=== PATIENT | female | born 1965 | race Caucasian/White ===

== ENCOUNTER 2024-11-20 13:40 | Emergency (ER) | payer OTHER, SELFPAY ==
--- NOTE | ~2024-11-20 | XR_ITS ---
CHEST RADIOGRAPH, PA AND LATERAL CLINICAL HISTORY: Shortness of breath. COMPARISON: None available TECHNIQUE: PA and lateral views of the chest. FINDINGS Device projects over the left atrium. The remainder of the cardiomediastinal silhouette is otherwise unremarkable. Likely calcified granuloma projecting over the right mid to lower lung field. The remainder of the lungs are clear. Prior fracture deformity within the right ribs. Remaining visualized osseous structures and soft tissues are unremarkable. IMPRESSION: No focal infiltrate or effusion. Reviewed, dictated and finalized at location A. LT WORKER
--- NOTE | ~2024-11-20 | CT_ITS ---
EXAMINATION: CTA chest PE protocol DATE: 11/20/2024 18:23 CARTOGRAPHY PROFESSOR INDICATION: Shortness of breath and elevated d-dimer TECHNIQUE: Computed tomographic angiography (CTA) of the chest was performed with 100 mL Omnipaque-35 0 intravenous contrast. The dose-length product was 281.78 mGy-cm. Maximum intensity projection 3D-re constructions of the aorta and other arteries were constructed by the technologist on a separate work station. COMPARISON: None. FINDINGS: No filling defects are identified within the proximal main pulmonary arteries. Thoracic aorta is unremarkable. Implanted device between the right and left atria. The heart is of normal size, without pericardial effusion. Panlobular emphysematous disease. Calcified nodule within the right upper and middle lobes. Remainder of the lungs are clear. IMPRESSION: No pulmonary embolus. No aortic dissection. Reviewed, dictated and finalized at location A. OGRAPHY PROFESSOR
--- NOTE | 2024-11-20 13:43 | ECG_ITS ---
Test Date: 2024-11-20 13:50:24 Measurements Intervals [place] Rate: 104 P: 57 GA: 133 QRS: 42 QRSD: 129 T: 20 QT: 340 QTc: 449 Interpretive Statements SINUS TACHYCARDIA POSSIBLE LEFT ATRIAL ENLARGEMENT [-0.1mV P WAVE IN V1/V2] RIGHT BUNDLE BRANCH BLOCK [120+ ms QRS DURATION, UPRIGHT V1, 40+ ms S IN I/aVL/V4/V5/V6] ABNORMAL ECG Electronically Signed On 11-20-2024 13:53:06 FORM GRADER by Rohan Pinto M.D.
[2024-11-20 13:50] VITALS: BP 147/87; PULSE 108; RESP 18; TEMP 36.1; O2SAT 98
[2024-11-20 14:05] LABS: Basophils Percent Auto 0.2 % (0.2-1.2); Eosinophils Percent Auto 0.2 % (0-4.4); Hematocrit 40.5 % (37.0-47.0); Hemoglobin 14.4 g/dL (12.0-15.0); Immature Granulocyte Absolute 0.02 K/mm3 (0.00-0.031); Immature Granulocyte Percent A 0.2 % (0-0.5); Lymphocytes Absolute Auto 1.62 K/mm3 (0.9-3.2); Lymphocytes Percent Auto 18.6 % (18.3-44.2); Mean Corpuscular HGB Conc 35.6 g/dl (32-36); Mean Corpuscular Hemoglobin 30.4 pg (26-34); Mean Corpuscular Volume 85.4 fl (80-100); Mean Platelet Volume 10.8 fl (7.4-10.4); Monocytes Absolute Auto 0.8 K/mm3 (0.1-0.6); Monocytes Percent Auto 9.3 % (2.6-8.5); Neutrophils Absolute Auto 6.2 K/mm3 (1.3-6.7); Neutrophils Percent Auto 71.5 % (45.5-73.1); Platelet Count Result 302 k/mm3 (150-375); Red Blood Count 4.74 M/mm3 (4.2-5.4); Red Cell Distribution Width 12.7 % (11.5-14.5); White Blood Count 8.7 K/mm3 (4.5-10.0)
[2024-11-20 14:25] LABS: Prothrombin Time 13.9 Seconds (11.1-14.7)
[2024-11-20 14:26] LABS: Partial Thromboplastin Time 24.1 Seconds (22.3-36.8)
[2024-11-20 14:34] LABS: Alanine Aminotransferase 36 U/L (6-35); Albumin Level 4.2 g/dL (3.5-5.1); Alkaline Phosphatase 100 U/L (38-126); Anion Gap 8 mmol/L (4-12); Aspartate Amino Transferase 39 U/L (14-36); Blood Urea Nitrogen 41 mg/dL (7-17); Calcium 10.5 mg/dL (8.4-10.2); Carbon Dioxide 21 mmol/L (22-30); Chloride 105 mmol/L (98-107); Estimated Glomerular Filt Rate 51; Glucose 115 mg/dL (65-110); Potassium 4.2 mmol/L (3.4-5.0); Sodium 134 mmol/L (137-145)
[2024-11-20 14:41] LABS: Influenza A QL RT-PCR Negative (Negative); Influenza B QL RT-PCR Negative (Negative); RSV RNA, RT-PCR Negative (Negative); SARS-CoV-2 RNA PCR Negative (Negative)
[2024-11-20 14:45] LABS: NT Pro B Type Natriuretic Pept 73 pg/mL (19.9-100); Troponin I 0.012 ng/mL (0.000-0.034)
--- NOTE | 2024-11-20 16:15 | ED_ITS ---
HPI - SOB/Dyspnea General Chief Complaint: Shortness of Breath/Dyspnea Stated Complaint: dyspnea Time Seen by Provider: 11/20/24 16:05 Source: patient Mode of arrival: ambulatory Limitations: no limitations History of Present Illness HPI Narrative: This is a 59-year-old female who presents to the ED for chief complaint of dyspnea ongoing for the past several months. Patient states that she becomes dyspneic on exertion quite easily and is seems to be getting worse. States that walking across the room or going up and downstairs caused her to become very winded. States that she was really struggling today after holiness. States that she has a PCP appointment coming up in the spring but she has been putting these symptoms off for several months. Denies associated chest pain, palpitations, cough, fevers, extremity swelling. States history of smoking but quit a couple years ago. Related Data Allergies Allergy/AdvReac Type Severity Reaction Status Date / Time No Known Allergies Allergy Verified 11/20/24 16:11 Review of Systems 2 Review of Systems: All systems as dictated in HPI Exam 2 Narrative: GENERAL: Well-appearing, well-nourished, and in no acute distress. HEAD: Normocephalic, atraumatic. EYES: PERRLA and EOMI. ENT: Nares clear, no rhinorrhea or epistaxis. Mucous membranes moist. Oropharynx without tonsillar hypertrophy exudate or other lesions. NECK: Supple. No adenopathy or masses. CHEST: No respiratory distress. Clear to auscultation. No wheezes rales or rhonchi. HEART: Regular rate and rhythm. No murmur heard. Normal peripheral pulses. ABDOMEN: Soft, nontender, nondistended, normal active bowel sounds. MSK: Normal range of motion. No edema. SKIN: Warm, dry, no rash. NEURO: Alert and oriented x4. No focal deficits. PSYCH: Normal mood and affect. Course Vital Signs Vital signs: Vital Signs Temperature 97 F L 11/20/24 13:50 Pulse Rate 108 H 11/20/24 13:50 Respiratory Rate 18 11/20/24 13:50 Blood Pressure 147/87 H 11/20/24 13:50 Pulse Oximetry 98 11/20/24 13:50 Temperature 97 F L 11/20/24 13:50 Pulse Rate 96 11/20/24 19:30 Respiratory Rate 24 H 11/20/24 19:30 Blood Pressure 188/72 H 11/20/24 18:46 Pulse Oximetry 100 11/20/24 18:46 Oxygen Delivery Room Air 11/20/24 16:08 MDM - SOB/Dyspnea MDM Narrative Medical decision making narrative: This is a 59-year-old female who presents to the ED for chief complaint of shortness of breath increasing over the past several months. Vitals show initial slight tachycardia but normal oxygen saturation on room air. Lab work shows normal white count on the CBC. CMP does show elevated BUN of 41 and creatinine of 1.1. Viral swabs are negative. Troponin negative. D-dimer did come back elevated so CTA was ordered. CTA chest shows no dissection or pulmonary embolus. There is no pneumonia on the CT. The lungs do appear emphysematous which would be consistent with her presentation today. She was given Solu-Medrol dose as well as DuoNeb here. Offered admission for continued breathing treatments and evaluation, however she is feeling well enough to go home and would like to follow-up with her PCP on this. Rx for Medrol Dosepak, albuterol and Symbicort given. Patient will be discharged in stable condition. Supportive measures discussed and return precautions given. Patient is understanding and agreeable with plan for discharge with PCP follow-up. Lab Data 11/20/24 13:55 11/20/24 13:55 Labs: Lab Results 11/20/24 Range/Units 13:55 WBC 8.7 (4.5-10.0) K/mm3 RBC 4.74 (4.2-5.4) M/mm3 Hgb 14.4 (12.0-15.0) g/dL Hct 40.5 (37.0-47.0) % MCV 85.4 (80-100) fl MCH 30.4 (26-34) pg MCHC 35.6 (32-36) g/dl RDW 12.7 (11.5-14.5) % Plt Count 302 (150-375) k/mm3 MPV 10.8 H (7.4-10.4) fl Immature Gran % (Auto) 0.2 (0-0.5) % Neut % (Auto) 71.5 (45.5-73.1) % Lymph % (Auto) 18.6 (18.3-44.2) % Pitkin % (Auto) 9.3 H (2.6-8.5) % Eos % (Auto) 0.2 (0-4.4) % Baso % (Auto) 0.2 (0.2-1.2) % Lymph # (Auto) 1.62 (0.9-3.2) K/mm3 Pitkin # (Auto) 0.8 H (0.1-0.6) K/mm3 Eos # (Auto) 0.0 (0-0.3) K/mm3 Baso # (Auto) 0.0 (0.0-0.1) K/mm3 Abs Immat Gran (auto) 0.02 (0.00-0.031) K/mm3 Absolute Neuts (auto) 6.2 (1.3-6.7) K/mm3 Absolute Nucleated RBC 0.000 (0.0-0.012) K/mm3 Nucleated RBC % 0.0 (0.0-0.2) % PT 13.9 (11.1-14.7) Seconds INR 1.0 APTT 24.1 (22.3-36.8) Seconds D-Dimer 2.00 H (<0.48) ug/mL Sodium 134 L (137-145) mmol/L Potassium 4.2 (3.4-5.0) mmol/L Chloride 105 (98-107) mmol/L Carbon Dioxide 21 L (22-30) mmol/L Anion Gap 8 (4-12) mmol/L BUN 41 H (7-17) mg/dL Creatinine 1.10 H (0.7-1.0) mg/dL Estim Creat Clear Calc Not Reportable Estimated GFR 51 L (59 - ) Glucose 115 H (65-110) mg/dL Calcium 10.5 H (8.4-10.2) mg/dL Total Bilirubin 1.0 (0.2-1.3) mg/dL AST 39 H (14-36) U/L ALT 36 H (6-35) U/L Alkaline Phosphatase 100 (38-126) U/L Troponin I 0.012 (0.000-0.034) ng/mL NT-Pro-B Natriuret Pep 73 (19.9-100) pg/mL Total Protein 7.0 (6.3-8.2) g/dL Albumin 4.2 (3.5-5.1) g/dL Influenza A (RT-PCR) Negative (Negative) Influenza B (RT-PCR) Negative (Negative) RSV (RT-PCR) Negative (Negative) SARS-CoV-2 RNA (RT-PCR) Negative (Negative) Discharge Plan Discharge Clinical Impression: Emphysema lung Patient Disposition: Home, Self-Care Condition: Stable Instructions: Antibiotic Form Additional Instructions: Your exam today does show evidence of emphysema to the lungs. Please take steroid pack and inhalers as prescribed. Use the albuterol inhaler as a rescue inhaler for shortness of breath. Use the Symbicort twice daily. Follow-up with PCP in 1-2 days on this issue. If you have any new or worsening symptoms please return to the ER for further evaluation. Patient Language: Unknown Prescriptions: New methylprednisolone [Medrol (Nabeel)] 4 mg tablets,dose pack See Rx Instructions .ROUTE .COMPLEX Qty: 21 0RF Rx Instructions: for 6 days budesonide-formoterol [Symbicort] 160-4.5 mcg/actuation HFA aerosol inhaler 2 puff inhalation Q12H Qty: 10.2 0RF albuterol sulfate 90 mcg/actuation HFA aerosol inhaler 2 puff inhalation QID PRN (Reason: shortness of breath or wheezing) Qty: 6.7 0RF Follow-up/Referrals: PHYSICIAN NOT ON STAFF,NONSTAFF [Primary Care Provider] - Time of Disposition: 19:17
[2024-11-20 16:28] VITALS: BP 139/90; PULSE 88; RESP 24; O2SAT 98
[2024-11-20 18:46] VITALS: BP 188/72; PULSE 85; RESP 33; O2SAT 100
[2024-11-20] MEDS: SODIUM CHLORIDE 0.9% IV 1,000 ML 999 ML IV CONT (18:46)
[2024-11-20] MEDS: methylPREDNISolone SOD SUCC 125 MG VIAL IV PUSH (18:46)
--- NOTE | 2024-11-20 18:48 | PC.NURSE ---
monitored pt's Sp02 while ambulating. pt maintained 97-98%. pt visibly SOB after ambulation.
[2024-11-20 19:17] VITALS: PULSE 90
[2024-11-20] MEDS: IPRATROPIUM 0.5 MG/ALBUTEROL SULFATE 2.5 MG AMPUL.NEB 3 ML INHALATION (19:19)
[2024-11-20 19:20] VITALS: PULSE 99; RESP 20
[2024-11-20 19:30] VITALS: PULSE 96; RESP 24
--- OUTSIDE RECORDS SUMMARY | 2024-11-27 15:42 | XMS_ITS | Referral Summary ---
Author Organization [facility] [address] Address [address] [place] [address] Care Team Providers Care Supervisor Speech Name Role Phone Gigi Cronin MD Primary Care Provider [phone] Encounters Date Type Department Care Team Description 11/20/2024 Orders Only [facility] [address] [facility] [address] [facility] [place] [address] Gigi Cronin MD from Last 3 Months Allergies No known active allergies Medications escitalopram (LEXAPRO) 10 mg tablet Take 1 tablet (10 mg total) by mouth daily 90 tablet 1 3 Active rosuvastatin (CRESTOR) 10 mg tablet Take 1 tablet (10 mg total) by mouth nightly 90 tablet 1 3 Active rizatriptan FOILING MACHINE OPERATOR (MAXALT-FOILING MACHINE OPERATOR) 10 mg disintegrating tabletIndications: Migraine Take 1 tablet (10 mg total) by mouth once as needed for migraine May repeat in 2 hours if unresolved. Do not exceed 30 mg in 24 hours. 9 tablet 4 Active ergocalciferol (VITAMIN D) 50,000 unit capsule Take 1 capsule by mouth once a week 13 capsule 4 Active ALPRAZolam (XANAX) 0.25 mg tablet Take 1 tablet (0.25 mg total) by mouth 3 (three) times a day as needed for anxiety 90 tablet 4 Active ALPRAZolam (XANAX) 0.25 mg tablet Take 1 tablet (0.25 mg total) by mouth 3 (three) times a day as needed for anxiety 90 tablet 4 024 Discontin ued(Reord er) Active Problems Problem Noted Date Diagnosed Date Mixed hyperlipidemia 02/16/2024 Overview (02/16/2024): Doing well continue present Rx Anxiety 02/16/2024 Overview (02/16/2024): Medications seems to be working well Vitamin D deficiency 02/16/2024 Overview (02/16/2024): Check labs next visit Routine general medical exam ination at a health care facility 08/18/2023 Assessment & Plan (08/18/2023 12:10 PM CDT): [facility] referral entered, due 04/2023 DEXA @ age 61 COLO- due, discussed cologuard v colonoscopy Needs Tdap, PCV20 (+tobacco use hx) and Shingrix Has had AAA screen by [employer], reviewed under media Goal of 150 min/weekly of moderate intensity activity Start Crestor 10mg HS after starting Lexapro Start Lexapro 10mg HS for MDD Resolved Problems Problem Noted Date Diagnosed Date Resolved Date Abnormal mammogram 05/06/2022 3 Social History Tobacco Use Types Packs/Day Years Used Date Smoking Tobacco: Former Cigarettes Q uit: 05/11/2023 Tobacco Cessation:Counseling Given: Not Answered Alcohol Use Standard Drinks/Week Comments Yes 0 (1 standard drink = 0.6 oz pur e alcohol) AUDIT-C Answer Date Recorded Q1: How often do you have a drink containing alc ohol? Monthly or less 08/07/2021 Average Number of Drinks Not on file 021 Frequency of Binge Drinking Not on file 07/24 PHQ-2 Answer Date Recorded PHQ-2 Total Score (If total score is 3 or more points, staff should administer the PHQ-9) 6 08/18/2023 Exercise Vital Sign Answer Date Recorde d On average, how many days pe r week do you engage in moderate to strenuous exercise (like a brisk walk)? 0 days 08/18/2023 On average, how many minutes do you engage in exercise at this level? 0 min 08/18/2023 Personal Safety Answer Date Recorded Getting School Help Needed Not on file 11/12 Comments Unknown Sex and Gender Information Value Date Recorded Sex Assigned at Not on file Legal Sex Female 11:46 AM CDT Gender Identity Not on file Sexual Orientation Not on file Last Filed Vital Signs Vital Sign Reading Time Taken Comments Blood Pressure 134/82 02/16/2024 11:17 AM CDT Pulse 65 02/16/2024 11:17 AM CDT Temperature - - Respiratory Rate - - Oxygen Saturation 98% 08/18/2023 10:28 AM CDT Inhaled Oxygen Concentration - - Weight 86.6 kg (191 lb) 02/16/2024 11:17 AM CDT Height 175.3 cm (5' 9 ) 02/16/2024 11:17 AM CDT Body Mass Index 28.21 02/16/2024 11:17 AM CDT Plan of Treatment Scheduled Procedures Name Priority Associated Diagnoses Date/Ti me COLONOSCOPY Encounter for screening colonoscopy Procedures Procedure Name Priority Date/Time Associated Diagnosis Comments SCAN - LABS 11/20/2024 10:14 PM MARINE MAMMAL TRAINER SCREENING MAMMOGRAM BILATERAL W POLO Schedule Routine, Read Routine (OP Routine) 02/16/2024 12:17 PM CDT Encounter for screening mammogram for malignant neoplasm of breast STOOL DNA ? COLOGUARD Routine 10/20/2023 6:00 AM MARINE MAMMAL TRAINER Colon cancer screening from Last 3 Months or Most Recently Relevant to Health Maintenance Results * SCAN - LABS (11/20/2024 10:14 PM MARINE MAMMAL TRAINER) us Gigi Cronin MD Final Result * Screening Mammogram Bilateral W Polo (02/16/2024 12:17 PM CDT) Anatomical Region Laterality Modality Breast Bilateral Mammography Narrative 02/17/2024 11:48 AM CDT Mammogram Technique: Bilateral Digital Breast Tomosynthesis, Bilateral C-view 2D Screening mammogram. ??Views obtained: ??bilateral craniocaudal and bilateral mediolateral oblique. ??Computer Aided Detection was performed. Mammogram Findings: The present examination has been compared to prior imaging studies performed at [facility]. [facility] on 12/10/2011, and at [facility] on 02/27/2021 and 05/06/2022. The breasts are heterogeneously dense, which may obscure small masses. There is no suspicious abnormality in either breast. There are no significant changes from the prior study. Impression: Finding is benign. Annual screening mammography is recommended. If supplemental screening is desired, breast MRI would be recommended in this patient with heterogeneously dense breasts. OVERALL FINAL ASSESSMENT: BI-RADS CATEGORY 2: ??Benign. Procedure Note Bhavana Leija MD - 02/17/2024 Mammogram Technique: Bilateral Digital Breast Tomosynthesis, Bilateral C-view 2D Screening mammogram. Views obtained: bilateral craniocaudal and bilateral mediolateral oblique. Computer Aided Detection was performed. Mammogram Findings: The present examination has been compared to prior imaging studies performed at [facility]. [facility] on 12/10/2011, andat [facility] on 02/27/2021 and 05/06/2022. The breasts are heterogeneously dense, which may obscure small masses. There is no suspicious abnormality in either breast. There are no significant changes from the prior study. Impression: Finding is benign. Annual screening mammography is recommended. If supplemental screeningis desired, breast MRI would be recommended in this patient with heterogeneously dense breasts. OVERALL FINAL ASSESSMENT: BI-RADS CATEGORY 2: Benign. Alannah Jules NP IMG MAMMO PROCEDURES Fin al Result * Stool DNA - Cologuard (10/20/2023 6:00 AM MARINE MAMMAL TRAINER) Stool DNA - Cologuard Negative Negative [employer] ([employer], [employer] #:[id number]) Comment: NEGATIVE TEST RESULT. A negative Cologuard result indicates a low likelihood that a colorectal cancer (CRC) or advanced adenoma (adenomatous polyps with more advanced pre-malignant features) ??is present. The chance that a person with a negative Cologuard test has a colorectal cancer is less than 1 in 1500 (negative predictive value >99.9%) or has an ??advanced adenoma is less than ??5.3% (negative predictive value 94.7%). These data are based on a prospective cross-sectional study of 10,000 individuals at average risk for colorectal cancer who were screened with both Cologuard and colonoscopy. (Pj Lopez al, N Engl J Med 2014;370(14):1286- 1297) The normal value (reference range) for this assay is negative. COLOGUARD RE-SCREENING RECOMMENDATION: Periodic colorectal cancer screening is an important part of preventive healthcare for asymptomatic individuals at average risk for colorectal cancer. ??Following a negative Cologuard result, the [place] Cancer Society and U.S. Multi-Society Task Force screening guidelines recommend a Cologuard re-screening interval of 3 years. References: [place] Cancer Society Guideline for Colorectal Cancer Screening: https://www.cancer.org/cancer/kdhxo-yalnmx-qlayck/mszroxits-witibqzhc-emnyjgw/ac s-rec ommendations.html.; Eliecer DK, Jorge A GUSMAN, Al ButlerK, Colorectal Cancer Screening: Recommendations for Physicians and Patients from the U.S. Multi-Society Task Force on Colorectal Cancer Screening , Am J Gastroenterology 2017; 112:1690-8538. TEST DESCRIPTION: Composite algorithmic analysis of stool DNA-biomarkers with hemoglobin immunoassay. ?? Quantitative values of individual biomarkers are not reportable and are not associated with individual biomarker result reference ranges. Cologuard is intended for colorectal cancer screening of adults of either sex, 45 years or older, who are at average-risk for colorectal cancer (CRC). Cologuard has been approved for use by the U.S. FDA. The performance of Cologuard was established in a cross sectional study of average-risk adults aged 50-84. Cologuard performance in patients ages 45 to 49 years was estimated by sub-group analysis of near-age groups. Colonoscopies performed for a positive result may find as the most clinically significant lesion: colorectal cancer [4.0%], advanced adenoma (including sessile serrated polyps greater than or equal to 1cm diameter) [20%] or non- advanced adenoma [31%]; or no colorectal neoplasia [45%]. These estimates are derived from a prospective cross-sectional screening study of 10,000 individuals at average risk for colorectal cancer who were screened with both Cologuard and colonoscopy. (Pj Lopez al, N Engl J Med 2014;370(14):3008-3067.) Cologuard may produce a false negative or false positive result (no colorectal cancer or precancerous polyp present at colonoscopy follow up). A negative Cologuard test result does not guarantee the absence of CRC or advanced adenoma (pre-cancer). The current Cologuard screening interval is every 3 years. ([place] Cancer Society and U.S. Multi-Society Task Force). Cologuard performance data in a 10,000 patient pivotal study using colonoscopy as the reference method can be accessed at the following location: www.Trendient.Qzzr/results. Additional description of the Cologuard test process, warnings and precautions can be found at www.cologuard.com. Stool 10/20/2023 6:00 AM MARINE MAMMAL TRAINER 11/06/2023 6:44 PM MARINE MAMMAL TRAINER Alannah Jules ACUTE CARE SURGEON LAB BODY FLUIDS AND STOO LS ORDERABLES Final Result [facility] (CLIA #:[id number]) [place] [address] from Last 3 Months or Most Recently Relevant to [place] [address] [facility] [address] [place] [address] [facility] [address] [place] [address] Care Teams Supervisor Speech Relationship Specialty Start Date End Date Gigi Cronin MD [address] [facility] [address] [place] [address] PCP - General Internal Medicine 09/17/20
--- OUTSIDE RECORDS SUMMARY | 2024-11-27 15:42 | XMS_ITS | Encounter Summary ---
Author Organization [facility] Address [address] [place] [address] Care Team Providers Care Attending Radiologist Name Role Phone Gigi Cronin MD Primary Care Provider [phone] Reason for Visit * Reason Comments Hyperlipidemia Headache Anxiety Encounter Details Date Type Department Care Team (Late st Contact Info) Description 02/16/2024 11:30 AM CDT Office Visit [facility] [address] [place] [id number] Gigi Cronin MD [address] [facility] [place] [address] Mixed hyperlipidemia (Primary Dx); Anxiety; Vitamin D deficiency Social History Tobacco Use Types Packs/Day Years [...] on file Sexual Orientation Not on file documented as of this encounter Last Filed Vital Signs Vital Sign Reading Time Taken Comments Blood Pressure 134/82 02/16/2024 11:17 AM CDT Pulse 65 02/16/2024 11:17 AM CDT Temperature - - Respiratory Rate - - Oxygen Saturation - - Inhaled Oxygen Concentration - - Weight 86.6 kg (191 lb) 02/16/2024 11:17 AM CDT Height 175.3 cm (5' 9 ) 02/16/2024 11:17 AM CDT Body Mass Index 28.21 02/16/2024 11:17 AM CDT documented in this encounter Progress Notes * Gigi Cronin MD - 02/16/2024 11:30 AM CDT Images from the original note were not included. Subjective/Objective Patient ID: Yesika Mccullough is a 58 y.o. female. Chief Complaint Hyperlipidemia, Headache, and Anxiety Hyperlipidemia Pertinent negatives include no chest pain or shortness of breath. Headache Anxiety Patient reports no chest pain, dizziness, nausea, nervous/anxious behavior, palpitations or shortness of breath. patient here today to follow-up her health issues. Number 1 hyperlipidemia remains on rosuvastatin 10 mg daily lipid was checked at July History of headache has noted take any pain medication or Maxalt in some time. History of anxiety on Lexapro and alprazolam doing quite well. Past Surgical History: Procedure Laterality Date APPENDECTOMY BREAST BIOPSY Left Benign COLECTOMY Family History Problem Relation Age of Onset Heart disease Mother Heart attack Mother 82 Heart disease Father Abdominal Aortic Aneurysm Father No Known Problems Brother Stroke Maternal Grandmother There is no immunization history on file for this patient. Current Outpatient Medications Medication Sig ALPRAZolam (XANAX) 0.25 mg tablet Take 1 tablet (0.25 mg total) by mouth 3 (three) times a day as needed for anxiety ergocalciferol (VITAMIN D) 50,000 unit capsule Take 1 capsule (50,000 Units total) by mouth once a week escitalopram (LEXAPRO) 10 mg tablet Take 1 tablet (10 mg total) by mouth daily rizatriptan FABRIC STRETCHER (MAXALT-FABRIC STRETCHER) 10 mg disintegrating tablet Take 1 tablet (10 mg total) by mouth once as needed for migraine May repeat in 2 hours if unresolved. Do not exceed 30 mg in 24 hours. rosuvastatin (CRESTOR) 10 mg tablet Take 1 tablet (10 mg total) by mouth nightly Review of Systems Constitutional: Negative for appetite change, fatigue, fever and unexpected weight change. HENT: Negative for ear pain, hearing loss and sore throat. Eyes: Negative for visual disturbance. Respiratory: Negative for cough, shortness of breath and wheezing. Cardiovascular: Negative for chest pain, palpitations and leg swelling. Gastrointestinal: Negative for abdominal pain, anal bleeding, blood in stool, constipation, diarrhea, nausea and vomiting. Endocrine: Negative for cold intolerance, heat intolerance, polydipsia, polyphagia and polyuria. Genitourinary: Negative for dysuria and hematuria. Musculoskeletal: Negative for arthralgias, back pain and joint swelling. Skin: Negative for rash. Neurological: Positive for headaches. Negative for dizziness and weakness. Hematological: Negative for adenopathy. Does not bruise/bleed easily. Psychiatric/Behavioral: Negative for dysphoric mood. The patient is not nervous/anxious. Breast: Negative for tenderness and lump(s). Patient Vital Signs for the past 24 hrs: BP Pulse Height Weight 02/16/24 1117 134/82 65 175.3 cm (5' 9 ) 86.6 kg (191 lb) Wt Readings from Last 3 Encounters: 02/16/24 86.6 kg (191 lb) 08/18/23 88.5 kg (195 lb) 05/06/22 81.6 kg (180 lb) Physical Exam Vitals and nursing note reviewed. Constitutional: General: She is not in acute distress. Appearance: Normal appearance. She is normal weight. HENT: Head: Normocephalic and atraumatic. Right Ear: Tympanic membrane normal. Left Ear: Tympanic membrane normal. Nose: Nose normal. No congestion. Mouth/Throat: Mouth: Mucous membranes are moist. Pharynx: Oropharynx is clear. No oropharyngeal exudate. Eyes: General: No scleral icterus. Extraocular Movements: Extraocular movements intact. Conjunctiva/sclera: Conjunctivae normal. Pupils: Pupils are equal, round, and reactive to light. Cardiovascular: Rate and Rhythm: Normal rate and regular rhythm. Pulses: Normal pulses. Heart sounds: Normal heart sounds. No murmur heard. No gallop. Pulmonary: Effort: Pulmonary effort is normal. Breath sounds: Normal breath sounds. No wheezing, rhonchi or rales. Abdominal: General: Abdomen is flat. Bowel sounds are normal. Palpations: Abdomen is soft. There is no mass. Tenderness: There is no abdominal tenderness. There is no guarding. Hernia: No hernia is present. Musculoskeletal: General: No swelling, tenderness or deformity. Normal range of motion. Cervical back: No rigidity. Right lower leg: No edema. Left lower leg: No edema. Lymphadenopathy: Cervical: No cervical adenopathy. Skin: General: Skin is warm and dry. Capillary Refill: Capillary refill takes less than 2 seconds. Findings: No rash. Neurological: General: No focal deficit present. Mental Status: She is alert and oriented to person, place, and time. Mental status is at baseline. Cranial Nerves: No cranial nerve deficit. Motor: No weakness. Deep Tendon Reflexes: Reflexes normal. Psychiatric: Mood and Affect: Mood normal. Thought Content: Thought content normal. Assessment/Plan Diagnoses and all orders for this visit: Mixed hyperlipidemia (E78.2) (Primary) Comments: Doing well continue present Rx Anxiety (F41.9) Comments: Medications seems to be working well Vitamin D deficiency (E55.9) Comments: Check labs next visit Labs Lab Results Component Value Date HGBA1C 5.1 08/18/2023 No results found for: POCCHOL Lab Results Component Value Date POCHDL 45 08/18/2023 Lab Results Component Value Date POCLDL 160 08/18/2023 Lab Results Component Value Date POCTRIG 66 08/18/2023 No results found for: A1C Lab Results Component Value Date CREATININE 0.77 08/18/2023 CREATININE 0.99 09/19/2020 Lab Results Component Value Date COLORU Yellow 08/18/2023 GLUCOSEUR Negative 08/18/2023 KETONESU Negative 08/18/2023 Gigi Cronin MD documented in this encounter Plan of Treatment Scheduled Procedures Name Priority Associated Diagnoses Date/Ti va COLONOSCOPY Encounter for screening colonoscopy documented as of this encounter Visit Diagnoses Diagnosis Mixed hyperlipidemia- Primary Anxiety Anxiety state, unspecified Vitamin D deficiency documented in this encounter Care Teams Attending Radiologist Relationship Specialty Start Date End Date Gigi Cronin MD [address] [address] PCP - General Internal Medicine 09/17/20 documented as of this encounter
--- OUTSIDE RECORDS SUMMARY | 2024-11-27 15:42 | XMS_ITS | Encounter Summary ---
Author Organization [facility] Address [address] [place] [address] Care Team Providers Care Cabin Supervisor Name Role Phone Gigi Cronin MD Primary Care Provider [phone] Encounter Details Date Type Department Care Team (Late st Contact Info) Description 08/19/2023 [facility] [address] [facility] [address] [place] [address] Alannah Jules, SECURITY INVESTIGATOR [address] [facility] [address] [place] [address] Social History Tobacco Use Types Packs/Day Years Used Date Smoking Tobacco: Former Cigarettes Q uit: 05/11/2023 Alcohol Use Standard Drinks/Week Comments Yes 0 [...] exercise at this level? 0 min 08/18/2023 Comments Unknown Sex and Gender Information Value Date Recorded Sex Assigned at Not on file Legal Sex Female 11:46 AM CDT Gender Identity Not on file Sexual Orientation Not on file documented as of this encounter Miscellaneous Notes * Telephone Encounter - Bernice Moran MA - 08/21/2023 8:53 AM CDT [facility] * Telephone Encounter - Sumaya Haji MA - 08/19/2023 4:21 PM CDT LM to call ofc * Telephone Encounter - Sumaya Haji MA - 08/19/2023 1:18 PM CDT ----- Message from Alannah Jules NP sent at 08/19/2023 12:29 PM CDT ----- Labs showed low Vitamin D. I sent a capsule to take weekly. Also showed some crystals in urine indicating possible kidney stones. Lots of water, limited caffeine. documented in this encounter Plan of Treatment Scheduled Procedures Name Priority Associated Diagnoses Date/Ti dc COLONOSCOPY Encounter for screening colonoscopy documented as of this encounter Visit Diagnoses Not on filedocumented in this encounter Care Teams Cabin Supervisor Relationship Specialty Start Date End Date Gigi Cronin MD [address] [place] [address] PCP - General Internal Medicine 09/17/20 documented as of this encounter
--- OUTSIDE RECORDS SUMMARY | 2024-11-27 15:42 | XMS_ITS | Encounter Summary ---
Author Organization [facility] Address [address] [place] [address] Care Team Providers Care Networking Administrator Name Role Phone Gigi Cronin MD Primary Care Provider [phone] Encounter Details Date Type Department Care Team (Late st Contact Info) Description 09/30/2023 [facility] [address] [facility] [address] [place] [address] Gigi Cronin MD [address] [facility] [address] [place] [address] Social History Tobacco Use Types [...] Telephone Encounter - Bernice Moran MA - 10/02/2023 10:03 AM CST Lm for patient and order entered. SALES REPRESENTATIVE * Telephone Encounter - Alannah Jules NP - 09/30/2023 1:04 PM WINE SALES REPRESENTATIVE Ok to do as long as she understands if it is positive she will need actual colonoscopy and that will then be diagnostic which will have a larger cost than as a screening SALES REPRESENTATIVE * Telephone Encounter - Bernice Moran MA - 09/30/2023 10:08 AM CST Pt changed her mind about having a colonoscopy and prefers to have Cologuard and asking if you willorder . She states she did have abnormal colonoscopy and had Colectomy SALES REPRESENTATIVE documented in this encounter Plan of Treatment Scheduled Procedures Name Priority Associated Diagnoses Date/Ti me COLONOSCOPY Encounter for screening colonoscopy documented as of this encounter Procedures Procedure Name Priority Date/Time Associated Diagnosis Comments STOOL DNA ? COLOGUARD Routine 10/20/2023 6:00 AM WINE SALES REPRESENTATIVE Colon cancer screening documented in this encounter Results * Stool DNA - Cologuard (10/20/2023 6:00 AM WINE SALES REPRESENTATIVE) Stool DNA - Cologuard Negative Negative [employer] (CLIA #:[id number]) Comment: NEGATIVE TEST RESULT. A negative Cologuard [...] screened with both Cologuard and colonoscopy. (Pj Grace et al, N Engl J Med 2014;370(14):1286- 1297) The normal value (reference range) for this assay is negative. COLOGUARD RE-SCREENING RECOMMENDATION: Periodic colorectal cancer screening is an important part of preventive healthcare for asymptomatic individuals at average risk for colorectal cancer. ??Following a negative Cologuard result, the [place] Cancer Society and U.S. Multi-Society Task Force screening guidelines recommend a Cologuard re-screening interval of 3 years. References: [place] Cancer Society Guideline for Colorectal Cancer Screening: https://www.cancer.org/cancer/qnalx-zuatsr-rsjbcl/krpkkkhgy-rfvlwgeat-lmoipzb/ac s-rec ommendations.html.; Eliecer SAMUELS, Jorge A GUSMAN, Al ButlerK, Colorectal Cancer Screening: Recommendations for Physicians and Patients from the U.S. Multi-Society Task Force on Colorectal Cancer Screening , Am J Gastroenterology 2017; 112:2146-8979. TEST DESCRIPTION: Composite algorithmic analysis of stool [...] screened with both Cologuard and colonoscopy. (Pj Grace et al, N Engl J Med 2014;370(14):5246-4504.) Cologuard may produce a false negative or false positive result (no colorectal cancer or precancerous polyp present at colonoscopy follow up). A negative Cologuard test result does not guarantee the absence of CRC or advanced adenoma (pre-cancer). The current Cologuard screening interval is every 3 years. ([place] Cancer Society and U.S. Multi-Society Task Force). Cologuard performance data in a 10,000 patient pivotal study using colonoscopy as the reference method can be accessed at the following location: www.[employer]la[employer]la[employer]. [employer]/results. Additional description of the Cologuard test process, warnings and precautions can be found at www.[email or web address].[email or web address]. Stool 10/20/2023 6:00 AM WINE SALES REPRESENTATIVE 11/06/2023 6:44 PM WINE SALES REPRESENTATIVE us Alannah Jules CHIEF PSYCHOLOGY LAB BODY FLUIDS AND STOO LS ORDERABLES Final Result [employer] (CLIA #:[id number]) [place] [address] documented in this encounter Visit Diagnoses Diagnosis Colon cancer screening- Primary Special screening for malignant neoplasms, colon documented in this encounter Care Teams Networking Administrator Relationship Specialty Start Date End Date Gigi Cronin MD [address] [place] [address] PCP - General Internal Medicine 09/17/20 documented as of this encounter
--- OUTSIDE RECORDS SUMMARY | 2024-11-27 15:42 | XMS_ITS | Clinical Summary ---
Author Organization [facility] [address] Address [address] [place] [address] Care Team Providers Care Consultant Name Role Phone Gigi Cronin MD Primary Care Provider [phone] Allergies No known active allergies Medications escitalopram (LEXAPRO) 10 mg tablet Take 1 tablet (10 mg total) by mouth daily 90 tablet 1 3 Active rosuvastatin (CRESTOR) 10 mg tablet Take 1 tablet (10 mg total) by mouth nightly 90 tablet 1 3 Active rizatriptan SUPERVISOR OF OPERATIONS (MAXALT-SUPERVISOR OF OPERATIONS) 10 mg disintegrating tabletIndications: Migraine Take 1 [...] and Shingrix Has had AAA screen by [employer], reviewed under media Goal of 150 min/weekly of moderate intensity activity Start Crestor 10mg HS after starting Lexapro Start Lexapro 10mg HS for MDD Resolved Problems Problem Noted Date Diagnosed Date Resolved Date Abnormal mammogram 05/06/2022 3 Encounters Date Type Department Care Team Description 11/20/2024 Orders Only [facility] [address] [facility] [address] [place] [facility] [place] [phone] Gigi Cronin MD from Last 3 Months Surgical History Surgery Date Site/Laterality Comments BREAST BIOPSY Left Benign APPENDECTOMY COLECTOMY Medical History Medical History Date Comments Headache Anxiety Family History Medical History Relation Name Comments No Known Problems Brother Abdominal Aortic Aneurysm Father Heart disease Father Stroke Maternal Grandmother Heart attack Mother Heart disease Mother Relation Name Status Comments Brother Alive Father Maternal Grandfather Maternal Grandmother Mother Paternal Grandfather Paternal Grandmother Social History Tobacco Use Types Packs/Day Years Used Date Smoking Tobacco: Former Cigarettes Q uit: 05/11/2023 Tobacco Cessation:Counseling Given: Not Answered Alcohol Use Standard Drinks/Week Comments Yes 0 (1 standard drink = 0.6 oz pur e alcohol) AUDIT-C Answer Date Recorded Q1: How often do you have a drink containing alc ohol? Monthly or less 08/07/2021 Average Number of Drinks Not on file 09/15/2 021 Frequency of Binge Drinking Not on [...] on file Sexual Orientation Not on file Obstetrics History Last Filed Vital Signs Vital Sign Reading [...] Date/Ti me COLONOSCOPY Encounter for screening colonoscopy Health Maintenance Due Date Last Done Comments Cervical Cancer Screening 1966 Hepatitis C Screening 1966 DTaP/Tdap/Td Vaccine (1 - Tdap) 1977 Hepatitis B Screening 1984 Zoster Vaccine (1 of 2) 2016 Influenza Vaccine (#1) 2024 9, 09/10/2017, 09/15/2016 Depression Screening 08/18/2024 08/18/2023 Regular Well Visit/Exam 18-64 08/18/2024 08/18/2023, 09/19/2020 Breast Cancer Screening-Mammogram 02/15/2025 02/16/2024, 05/06/2022, 02/27/2021 Colon Cancer Screening-Colonoscopy 10/20/2026 Colon Cancer Screening-DNA Stool Discontinued 10/20/2023 Colon Cancer Screening-FIT Discontinued 10/20/2023 Pneumococcal vaccine <65 Aged Out No longer eligible based on patient's age to complete this topic Procedures Procedure Name Priority Date/Time Associated Diagnosis Comments SCAN - LABS 11/20/2024 10:14 PM TECHNICAL ILLUSTRATIONS MAP INKER SCREENING MAMMOGRAM BILATERAL W POLO Schedule Routine, Read Routine (OP Routine) 02/16/2024 12:17 PM CDT Encounter for screening mammogram for malignant neoplasm of breast STOOL DNA ? COLOGUARD Routine 10/20/2023 6:00 AM TECHNICAL ILLUSTRATIONS MAP INKER Colon cancer screening from Last 3 Months or Most Recently Relevant to Health Maintenance Results * SCAN - LABS (11/20/2024 10:14 PM TECHNICAL ILLUSTRATIONS MAP INKER) us Gigi Cronin MD Final Result * [...] compared to prior imaging studies performed at [facility]. ??[facility] on 12/10/2011, and at [facility] on 02/27/2021 and 05/06/2022. The breasts are [...] compared to prior imaging studies performed at [facility]. [facility]. The breasts are heterogeneously dense, which may obscure small masses. There is no suspicious abnormality in either breast. There are no significant changes from the prior study. Impression: Finding is benign. Annual screening mammography is recommended. If supplemental screeningis desired, breast MRI would be recommended in this patient with heterogeneously dense breasts. OVERALL FINAL ASSESSMENT: BI-RADS CATEGORY 2: Benign. us Alannah Jules NP IMG MAMMO PROCEDURES Fin al Result * Stool DNA - Cologuard (10/20/2023 6:00 AM TECHNICAL ILLUSTRATIONS MAP INKER) Stool DNA - Cologuard Negative Negative [employer] (YOOWALKIA #:[id number]) Comment: NEGATIVE TEST RESULT. A negative Cologuard [...] cancer. ??Following a negative Cologuard result, the [place] Cancer Society and U.S. Multi-Society Task Force screening guidelines recommend a Cologuard re-screening interval of 3 years. References: [place] Cancer Society Guideline for Colorectal Cancer Screening: https://www.cancer.org/cancer/gmpph-oqpsfa-ohoxwk/wnksmulyj-dsexkjgyi-taimgki/ac s-rec ommendations.html.; Eliecer DK, Jorge A CR, Al ButlerK, Colorectal Cancer Screening: Recommendations for Physicians and Patients from the U.S. Multi-Society Task Force on Colorectal Cancer Screening , Am J Gastroenterology 2017; 112:7114-1833. TEST DESCRIPTION: Composite algorithmic analysis of stool [...] (Pj Lopez al, N Engl J Med 2014;370(14):1471-5291.) Cologuard may produce a false negative or false positive result (no colorectal cancer or precancerous polyp present at colonoscopy follow up). A negative Cologuard test result does not guarantee the absence of CRC or advanced adenoma (pre-cancer). The current Cologuard screening interval is every 3 years. ([place] Cancer Society and U.S. Multi-Society Task Force). Cologuard performance data in a 10,000 patient pivotal study using colonoscopy as the reference method can be accessed at the following location: www.[employer]/results. Additional description of the Cologuard test process, warnings and precautions can be found at www.[employer]. Stool 10/20/2023 6:00 AM TECHNICAL ILLUSTRATIONS MAP INKER 11/06/2023 6:44 PM TECHNICAL ILLUSTRATIONS MAP INKER us Alannah Jules SENIOR COST ANALYST LAB BODY FLUIDS AND STOO LS ORDERABLES Final Result [facility] (CLIA #:[id number]) [place] [address] from Last 3 Months or Most Recently Relevant to Health [place] [address] [facility] HMO/PPO Address: [address] [address] [place] [address] [address] [address] [facility] [place] [address] Care Teams Consultant Relationship Specialty Start Date End Date Gigi Cronin MD [address] [address] PCP - General Internal Medicine 09/17/20
--- OUTSIDE RECORDS SUMMARY | 2024-11-27 15:42 | XMS_ITS | Encounter Summary ---
Author Organization [facility] Healthcare Address [address] [place] [address] Care Team Providers Care Environmental Health Manager Name Role Phone Gigi Cronin MD Primary Care Provider [phone] Reason for Referral * Diagnostic Imaging (Routine) - Closed Specialty Diagnoses / Procedures Referred By Rose saleh Referred To Contact Diagnoses Encounter for screening mammogram for malignant neoplasm of breast Procedures Screening Mammogram Bilateral W Alannah Garner NP [address] [address] Phone: tel: fax: [address] [address] Referral ID Status Reason Start Date Expiration Date Visits Re quested Visits Authorized [id number] Closed 08/18/2023 09/16/2024 1 1 Reason for Visit * Diagnostic Imaging (Routine) - Closed Specialty Diagnoses / Procedures Referred By Rose saleh Referred To Contact Diagnoses Encounter for screening mammogram for malignant neoplasm of breast Procedures Screening Mammogram Bilateral W Alannah Garner NP [address] [address] Phone: tel: fax: [address] [phone] Referral ID Status Reason Start Date Expiration Date Visits Re quested Visits Authorized [id number] Closed 08/18/2023 09/16/2024 1 1 Encounter Details Date Type Department Care Team (Latest Contact Info) Description 02/16/2024 11:58 AM CDT - 02/16/2024 11:59 PM CDT Hospital Encounter [facility] ([facility]) [address] [place] [address] Encounter for screening mammogram for malignant neoplasm of breast Discharge Disposition: Discharge to home or self care Social History Tobacco Use Types Packs/Day Years [...] on file documented as of this encounter Medications at Time of Discharge escitalopram (LEXAPRO) 10 mg tablet Take 1 tablet (10 mg total) by mouth daily 90 tablet 1 08/18/2023 rosuvastatin (CRESTOR) 10 mg tablet Take 1 tablet (10 mg total) by mouth nightly 90 tablet 1 08/18/2023 ALPRAZolam (XANAX) 0.25 mg tablet Take 1 tablet (0.25 mg total) by mouth 3 (three) times a day as needed for anxiety 90 tablet 01/18/2024 4 ergocalciferol (VITAMIN D) 50,000 unit capsule Take 1 capsule (50,000 Units total) by mouth once a week 13 capsule 3 08/19/2023 4 rizatriptan BLOCK HACKER (MAXALT-BLOCK HACKER) 10 mg disintegrating tabletIndications:Mi graine Take 1 tablet (10 mg total) by mouth once as needed for migraine May repeat in 2 hours if unresolved. Do not exceed 30 mg in 24 hours. 9 tablet 04/22/2023 4 documented as of this encounter Discharge Disposition Disposition Code Departure Means Destination Discharge to home or self care documented in this encounter Miscellaneous Notes * Result Encounter Note - Gigi Cronin MD - 02/16/2024 11:59 PM CDT Normal mammogram, would suggest repeat mammogram in one year. Please do monthly breast self exams. documented in this encounter Plan of Treatment Scheduled Procedures Name Priority Associated Diagnoses Date/Ti me COLONOSCOPY Encounter for screening colonoscopy documented as of this encounter Procedures Procedure Name Priority Date/Time Associated Diagnosis Comments SCREENING MAMMOGRAM BILATERAL W POLO Schedule Routine, Read Routine (OP Routine) 02/16/2024 12:17 PM CDT Encounter for screening mammogram for malignant neoplasm of breast documented in this encounter Results * Screening Mammogram Bilateral W Polo (02/16/2024 12:17 PM CDT) Anatomical Region Laterality Modality Breast Bilateral Mammography Narrative 02/17/2024 11:48 AM CDT Mammogram Technique: Bilateral Digital Breast Tomosynthesis, Bilateral C-view 2D Screening mammogram. ??Views obtained: ??bilateral craniocaudal and bilateral mediolateral oblique. ??Computer Aided Detection was performed. Mammogram Findings: The present examination has been compared to prior imaging studies performed at [facility]. [place]. [place] on 12/10/2011, and at [facility] on 02/27/2021 and 05/06/2022. The breasts [...] compared to prior imaging studies performed at [facility]. [facility], [facility]. The breasts [...] NP IMG MAMMO PROCEDURES Fin al Result documented in this encounter Visit Diagnoses Diagnosis Encounter for screening mammogram for malignant neoplasm of breast documented in this encounter Care Teams Environmental Health Manager Relationship Specialty Start Date End Date Gigi Cronin MD [address] [address] PCP - General Internal Medicine 09/17/20 documented as of this encounter
--- OUTSIDE RECORDS SUMMARY | 2024-11-27 15:42 | XMS_ITS | Encounter Summary ---
Author Organization [facility] Address [address] [place] [address] Care Team Providers Care Neurologist Name Role Phone Gigi Cronin MD Primary Care Provider [phone] Encounter Details Date Type Department Care Team (Late st Contact Info) Description 10/27/2023 [facility] [address] [facility] [address] [place] [address] Alannah Jules, TUCK POINTER HELPER [address] [facility] [address] [place] [address] Social History Tobacco Use Types [...] Telephone Encounter - Bernice Moran MA - 10/27/2023 9:29 AM CST Pt aware TIC SURGEON * Telephone Encounter - Sumaya Haji MA - 10/27/2023 9:12 AM CST LM to call ofc TIC SURGEON * Telephone Encounter - Sumaya Haji MA - 10/27/2023 9:11 AM CST ----- Message from Alannah Jules NP sent at 10/27/2023 8:56 AM PLASTIC SURGEON ----- Unfortunately will need to repeat cologuard, it was not able to be processed. They should be reaching out. TIC SURGEON documented in this encounter Plan of Treatment Scheduled Procedures Name Priority Associated Diagnoses Date/Ti me COLONOSCOPY Encounter for screening colonoscopy documented as of this encounter Visit Diagnoses Not on filedocumented in this encounter Care Teams Neurologist Relationship Specialty Start Date End Date Gigi Cronin MD [address] [place] [address] PCP - General Internal Medicine 09/17/20 documented as of this encounter
--- OUTSIDE RECORDS SUMMARY | 2024-11-27 15:43 | XMS_ITS | Encounter Summary ---
Author Organization [facility] Healthcare Address [address] [place] [address] Care Team Providers Care Ping Pong Table Assembler Name Role Phone Gigi Cronin MD Primary Care Provider Reason for Referral * Diagnostic Imaging (Routine) - Closed Specialty Diagnoses / Procedures Referred By Rose saleh Referred To Contact Diagnoses Abnormal mammogram Procedures US Breast Left Limited Gigi Cronin MD [address] [employer] [address] [address] Phone: tel: fax: [address] [address] Referral ID Status Reason Start Date Expiration Date Visits Re quested Visits Authorized [id number] Closed 03/06/2021 04/05/2022 1 1 Reason for Visit * Diagnostic Imaging (Routine) - Closed Specialty Diagnoses / Procedures Referred By Rose saleh Referred To Contact Diagnoses Abnormal mammogram Procedures US Breast Left Limited Gigi Cronin MD [address] [employer] [address] [address] Phone: tel: fax: [address] [address] Referral ID Status Reason Start Date Expiration Date Visits Re quested Visits Authorized [id number] Closed 03/06/2021 04/05/2022 1 1 Encounter Details Date Type Department Care Team (Latest Contact Info) Description 03/27/2021 1:45 PM CDT - 03/27/2021 11:59 PM CDT Hospital Encounter [facility]) [address] [place] [address] Gigi Cronin MD [address] [facility] [address] [place] [address] Abnormal mammogram Discharge Disposition: Discharge to home or self care Social History Tobacco Use Types Packs/Day Years Used Date Smoking Tobacco: Every Day Cigarettes Alcohol Use Standard Drinks/Week Comments Yes 0 (1 standard drink = 0.6 oz pur e alcohol) Comments Unknown Sex and Gender Information Value Date Recorded Sex Assigned at Not on file Legal Sex Female 11:46 AM CDT Gender Identity Not on file Sexual Orientation Not on file documented as of this encounter Medications at Time of Discharge ALPRAZolam (XANAX) 0.25 mg tablet Take 1 tablet (0.25 mg total) by mouth 3 (three) times a day 90 tablet 11/26/2020 1 rizatriptan IT PROJECT LEAD (MAXALT-IT PROJECT LEAD) 10 mg disintegrating tabletIndications:Mi graine Take 1 tablet (10 mg total) by mouth once as needed for migraine May repeat in 2 hours if unresolved. Do not exceed 30 mg in 24 hours. 9 tablet 1 09/26/2020 1 documented as of this encounter Discharge Disposition Disposition Code Departure Means Destination Discharge to home or self care documented in this encounter Plan of Treatment Scheduled Procedures Name Priority Associated Diagnoses Date/Ti wi COLONOSCOPY Encounter for screening colonoscopy documented as of this encounter Procedures Procedure Name Priority Date/Time Associated Diagnosis Comments US BREAST LEFT LIMITED Schedule Routine, Read Routine (OP Routine) 03/27/2021 2:25 PM CDT Abnormal mammogram documented in this encounter Results * US Breast Left Limited (03/27/2021 2:25 PM CDT) Anatomical Region Laterality Modality Breast Left Ultrasound 03/27/2021 2:30 PM CDT Impressions 03/27/2021 3:44 PM CDT 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 ??Recommend follow-up ultrasound in 6 months. OVERALL FINAL ASSESSMENT: BI-RADS Category 3: Probably Benign. Recommend follow-up breast ultrasound in 6 months. Dictated by: Solo Mckoy M.D. The radiology attending physician has personally reviewed this study, and had reviewed and/or edited this written report and agrees with it. Electronically signed by: Paradise Lynch M.D. Narrative 03/27/2021 3:44 PM CDT EXAMINATION: LEFT BREAST ULTRASOUND HISTORY: 56-year-old female with no personal history of breast cancer who presents for left breast ultrasound after a left breast 7 mm round mass was identified on recent screening mammogram. COMPARISON: Screening mammogram dated 02/27/2021, 12/10/2011 TECHNIQUE: Directed ultrasound evaluation of the LEFT breast was performed. ULTRASOUND FINDINGS: In the LEFT breast at the 7 o'clock position 3 cm from the nipple there is a 0.8 cm x 0.3 cm x 0.6 cm area of clustered microcysts which correlates to the mass seen on recent mammogram dated 02/27/2021. Procedure Note Paradise Lynch MD - 03/27/2021 EXAMINATION: LEFT BREAST ULTRASOUND HISTORY: 56-year-old female with no personal history of breast cancer who presents for left breast ultrasound after a left breast 7 mm round mass was identified on recent screening mammogram. COMPARISON: Screening mammogram dated 02/27/2021, 12/10/2011 TECHNIQUE: Directed ultrasound evaluation of the LEFT breast was performed. ULTRASOUND FINDINGS: In the LEFT breast at the 7 o'clock position 3 cm from the nipple there is a 0.8 cm x 0.3 cm x 0.6 cm area of clustered microcysts which correlates to the mass seen on recent mammogram dated 02/27/2021. 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 Recommend follow-up ultrasound in 6 months. OVERALL FINAL ASSESSMENT: BI-RADS Category 3: Probably Benign. Recommend follow-up breast ultrasound in 6 months. Dictated by: Solo Mckoy M.D. The radiology attending physician has personally reviewed this study, and had reviewed and/or edited this written report and agrees with it. Electronically signed by: Paradise Lynch M.D. Gigi Cronin MD IMG MAMMO PROCEDURES Final Re sult documented in this encounter Visit Diagnoses Diagnosis Abnormal mammogram Abnormal mammogram, unspecified documented in this encounter Care Teams Ping Pong Table Assembler Relationship Specialty Start Date End Date Gigi Cronin MD [address] [address] PCP - General Internal Medicine 09/17/20 documented as of this encounter
--- OUTSIDE RECORDS SUMMARY | 2024-11-27 15:43 | XMS_ITS | Encounter Summary ---
Author Organization [facility] Address [address] [place] [address] Care Team Providers Care Retina Subspecialist Name Role Phone Gigi Cronin MD Primary Care Provider [phone] Encounter Details Date Type Department Care Team (Late st Contact Info) Description 01/21/2021 Orders [facility] [address] [address] Gigi Cronin MD [address] [facility] [address] [place] [address] Social History Tobacco Use Types [...] on file documented as of this encounter Ordered Prescriptions Prescription Sig Dispense Quantity Refills Last Filled Start Date End Date amoxicillin (AMOXIL) 500 mg tablet/capsule Take 1 tablet/caps ule (500 mg total) by mouth 3 (three) times a day for 10 days 30 tablet/capsule 01/21/2021 01/31/2021 documented in this encounter Plan of Treatment Scheduled Procedures Name Priority Associated Diagnoses Date/Ti me COLONOSCOPY Encounter for screening colonoscopy documented as of this encounter Visit Diagnoses Not on filedocumented in this encounter Care Teams Retina Subspecialist Relationship Specialty Start Date End Date Gigi Cronin MD [address] [facility] [address], [place] [address] PCP - General Internal Medicine 09/17/20 documented as of this encounter
--- OUTSIDE RECORDS SUMMARY | 2024-11-27 15:43 | XMS_ITS | Encounter Summary ---
Author Organization [facility] Address [address] [place] [address] Phone Care Team Providers Care Sole Tier Name Role Phone Gigi Cronin MD Primary Care Provider [phone] Reason for Referral * Diagnostic Imaging (Routine) - Closed Specialty Diagnoses / Procedures Referred By Rose saleh Referred To Contact Diagnoses Abnormal mammogram Procedures Diagnostic Mammogram Bilateral W Polo Diagnostic Mammogram Left W Polo Kerri Moyer MD [address] [address] Phone: tel: fax: [address] [phone] Referral ID Status Reason Start Date Expiration Date Visits Re quested Visits Authorized [id number] Closed 05/01/2022 05/31/2023 1 1 Encounter Details Date Type Department Care Team (Late st Contact Info) Description 05/01/2022 Orders Only [facility] [address] [facility] 5th [place] [address] [place] [address] Kerri Moyer MD [address] [id number] Abnormal mammogram (Primary Dx) Social History Tobacco Use Types Packs/Day Years [...] of Binge Drinking Not on file 07/24 Comments Unknown Sex and Gender Information Value Date Recorded Sex Assigned at Not on file Legal Sex Female 11:46 AM CDT Gender Identity Not on file Sexual Orientation Not on file documented as of this encounter Plan of Treatment Scheduled Procedures Name Priority Associated Diagnoses Date/Ti me COLONOSCOPY Encounter for screening colonoscopy documented as of this encounter Results * Diagnostic Mammogram Bilateral W Polo (05/06/2022 2:46 PM CDT) Anatomical Region Laterality Modality Breast Bilateral Mammography 05/06/2022 3:29 PM CDT Impressions 05/06/2022 3:33 PM CDT 1. ??Interval decrease in size of clustered microcysts in LEFT breast, considered benign. ??No further imaging follow-up is required. 2. ??No mammographic evidence of malignancy within EITHER breast. OVERALL FINAL ASSESSMENT: BI-RADS Category 2: Benign. RECOMMENDATION: Return to annual screening mammography. Dictated by: Teja Ovalle M.D. The radiology attending physician has personally reviewed this study, and had reviewed and/or edited this written report and agrees with it. Electronically signed by: Fina Mora M.D. Narrative 05/06/2022 3:33 PM CDT EXAMINATION: BILATERAL DIGITAL DIAGNOSTIC MAMMOGRAM INCLUDING CAD AND BILATERAL DIGITAL BREAST TOMOSYNTHESIS; LEFT BREAST SONOGRAM HISTORY: 57-year-old female here for follow-up of probable cluster of cysts in left breast, initially seen on screening mammogram. COMPARISON: Left breast ultrasound 08/07/2021, 03/27/2021; screening mammogram 02/27/2021 TECHNIQUE: ?? Full field digital mammographic views of BOTH breasts were performed, including computer aided detection (CAD) and BILATERAL digital breast tomosynthesis (DBT). ??Directed ultrasound evaluation of the LEFT breast was performed. BREAST PARENCHYMAL COMPOSITION: The breasts are heterogenously dense, which may obscure small masses. MAMMOGRAM FINDINGS: There has been interval decrease in size of the previously described circumscribed, oval mass in the lower inner LEFT breast. There is no new suspicious abnormality in either breast. ?? SONOGRAM FINDINGS: Within the LEFT breast at 7:00, 3 cm from nipple, again seen is a probable cluster of microcysts , measuring 0.7 x 0.2 x 0.5 cm, previously measuring 0.8 x 0.3 x 0.6 cm. Procedure Note Fina Mora MD - 05/06/2022 EXAMINATION: BILATERAL DIGITAL DIAGNOSTIC MAMMOGRAM INCLUDING CAD AND BILATERAL DIGITAL BREAST TOMOSYNTHESIS; LEFT BREAST SONOGRAM HISTORY: 57-year-old female here for follow-up of probable cluster of cysts in left breast, initially seen on screening mammogram. COMPARISON: Left breast ultrasound 08/07/2021, 03/27/2021; screening mammogram 02/27/2021 TECHNIQUE: Full field digital mammographic views of BOTH breasts were performed, including computer aided detection (CAD) and BILATERAL digital breast tomosynthesis (DBT). Directed ultrasound evaluation of the LEFT breast was performed. BREAST PARENCHYMAL COMPOSITION: The breasts are heterogenously dense, which may obscure small masses. MAMMOGRAM FINDINGS: There has been interval decrease in size of the previously described circumscribed, oval mass in the lower inner LEFT breast. There is no new suspicious abnormality in either breast. SONOGRAM FINDINGS: Within the LEFT breast at 7:00, 3 cm from nipple, again seen is a probable cluster of microcysts , measuring 0.7 x 0.2 x 0.5 cm, previously measuring 0.8 x 0.3 x 0.6 cm. IMPRESSION: 1. Interval decrease in size of clustered microcysts in LEFT breast, considered benign. No further imaging follow-up is required. 2. No mammographic evidence of malignancy within EITHER breast. OVERALL FINAL ASSESSMENT: BI-RADS Category 2: Benign. RECOMMENDATION: Return to annual screening mammography. Dictated by: Teja Ovalle M.D. The radiology attending physician has personally reviewed this study, and had reviewed and/or edited this written report and agrees with it. Electronically signed by: Fina Mora M.D. Kerri Moyer MD IMG MAMMO PROCEDURES Fi nal Result documented in this encounter Visit Diagnoses Diagnosis Abnormal mammogram- Primary Abnormal mammogram, unspecified Abnormal mammogram Abnormal mammogram, unspecified documented in this encounter Care Teams Sole Tier Relationship Specialty Start Date End Date Gigi Cronin MD [address] [facility] [address] [place] [address] PCP - General Internal Medicine 09/17/20 documented as of this encounter
--- OUTSIDE RECORDS SUMMARY | 2024-11-27 15:43 | XMS_ITS | Encounter Summary ---
Author Organization [facility] Healthcare Address [address] [place] [address] Care Team Providers Care Frame Feeder Name Role Phone Gigi Cronin MD Primary Care Provider [phone] Reason for Referral * Diagnostic Imaging (Routine) - Closed Specialty Diagnoses / Procedures Referred By Rose saleh Referred To Contact Diagnoses Abnormal mammogram Procedures Diagnostic Mammogram Bilateral W Polo Diagnostic Mammogram Left W Kerri Kolb MD [address] [address] Phone: tel: fax: [address] [phone] Referral ID Status Reason Start Date Expiration Date Visits Re quested Visits Authorized [id number] Closed 05/01/2022 05/31/2023 1 1 Reason for Visit * Diagnostic Imaging (Routine) - Closed Specialty Diagnoses / Procedures Referred By Rose saleh Referred To Contact Diagnoses Abnormal mammogram Procedures Diagnostic Mammogram Bilateral W Polo Diagnostic Mammogram Left W Kerri Kolb MD [address] [address] Phone: tel: fax: [address] [phone] Referral ID Status Reason Start Date Expiration Date Visits Re quested Visits Authorized [id number] Closed 05/01/2022 05/31/2023 1 1 Encounter Details Date Type Department Care Team (Latest Contact Info) Description 05/06/2022 1:49 PM CDT - 05/06/2022 11:59 PM CDT Hospital Encounter [facility] ([facility]) [address] [place] [address] Abnormal mammogram Discharge Disposition: Discharge to home [...] 3 (three) times a day 90 tablet 02/19/2022 2 rizatriptan TERRITORY SALES EXECUTIVE (MAXALT-TERRITORY SALES EXECUTIVE) 10 mg disintegrating tabletIndications:Mi graine Take 1 tablet (10 mg total) by mouth once as needed for migraine May repeat in 2 hours if unresolved. Do not exceed 30 mg in 24 hours. 9 tablet 1 03/25/2022 3 documented as of this encounter Discharge Disposition Disposition Code Departure Means Destination Discharge to home or self care documented in this encounter Plan of Treatment Scheduled Procedures Name Priority Associated Diagnoses Date/Ti me COLONOSCOPY Encounter for screening colonoscopy documented as of this encounter Procedures Procedure Name Priority Date/Time Associated Diagnosis Comments DIAGNOSTIC MAMMOGRAM BILATERAL W POLO Schedule Routine, Read Routine (OP Routine) 05/06/2022 2:46 PM CDT Abnormal mammogram documented in this encounter Results * Diagnostic Mammogram Bilateral [...] unspecified documented in this encounter Care Teams Frame Feeder Relationship Specialty Start Date End Date Gigi Cronin MD [address] [facility] [address] [place] [address] PCP - General Internal Medicine 09/17/20 documented as of this encounter
--- OUTSIDE RECORDS SUMMARY | 2024-11-27 15:43 | XMS_ITS | Encounter Summary ---
Author Organization [facility] Address [address] [place] [address] Care Team Providers Care Brick Burner Head Name Role Phone Gigi Cronin MD Primary Care Provider [phone] Encounter Details Date Type Department Care Team (Late st Contact Info) Description 03/28/2021 [facility] [address] [facility] [address] [place] [address] Gigi Cronin MD [address] [facility] [address] [place] [address] Social History Tobacco Use Types [...] encounter Miscellaneous Notes * Telephone Encounter - Danielle Quiros MA - 03/28/2021 1:05 PM CDT lmom to call office/mk * Telephone Encounter - Danielle Quiros MA - 03/28/2021 1:05 PM CDT ----- Message from Gigi Cronin MD sent at 03/28/2021 12:02 PM CDT ----- Would recommend follow up with breast specialist documented in this encounter Plan of Treatment Scheduled Procedures Name Priority Associated Diagnoses Date/Ti me COLONOSCOPY Encounter for screening colonoscopy documented as of this encounter Visit Diagnoses Not on filedocumented in this encounter Care Teams Brick Burner Head Relationship Specialty Start Date End Date Gigi Cronin MD [address] [place] [address] PCP - General Internal Medicine 09/17/20 documented as of this encounter
--- OUTSIDE RECORDS SUMMARY | 2024-11-27 15:43 | XMS_ITS | Encounter Summary ---
Author Organization [facility] Address [address] [place] [address] Care Team Providers Care Electrical Equipment Technician Name Role Phone Gigi Cronin MD Primary Care Provider [phone] Reason for Referral * Consultation (Routine) - Closed Specialty Diagnoses / Procedures Referred By Contac t Referred To Contact Surgery / Breast Surgery Diagnoses [place] [address] [place], [place] [id number] Phone: tel: fax: Eleazar Moyer MD [address] [place], [place] [id number] Phone: tel: fax: Referral ID Status Reason Start Date Expiration Date V isits Requested Visits Authorized [id number] Closed Specialty Services Required 04/08/2021 05/08/2022 99 99 Question Answer Is this referral for Breast [facility]? No Please select the performing region: [facility] (All Locations) [[id number]] To provider: ELEAZAR MOYER [[id number]] # of visits: 1 Comments Abnormal ultrasound Encounter Details Date Type Department Care Team (Late st Contact Info) Description 04/08/2021 Orders Only [facility] [address] [facility] [address] [facility] [place] [address] Gigi Cronin MD [address] [address] Abnormal mammogram (Primary Dx) Social History Tobacco [...] Scheduled Procedures Name Priority Associated Diagnoses Date/Ti ny COLONOSCOPY Encounter for screening colonoscopy Scheduled Referrals Name Type Priority Associated Diagnoses Order Schedule Ambulatory referral to Breast Surgery Outpatient Referral Routine Abnormal mammogram Ordered: 04/08/2021 documented as of this encounter Visit Diagnoses Diagnosis Abnormal mammogram- Primary Abnormal mammogram, unspecified documented in this encounter Care Teams Electrical Equipment Technician Relationship Specialty Start Date End Date Gigi Cronin MD [address] [address] PCP - General Internal Medicine 09/17/20 documented as of this encounter
--- OUTSIDE RECORDS SUMMARY | 2024-11-27 15:43 | XMS_ITS | Encounter Summary ---
Author Organization [facility] Healthcare Address [address] [place] [address] Care Team Providers Care Reefer Engineer Name Role Phone Gigi Cronin MD Primary Care Provider [phone] Reason for Visit * Reason Onset Date Comments elective colonoscopy 10/26/2020 Encounter Details Date Type Department Care Team (Late st Contact Info) Description 10/26/2020 Telephone [facility] Specialty Services [address] [place] [phone] Malou Gee, RN elective colonoscopy Social History Tobacco Use Types Packs/Day Years [...] encounter Miscellaneous Notes * Telephone Encounter - Antonio Kirkland - 12/26/2020 10:19 AM CST Left message on patient's voicemail to call back to schedule colonoscopy. L CUTTER * Telephone Encounter - Malou Gee RN - 10/26/2020 8:40 AM STEEL CUTTER Please contact the patient regarding scheduling their upcoming procedure: ??? Sedation Scoring Model: Patient characteristics Score Characteristic Weight Patient requesting MAC? Only if patient brings this up after coversation Patient requesting MAC? 5 Needing to be scheduled with an interventionalist Needing to be scheduled with an interventionalist5 Anti-psychotic Anti-psychotic 5 BMI >45 BMI >45 5 Heart failure Heart failure 5 Oxygen requirement at rest Oxygen requirement at rest 5 Prior failed CS Prior failed CS 5 HIV medications HIV medications 5 Active alcohol use (>4 drinks per day in women, >5 drinks per day in men) Active alcohol use (>4 drinks per day in women, >5 drinks per day in men) 4 BMI >35 BMI >35 4 Arrythmia (controlled) Arrythmia (controlled) 3 OSBALDO OSBALDO 3 Active alcohol use (<4 drinks per day in women, <5 drinks per day in men) Active alcohol use (<4 drinks per day in women, <5 drinks per day in men) 3 Anti-viral use Anti-viral use 2 Anxiolytic (>4 days/week) Anxiolytic 2 Opioid use (>4 days/week) Opioid use 2 Healthy or no medications Healthy or no medications 1 Total Score Score <5 Conscious Sedation Score =5 Monitored Anesthesia Care Please notify patient of scheduling with conscious sedation or monitored anesthesia care Concious sedation: Based on your history, you will be scheduled with sedation provided by the engineer/conductor. This is called concious sedation and is very commonly used. You will be heavily sedated but will be able to communicate. You should not experience discomfort but, in the rare event that you do, more medications can be given. If patient requests to be scheduled with MAC: refer to scoring system, if score less than 5: due to limited availability of those slots, we reserve MAC for those that are higher risk from a sedation standpoint (including those with heart failure, severe COPD, or undergoing complex procedures). If score greater than 5, schedule with MAC If patient still requests to be done with MAC, please make a note of this and schedule with MAC Monitored Anesthesia Care: Based on your history, you will be scheduled with anesthesia provided byan anesthesiologist. ?? Referring provider: Gigi Cronin ??? Anesthesia type MAC ??? BMI at the time of review 30 ??? Location limitations:none ? ? Procedure & diagnosis:screening colonoscopy ??? Is the patient a diabetic:no ??? Bowel prep choice:Nulytely split prep ??? Language preference: icelandic Is an corridor redevelopment manager needed: no ??? Implanted Device no ??? Special Instructions (i.e. needs to be scheduled with an interventionalist) no Thank you so much! Malou Gee RN L CUTTER documented in this encounter Plan of Treatment Scheduled Procedures Name Priority Associated Diagnoses Date/Ti me COLONOSCOPY Encounter for screening colonoscopy documented as of this encounter Visit Diagnoses Not on filedocumented in this encounter Care Teams Reefer Engineer Relationship Specialty Start Date End Date Gigi Cronin MD [address] [address] PCP - General Internal Medicine 09/17/20 documented as of this encounter
--- OUTSIDE RECORDS SUMMARY | 2024-11-27 15:43 | XMS_ITS | Encounter Summary ---
Author Organization [facility] Address [address] [place] [address] Care Team Providers Care Cuffing Machine Operator Name Role Phone Gigi Cronin MD Primary Care Provider [phone] Encounter Details Date Type Department Care Team (Late st Contact Info) Description 01/15/2022 Orders [facility] [address] [facility] [address] [place] [address] Gigi Cronin MD [address] [facility] [address] [place] [address] Social History Tobacco Use Types [...] Refills Last Filled Start Date End Date metroNIDAZOLE (FLAGYL) 500 mg tablet Take 1 tablet (500 mg total) by mouth 3 (three) times a day for 10 days 30 tablet 01/15/2022 01/25/2022 documented in this encounter Plan of Treatment Scheduled Procedures Name Priority Associated Diagnoses Date/Ti sc COLONOSCOPY Encounter for screening colonoscopy documented as of this encounter Visit Diagnoses Not on filedocumented in this encounter Care Teams Cuffing Machine Operator Relationship Specialty Start Date End Date Gigi Cronin MD [address] [facility] [address] [place] [address] PCP - General Internal Medicine 09/17/20 documented as of this encounter
--- OUTSIDE RECORDS SUMMARY | 2024-11-27 15:43 | XMS_ITS | Encounter Summary ---
Author Organization [facility] Address [address] [place] [address] Care Team Providers Care Digital Developer Name Role Phone Gigi Cronin MD Primary Care Provider Encounter Details Date Type Department Care Team (Late st Contact Info) Description 09/26/2020 [facility] [address] [facility] [address] [place] [id number] Gigi Cronin MD [address] [facility] [address] [place] [address] Social History Tobacco Use Types [...] Refills Last Filled Start Date End Date rizatriptan PIG CASTING MACHINE OPERATOR (MAXALT-PIG CASTING MACHINE OPERATOR) 10 mg disintegrating tabletIndications:Mi graine Take 1 tablet (10 mg total) by mouth once as needed for migraine May repeat in 2 hours if unresolved. Do not exceed 30 mg in 24 hours. 9 tablet 1 09/26/2020 1 documented in this encounter Miscellaneous Notes * Telephone Encounter - Danielle Quiros - 09/26/2020 10:59 AM CST Pt aware she will get back to us with what labs CAL TERMINOLOGIST * Telephone Encounter - Danielle Quiros. - 09/26/2020 10:59 AM CST ----- Message from Gigi Cronin MD sent at 09/22/2020 9:06 AM CDT ----- Labs show mildly elevated wbc, etiology unclear, please repeat in 1 month, along with lft to assessstability of alk phos CAL TERMINOLOGIST documented in this encounter Plan of Treatment Scheduled Procedures Name Priority Associated Diagnoses Date/Ti ma COLONOSCOPY Encounter for screening colonoscopy documented as of this encounter Visit Diagnoses Not on filedocumented in this encounter Discontinued Medications Medication Sig Discontinue Reason Start Date End Da te rizatriptan PIG CASTING MACHINE OPERATOR (MAXALT-PIG CASTING MACHINE OPERATOR) 10 mg disintegrating tabletIndications:Migrain e Take 10 mg by mouth once as needed for migraine May repeat in 2 hours if unresolved. Do not exceed 30 mg in 24 hours. Reorder 09/26/2020 documented as of this encounter Care Teams Digital Developer Relationship Specialty Start Date End Date Gigi Cronin MD [address] [address] PCP - General Internal Medicine 09/17/20 documented as of this encounter
--- OUTSIDE RECORDS SUMMARY | 2024-11-27 15:43 | XMS_ITS | Encounter Summary ---
Author Organization [facility] Healthcare Address [address] [place] [address] Care Team Providers Care Desktop Technician Name Role Phone Gigi Cronin MD Primary Care Provider [phone] Reason for Visit * Diagnostic Imaging (Routine) - Closed Specialty Diagnoses / Procedures Referred By Contac t Referred To Contact Diagnoses Abnormal mammogram Procedures US Breast Left Limited US Breast Left Complete Kerri Moyer MD [address] [place] [address] Phone: tel: fax: [address] [address] Referral ID Status Reason Start Date Expiration Date Visits Re quested Visits Authorized [id number] Closed 05/01/2022 05/31/2023 1 1 Encounter Details Date Type Department Care Team (Latest Contact Info) Description 05/06/2022 1:49 PM CDT - 05/06/2022 11:59 PM CDT Hospital Encounter [facility] [address] [place] [address] Abnormal mammogram Discharge Disposition: Discharge to home [...] a day 90 tablet 02/19/2022 2 rizatriptan MODERN GREEK STUDIES PROFESSOR (MAXALT-MODERN GREEK STUDIES PROFESSOR) 10 mg disintegrating tabletIndications:Mi graine Take 1 [...] LIMITED Schedule Routine, Read Routine (OP Routine) 05/06/2022 3:10 PM CDT Abnormal mammogram documented in this encounter Results * US Breast Left Limited (05/06/2022 3:10 PM CDT) Anatomical Region Laterality Modality Breast Left Ultrasound 05/06/2022 3:29 PM CDT Impressions 05/06/2022 3:33 [...] unspecified documented in this encounter Care Teams Desktop Technician Relationship Specialty Start Date End Date Gigi Cronin MD [address] [address] PCP - General Internal Medicine 09/17/20 documented as of this encounter
--- OUTSIDE RECORDS SUMMARY | 2024-11-27 15:43 | XMS_ITS | Encounter Summary ---
Author Organization [facility] Healthcare Address [address] [place] [address] Care Team Providers Care Complex Commercial Litigation Paralegal Name Role Phone Gigi Cronin MD Primary Care Provider [phone] Reason for Referral * Diagnostic Imaging (Routine) - Closed Specialty Diagnoses / Procedures Referred By Rose saleh Referred To Contact Diagnoses Other screening mammogram Procedures Screening Mammogram Bilateral W Gigi Price MD [address] [address] Phone: tel: fax: [address] [address] Referral ID Status Reason Start Date Expiration Date Visits Re quested Visits Authorized [id number] Closed 09/19/2020 10/19/2021 1 1 Reason for Visit * Diagnostic Imaging (Routine) - Closed Specialty Diagnoses / Procedures Referred By Rose saleh Referred To Contact Diagnoses Other screening mammogram Procedures Screening Mammogram Bilateral W Gigi Price MD [address] [address] Phone: tel: fax: [address] [address] Referral ID Status Reason Start Date Expiration Date Visits Re quested Visits Authorized [id number] Closed 09/19/2020 10/19/2021 1 1 Encounter Details Date Type Department Care Team (Latest Contact Info) Description 02/27/2021 10:00 AM CDT - 02/27/2021 11:59 PM CDT Hospital Encounter [facility] [address] [place] [address] Gigi Cronin MD [address] [facility] [address] [place] [address] Other screening mammogram Discharge Disposition: Discharge to home or [...] a day 90 tablet 11/26/2020 1 rizatriptan INSPECTOR METAL CAN (MAXALT-INSPECTOR METAL CAN) 10 mg disintegrating tabletIndications:Mi graine Take 1 [...] POLO Schedule Routine, Read Routine (OP Routine) 02/27/2021 10:23 AM CDT Other screening mammogram documented in this encounter Results * Screening Mammogram Bilateral W [place] (02/27/2021 10:23 AM CDT) Anatomical Region Laterality Modality Breast Bilateral Mammography Narrative 03/05/2021 5:27 PM CDT Mammogram Technique: Bilateral Digital Breast Tomosynthesis, Bilateral C-view 2D Screening mammogram. ??Views obtained: ??bilateral craniocaudal and bilateral mediolateral oblique. ??Computer Aided Detection was performed. Mammogram Findings: The present examination has been compared to a prior imaging study performed at [facility]. ??[facility] [place] on 12/10/2011. The breasts are heterogeneously dense, which may obscure small masses. There is a round mass measuring 7 millimeters in the anterior lower inner quadrant of the left breast. There is no suspicious abnormality in the right breast. Impression: Mass in the left breast requires additional evaluation. An ultrasound exam is recommended. OVERALL FINAL ASSESSMENT: BI-RADS CATEGORY 0: ??Incomplete: ??Need additional imaging evaluation. Procedure Note Lara Patricia MD - 03/05/2021 Mammogram Technique: Bilateral Digital Breast Tomosynthesis, Bilateral C-view 2D Screening mammogram. Views obtained: bilateral craniocaudal and bilateral mediolateral oblique. Computer Aided Detection was performed. Mammogram Findings: The present examination has been compared to a prior imaging study performed at [facility]. [facility] [place] on 12/10/2011. The breasts are heterogeneously dense, which may obscure small masses. There is a round mass measuring 7 millimeters in the anterior lowerinner quadrant of the left breast. There is no suspicious abnormality in the right breast. Impression: Mass in the left breast requires additional evaluation. An ultrasoundexam is recommended. OVERALL FINAL ASSESSMENT: BI-RADS CATEGORY 0: Incomplete: Need additional imaging evaluation. us Gigi Cronin MD IMG MAMMO PROCEDURES Final Re sult documented in this encounter Visit Diagnoses Diagnosis Other screening mammogram documented in this encounter Care Teams Complex Commercial Litigation Paralegal Relationship Specialty Start Date End Date Gigi Cronin MD [address] [place] [address] PCP - General Internal Medicine 09/17/20 documented as of this encounter
--- OUTSIDE RECORDS SUMMARY | 2024-11-27 15:43 | XMS_ITS | Encounter Summary ---
Author Organization [facility] Address [address] [place] [address] Care Team Providers Care Airveyor Operator Name Role Phone Gigi Cronin MD Primary Care Provider [phone] Reason for Referral * Diagnostic Imaging (Routine) - Closed Specialty Diagnoses / Procedures Referred By Contac t Referred To Contact Diagnoses Other screening mammogram Procedures Screening Mammogram Bilateral W Gigi Price MD [address] [facility] [address], [place] [address] Phone: tel: fax: [address] [address] Referral ID Status Reason Start Date Expiration Date Visits Re quested Visits Authorized [id number] Closed 09/19/2020 10/19/2021 1 1 Reason for Visit * Reason Comments New Patient Encounter Details Date Type Department Care Team (Late st Contact Info) Description 09/19/2020 12:15 PM CDT Office Visit [facility] [address] [facility] [address] [place] [facility] [place] [id number] Gigi Cronin MD [address] [facility] [address] [place] [address] Other screening mammogram (Primary Dx); Screening, lipid; Encounter for screening colonoscopy; Routine general medical examination at a health care facility; Infected sebaceous cyst Social History Tobacco Use Types Packs/Day Years [...] Sign Reading Time Taken Comments Blood Pressure 150/92 09/19/2020 11:19 AM CDT Pulse 75 09/19/2020 11:19 AM CDT Temperature - - Respiratory Rate - - Oxygen Saturation - - Inhaled Oxygen Concentration - - Weight 93.4 kg (206 lb) 09/19/2020 11:19 AM CDT Height 175.3 cm (5' 9 ) 09/19/2020 11:19 AM CDT Body Mass Index 30.42 09/19/2020 11:19 AM CDT documented in this encounter Ordered Prescriptions Prescription Sig Dispense Quantity Refills Last Filled Start Date End Date sulfamethoxazole-t rimethoprim (BACTRIM DS) 800-160 mg per tablet Take 1 tablet by mouth 2 (two) times a day for 10 days 20 tablet 09/19/2020 09/28/2020 documented in this encounter Progress Notes * Gigi Cronin MD - 09/19/2020 12:15 PM CDT Images from the original note were not included. Subjective/Objective Patient ID: Mari Mccullough is a 55 y.o. female. Chief Complaint New Patient HPI Patient here today for evaluation of her medical problems. She generally is in good health. She does have a cyst which has become inflamed on her left flank. Otherwise she is doing well. She continues to smoke a pack a day and has been counseled against this today. History reviewed. No pertinent surgical history. Family History Problem Relation Age of Onset ??? Heart disease Father Social History Tobacco Use ??? Smoking status: Current Every Day Smoker Packs/day: 1.00 Types: Cigarettes Substance Use Topics ??? Alcohol use: Yes ??? Drug use: Not on file Current Outpatient Medications Medication Sig ??? rizatriptan DENTAL INSTRUMENT MAKER (MAXALT-DENTAL INSTRUMENT MAKER) 10 mg disintegrating tablet Take 10 mg by mouth once as needed formigraine May repeat in 2 hours if unresolved. Do not exceed 30 mg in 24 hours. ??? ALPRAZolam (XANAX) 0.25 mg tablet Take 0.25 mg by mouth 3 (three) times a day Review of Systems Constitutional: Negative for appetite [...] joint swelling. Skin: Negative for rash. Neurological: Negative for dizziness, weakness and headaches. Hematological: Negative for adenopathy. Does not bruise/bleed easily. Psychiatric/Behavioral: Negative for dysphoric mood. The patient is not nervous/anxious. Breast: Negative for tenderness and lump(s). Patient Vital Signs for the past 24 hrs: BP Pulse Height Weight 09/19/20 1119 150/92 75 175.3 cm (5' 9 ) 93.4 kg (206 lb) Physical Exam Vitals signs and nursing note reviewed. Constitutional: General: She [...] are equal, round, and reactive to light. Neck: Musculoskeletal: No neck rigidity. Cardiovascular: Rate and Rhythm: Normal rate and regular rhythm. Pulses: Normal pulses. Heart sounds: Normal heart sounds. No murmur. No gallop. Pulmonary: Effort: Pulmonary effort is normal. Breath sounds: Normal breath sounds. No wheezing, rhonchi or rales. Abdominal: General: Abdomen is flat. Bowel sounds are normal. Palpations: Abdomen is soft. There is no mass. Tenderness: There is no abdominal tenderness. There is no guarding. Hernia: No hernia is present. Musculoskeletal: Normal range of motion. General: No swelling, tenderness or deformity. Right lower leg: No edema. Left lower [...] Diagnoses and all orders for this visit: Other screening mammogram (Z12.31) (Primary) - Screening Mammogram Bilateral W [place]; Future Screening, lipid (Z13.220) - POCT glucose - POCT lipid panel Encounter for screening colonoscopy (Z12.11) - Direct Scheduling Case Request: COLONOSCOPY Labs No results found for: HGBA1C No results found for: POCCHOL, POCHDL, POCTRIG, POCLDL, POCNONHDL No results found for: COLORU, CLARITYU, GLUCOSEUR, BILIRUBINUR, KETONESU, SPECGRAVU, BLOODUR, CONCEPCION, PROTUR, UROBILINOGEN, POCURNITRITE, LEUKOCYTESU, LOTNUMBER documented in this encounter Plan of Treatment Scheduled Procedures Name Priority Associated Diagnoses Date/Ti wa COLONOSCOPY Encounter for screening colonoscopy documented as of this encounter Procedures Procedure Name Priority Date/Time Associated Diagnosis Comments MICROSCOPIC EXAMINATION Routine 09/19/2020 1:02 PM CDT URINALYSIS AND REFLEX TO MICROSCOPIC AND CULTURE Routine 09/19/2020 1:02 PM CDT Routine general medical examination at a health care facility CBC WITH AUTO DIFFERENTIAL Routine 09/19/2020 1:02 PM CDT Routine general medical examination at a health care facility TSH Routine 09/19/2020 1:02 PM CDT Routine general medical examination at a health care facility COMPREHENSIVE METABOLIC PANEL Routine 09/19/2020 1:02 PM CDT Routine general medical examination at a health care facility documented in this encounter Results * Screening [...] to a prior imaging study performed at [facility]. [facility] on 12/10/2011. The breasts are heterogeneously dense, [...] to a prior imaging study performed at [facility]. [facility] on 12/10/2011. The breasts are heterogeneously dense, [...] MD IMG MAMMO PROCEDURES Final Re sult * (ABNORMAL) Microscopic Examination (09/19/2020 1:02 PM CDT) WBC, ur 0-5 0 - 5 /hpf [facility] - 01 RBC, ur 0-2 0 - 2 /hpf [facility] - 01 Epithelial cells, non-renal, ur 0-10 0 - 10 /hpf [facility] - 01 Casts Present(A) None seen /lpf [facility] - 01 Cast Type Hyaline casts N/A [facility] - 01 Crystals, ur Present(A) N/A [facility] - 01 Crystals, type Calcium Oxalate N/A [facility] - 01 Mucous Threads Present Not Estab. [facility] - 01 Bacteria, ur Few None seen/Few [facility] - 01 09/19/2020 1:02 PM CDT 09/19/2020 Narrative [facility] - 09/20/2020 7:08 AM CDT Performed at: ?? - [facility] ??[id number] Kick Press Setter: Too Peraza PhD, Phone: ??[phone] Gigi Cronin MD LAB BLOOD ORDERABLES Final Re sult Performing Organization Address [facility] de Phone Number [facility] * TSH (09/19/2020 1:02 PM CDT) TSH 0.911 0.450 - 4.500 uIU/mL [facility] - 01 Blood specimen (specimen) 09/19/2020 1:02 PM CDT 09/19/2020 Narrative [facility] - 09/20/2020 7:08 AM CDT Performed at: ?? [address] ??[id number] Kick Press Setter: Too Peraza PhD, Phone: ??[phone] us Gigi Cronin MD LAB BLOOD ORDERABLES Final Re sult Performing Organization Address [facility] de Phone Number [facility] - * (ABNORMAL) Urinalysis reflex to microscopic and culture Urine (09/19/2020 1:02 PM CDT) Pathologist [facility] Specific [place] 1.027 1.005 - 1.030 [facility] - 01 pH, ur 5.5 5.0 - 7.5 [facility] - 01 Color, ur Yellow Yellow [facility] - 01 Appearance, ur Clear Clear [facility] - 01 Leukocyte esterase, ur Negative Negative [facility] - 01 Protein, ur Trace Negative/Tra ce [facility] - 01 Glucose, ur Negative Negative [facility] - 01 Ketones, ur Trace(A) Negative [facility] - 01 Blood, ur Negative Negative [facility] - 01 Bilirubin, ur Negative Negative [facility] - 01 Urobilinogen, quant, ur 1.0 0.2 - 1.0 mg/dL [facility] - 01 Nitrites, ur Negative Negative [facility] - 01 Urinalysis, microscopic exam Comment [facility] - 01 Comment:Microscopic follows if indicated. Urinalysis, microscopic exam See below: [facility] - 01 Comment:Microscopic was luis cated and was performed. Urinalysis Comment [facility] - 01 Comment:This specimen will n ot reflex to a Urine Culture. Urine 09/19/2020 1:02 PM CDT 09/19/2020 Narrative [facility] - 09/20/2020 7:08 AM CDT Performed at: ??01 - [facility] [address] ??[id number] Kick Press Setter: Too Peraza PhD, Phone: ??[phone] us Gigi Cronin MD LAB MICROBIOLOGY - GENERAL OR DERABLES Final Result [facility] - 01 * (ABNORMAL) Comprehensive metabolic panel (09/19/2020 1:02 PM CDT) Pathologist [facility] Glucose 90 65 - 99 mg/dL [facility] - 01 BUN 15 6 - 24 mg/dL [facility] - 01 Creatinine, Serum 0.99 0.57 - 1.00 mg/dL [facility] - 01 eGFR If NonAfricn Am 65 >59 mL/min/1.7 3 [facility] - 01 eGFR If Africn Am 75 >59 mL/min/1.7 3 [facility] - 01 BUN/creat ratio 15 9 - 23 [facility] - 01 Sodium 144 134 - 144 mmol/L [facility] - 01 Potassium, sr 4.4 3.5 - 5.2 mmol/L [facility] - 01 Chloride 106 96 - 106 mmol/L [facility] - 01 CO2 24 20 - 29 mmol/L [facility] - 01 Calcium 10.1 8.7 - 10.2 mg/dL [facility] - 01 Protein, sr 6.5 6.0 - 8.5 g/dL [facility] - 01 Albumin 4.3 3.8 - 4.9 g/dL [facility] - 01 Globulin, Total 2.2 1.5 - 4.5 g/dL [facility] - 01 A/G Ratio 2.0 1.2 - 2.2 [facility] - 01 Bilirubin, Total 0.4 0.0 - 1.2 mg/dL [facility] - 01 Alk phos 121(H) 39 - 117 IU/L [facility] - 01 AST 13 0 - 40 IU/L [facility] - 01 ALT 14 0 - 32 IU/L [facility] - 01 Blood specimen (specimen) 09/19/2020 1:02 PM CDT 09/19/2020 Narrative [facility] - 09/20/2020 7:08 AM CDT Performed at: ??01 - [facility] [address] ??[id number] Kick Press Setter: Too Peraza PhD, Phone: ??[phone] us Gigi Cronin MD LAB BLOOD ORDERABLES Final Re sult [facility] - 01 * (ABNORMAL) CBC with auto differential (09/19/2020 1:02 PM CDT) WBC 12.5(H) 3.4 - 10.8 x10E3/uL [facility] - 01 RBC 4.58 3.77 - 5.28 x10E6/uL [facility] - 01 Hgb 15.9 11.1 - 15.9 g/dL [facility] - 01 Hct 44.8 34.0 - 46.6 % [facility] - 01 MCV 98(H) 79 - 97 fL [facility] - 01 MCH 34.7(H) 26.6 - 33.0 pg [facility] - 01 MCHC 35.5 31.5 - 35.7 g/dL [facility] - 01 Rdw 12.3 11.7 - 15.4 % [facility] - 01 Platelets 263 150 - 450 x10E3/uL [facility] - 01 Neutrophils pct 74 Not Estab. % [facility] - 01 Lymphs pct 16 Not Estab. % [facility] - 01 Monocytes pct 7 Not Estab. % [facility] - 01 Eosinophils pct 1 Not Estab. % [facility] - 01 Basophil pct 1 Not Estab. % [facility] - 01 Neutrophil abs 9.3(H) 1.4 - 7.0 x10E3/uL [facility] - 01 Lymphs (Absolute) 2.0 0.7 - 3.1 x10E3/uL [facility] - 01 Monocyte abs 0.9 0.1 - 0.9 x10E3/uL [facility] - 01 Eosinophils, abs 0.1 0.0 - 0.4 x10E3/uL [facility] - 01 Basophils, abs 0.1 0.0 - 0.2 x10E3/uL [facility] - 01 Immature Granulocytes 1 Not Estab. % [facility] - 01 Immature Grans (Abs) 0.1 0.0 - 0.1 x10E3/uL [facility] - 01 Blood specimen (specimen) 09/19/2020 1:02 PM CDT 09/19/2020 Narrative [facility] - 09/20/2020 7:08 AM CDT Performed at: ??01 - [facility] [address] ??[id number] Kick Press Setter: Too Peraza PhD, Phone: ??[phone] us Gigi Cronin MD LAB BLOOD ORDERABLES Final Re sult [facility] - 01 documented in this encounter Visit Diagnoses Diagnosis Other screening mammogram- Primary Screening, lipid Encounter for screening colonoscopy Routine general medical examination at a health care facility Infected sebaceous cyst Sebaceous cyst Other screening mammogram documented in this encounter Historical Medications * This list may reflect changes made after this encounter. rizatriptan DENTAL INSTRUMENT MAKER (MAXALT-DENTAL INSTRUMENT MAKER) 10 mg disintegrating tabletIndications:Mi graine Take 10 mg by mouth once as needed for migraine May repeat in 2 hours if unresolved. Do not exceed 30 mg in 24 hours. 0 ALPRAZolam (XANAX) 0.25 mg tablet Take 0.25 mg by mouth 3 (three) times a day 09/04/2020 1 added in this encounter Orders Case Request Count Last Ordered Date First Orde red Date GI DIRECT ACCESS CASE REQUEST 1 09/19/2020 documented in this encounter Care Teams Airveyor Operator Relationship Specialty Start Date End Date Gigi Cronin MD [id number] [place] [address] PCP - General Internal Medicine 09/17/20 documented as of this encounter
--- OUTSIDE RECORDS SUMMARY | 2024-11-27 15:43 | XMS_ITS | Encounter Summary ---
Author Organization [facility] Address [address] [place] [address] Care Team Providers Care Tree Care Foreman Name Role Phone Gigi Cronin MD Primary Care Provider [phone] Encounter Details Date Type Department Care Team (Late st Contact Info) Description 04/09/2021 [facility] [address] [facility] [address] [place] [address] Gigi Cronin MD [address] [facility] [address] [place] [address] Social History Tobacco Use Types [...] Telephone Encounter - Danielle Quiros MA - 04/09/2021 4:23 PM CDT Pt aware sent referral * Telephone Encounter - Danielle Quiros MA - 04/09/2021 4:23 PM CDT ----- Message from Gigi Cronin MD sent at 03/28/2021 12:02 PM CDT ----- Would recommend follow up with breast specialist documented in this encounter Plan of Treatment Scheduled Procedures Name Priority Associated Diagnoses Date/Ti md COLONOSCOPY Encounter for screening colonoscopy documented as of this encounter Visit Diagnoses Not on filedocumented in this encounter Care Teams Tree Care Foreman Relationship Specialty Start Date End Date Gigi Cronin MD [address] [address] PCP - General Internal Medicine 09/17/20 documented as of this encounter
--- OUTSIDE RECORDS SUMMARY | 2024-11-27 15:43 | XMS_ITS | Encounter Summary ---
Author Organization [facility] Address [address] [place] [address] Care Team Providers Care Hot Worker Name Role Phone Gigi Cronin MD Primary Care Provider [phone] Encounter Details Date Type Department Care Team (Late st Contact Info) Description 05/07/2022 Orders [facility] [address] [facility] [address] [place] [id number] Gigi Cronin MD [address] [facility] [address] [place] [address] Social History Tobacco Use Types [...] Refills Last Filled Start Date End Date azithromycin (ZITHROMAX) 250 mg tablet Take 2 tabs (500 mg) by mouth today, than 1 tab (250 mg) daily for 4 days. 6 tablet 05/07/2022 05/12/2022 documented in this encounter Plan of Treatment Scheduled Procedures Name Priority Associated Diagnoses Date/Ti al COLONOSCOPY Encounter for screening colonoscopy documented as of this encounter Visit Diagnoses Not on filedocumented in this encounter Care Teams Hot Worker Relationship Specialty Start Date End Date Gigi Cronin MD [address] [facility] [address] [place] [address] PCP - General Internal Medicine 09/17/20 documented as of this encounter
--- OUTSIDE RECORDS SUMMARY | 2024-11-27 15:43 | XMS_ITS | Encounter Summary ---
Author Organization [facility] Address [address] [place] [address] Phone Care Team Providers Care Compressed Gas Tester Name Role Phone Gigi Cronin MD Primary Care Provider [phone] Reason for Visit * Reason Comments Initial Consult * Consultation (Routine) - Closed Specialty Diagnoses / Procedures Referred By Rose saleh Referred To Contact Surgery / Breast Surgery Diagnoses Abnormal mammogram Gigi Cronin MD [address] [facility] [address] [place] [address] Phone: tel: fax: Kerri Moyer MD [facility] [address] [place] [address] Phone: tel: fax: Referral ID Status Reason Start Date Expiration Date V isits Requested Visits Authorized [id number] Closed Specialty Services Required 04/08/2021 05/08/2022 99 99 Encounter Details Date Type Department Care Team (Late st Contact Info) Description 08/07/2021 9:30 AM CDT Office Visit [facility] Surgery [address] [place] [address] 5th [place] [address] [place] [id number] Paige Goodrich NP [address] [place] [address] Abnormal mammogram (Primary Dx) Social History Tobacco [...] Sign Reading Time Taken Comments Blood Pressure - - Pulse - - Temperature - - Respiratory Rate - - Oxygen Saturation - - Inhaled Oxygen Concentration - - Weight 81.6 kg (180 lb) 08/07/2021 9:33 AM CDT Height 175.3 cm (5' 9 ) 08/07/2021 9:33 AM CDT Body Mass Index 26.58 08/07/2021 9:33 AM CDT documented in this encounter Progress Notes * Paige Goodrich NP - 08/07/2021 9:30 AM CDT NAME: Yesika Mccullough : 1965 DATE: 08/07/2021 REFERRING MD: Ggii Cronin MD CHIEF COMPLAINT: Evaluation of left abnormal mammogram. HISTORY OF PRESENT ILLNESS: Yesika Mccullough is a 56 y.o. woman referred by Gigi Cronin MD who requested that I evaluate her for her left abnormal mammogram. The patient states that she was undergoing her routine mammogram when she was alerted to an abnormality. She underwent additional imaging and ultimately was recommended to undergo short interval follow-up with repeat diagnostic imaging 6 months later. She presents today for this reason. The patient states that she herself has not noticed any abnormal masses in either breast. She denies any change in the appearance of her breasts or the skin of her breasts. She denies bilateral nipple discharge. She has no other systemic complaints and otherwise feels well today. This is a pleasant 56 y.o. woman who underwent menarche at 17 years of age. She has not been . She underwent natural menopause in her early 50's. She has never been on hormone replacement therapy. She used oral contraception for about 10 years in the past. She has undergone 1 previous breast biopsies approximately 20 years ago and was told that it was benign. She has not had any breast surgeries. She denies family history of breast or ovarian cancer. Past Medical History: Diagnosis Date ??? Headache Past Surgical History: Procedure Laterality Date ??? BREAST BIOPSY Benign HOME MEDICATIONS : ALPRAZolam (XANAX) 0.25 mg tablet rizatriptan TRASH MAN (MAXALT-TRASH MAN) 10 mg disintegrating tablet No Known Allergies Social History Socioeconomic History ??? Marital status: Spouse name: Not on file ??? Number of children: Not on file ??? Years of education: Not on file ??? Highest education level: Not on file Occupational History ??? Not on file Tobacco Use ??? Smoking status: Current Every Day Smoker Packs/day: 1.00 Types: Cigarettes Substance and Sexual Activity ??? Alcohol use: Yes ??? Drug use: Not on file ??? Sexual activity: Not on file Other Topics Concern ??? Not on file Social History Narrative ??? Not on file Social Determinants of Health Financial Resource Strain: ??? Difficulty of Paying Living Expenses: Not on file Food Insecurity: ??? Worried About Running Out of Food in the Last Year: Not on file ??? Ran Out of Food in the Last Year: Not on file Transportation Needs: ??? Lack of Transportation (Medical): Not on file ??? Lack of Transportation (Non-Medical): Not on file Physical Activity: ??? Days of Exercise per Week: Not on file ??? Minutes of Exercise per Session: Not on file Stress: ??? Feeling of Stress : Not on file Social Connections: ??? Frequency of Communication with Friends and Family: Not on file ??? Frequency of Social Gatherings with Friends and Family: Not on file ??? Attends Uatsdin Services: Not on file ??? Active Member of Clubs or Organizations: Not on file ??? Attends Club or Organization Meetings: Not on file ??? Marital Status: Not on file Intimate Partner Violence: ??? Fear of Current or Ex-Partner: Not on file ??? Emotionally Abused: Not on file ??? Physically Abused: Not on file ??? Sexually Abused: Not on file Family History Problem Relation Age of Onset ??? Heart disease Father The patient's review of systems were reviewed as per the chart today and no other findings were noted. The patient's past medical history, social history, and family history are listed on their questionnaire and has been reviewed and can be found in the chart. PHYSICAL EXAMINATION: GENERAL: She is a well-developed, well-nourished woman in no acute distress. HEENT: Within normal limits. NECK: Neck is supple without lymphadenopathy or thyromegaly. LUNGS: Clear. HEART: Regular. ABDOMEN: Soft without organomegaly. EXTREMITIES: Warm without edema. NEUROLOGICAL: She is alert and oriented x 3. BREAST EXAMINATION: Bilateral breast examination reveals normal ptotic breasts bilaterally. Both breasts are without any dominant masses, skin changes, nipple discharge, or axillary adenopathy. IMAGING: I personally reviewed all of the imaging performed. On 02/27/2021 she underwent a bilateral screening mammogram at our institution. It was given a BI- RADS category 0 due to a mass in the lowerinner left breast. There were no suspicious abnormalities detected in the right breast. On 03/27/2021he underwent a left breast ultrasound, which was given a BI-RADS category 3, probably benign due to an a 0.8 cm x 0.3 cm x 0.6 area of clustered microcysts at the 7 o'clock position 3 cm from the nipple, which correlated with the area of concern on her recent mammogram. 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 She recommended to return for a left breast ultrasound 6 months later. Today she underwent a left breast ultrasound, which I personally reviewed. She is given a BI-RADS category 3, probably benign: EXAMINATION: LEFT BREAST ULTRASOUND ?? HISTORY: Short-term interval follow-up ?? COMPARISON: 02/27/2021, 03/27/2021 ?? TECHNIQUE: Directed ultrasound evaluation of the LEFT breast was performed. ?? ULTRASOUND FINDINGS: At the 7 o'clock position of the left breast, 3 cm from the nipple, there is a cluster of microcysts measuring 7 x 4 x 5 mm. This is unchanged from prior exam and is probably benign. ?? IMPRESSION: Cluster of microcysts in the 7 o'clock position of the left breast is probably benign. Recommend follow-up and on ultrasound in February 2022. ?? OVERALL FINAL ASSESSMENT: BI-RADS Category 3: Probably Benign. ?? RECOMMENDATION: Recommend follow-up ultrasound and mammogram in February 2022. ?? Electronically signed by: Paradise Lynch M.D. IMPRESSION/RECOMMENDATION: Yesika Mccullough is a 56 y.o. woman who presents today for a consultation regarding her left abnormal mammogram. I reviewed the clinical and imaging findings with her today. I reassured her that based on my clinical examination and review of her diagnostic imaging, there are no abnormalities that require biopsy at this time. We discussed that the area of concern in the left breast is probably benign, and is consistent with a cluster of microcysts. We would recommend that she return in approximately 6 months for a repeat left breast ultrasound. She will also be due forbilateral mammograms at that time. I encouraged her to resume breast self examinations on a monthlybasis and alert me of any abnormalities. I answered all of her questions today and she does seem pleased with this plan of approach. I encouraged her to contact me if any new questions or concerns arise. Paige Goodrich NP Portions of this note were dictated using [employer] Direct speech recognition software. Please excuse any jet operator errors. documented in this encounter Plan of Treatment Scheduled Procedures Name Priority Associated Diagnoses Date/Ti me COLONOSCOPY Encounter for screening colonoscopy Scheduled Referrals Name Type Priority Associated Diagnoses Order Schedule Ambulatory referral to Breast Surgery Outpatient Referral Routine Abnormal mammogram Ordered: 04/08/2021 documented as of this encounter Visit Diagnoses Diagnosis Abnormal mammogram- Primary Abnormal mammogram, unspecified documented in this encounter Care Teams Compressed Gas Tester Relationship Specialty Start Date End Date Gigi Cronin MD [address] [address] PCP - General Internal Medicine 09/17/20 documented as of this encounter
--- OUTSIDE RECORDS SUMMARY | 2024-11-27 15:43 | XMS_ITS | Encounter Summary ---
Author Organization [facility] Address [address] [place] [address] Care Team Providers Care Wet Trimmer Name Role Phone Gigi Cronin MD Primary Care Provider [phone] Encounter Details Date Type Department Care Team (Late st Contact Info) Description 09/27/2020 Orders [facility] [address] [facility] [address] [place] [id number] Scanning, Provider Social History Tobacco Use Types Packs/Day Years [...] Priority Date/Time Associated Diagnosis Comments SCAN - OTHER ORDERS 09/27/2020 7:47 AM HELIOTHERAPIST documented in this encounter Results * SCAN - OTHER ORDERS (09/27/2020 7:47 AM HELIOTHERAPIST) us Provider Scanning Final Result documented in this encounter Visit Diagnoses Not on filedocumented in this encounter Care Teams Wet Trimmer Relationship Specialty Start Date End Date Gigi Cronin MD [address] [facility] [address] [place], [place] [id number] PCP - General Internal Medicine 09/17/20 documented as of this encounter
--- OUTSIDE RECORDS SUMMARY | 2024-11-27 15:43 | XMS_ITS | Encounter Summary ---
Author Organization [facility] Healthcare Address [address] [place] [address] Care Team Providers Care Training Manager Name Role Phone Gigi Cronin MD Primary Care Provider [phone] Encounter Details Date Type Department Care Team (Latest Contact Info) Description 03/05/2021 1:41 PM CDT - 03/05/2021 11:59 PM CDT Hospital Encounter [facility] [address] [place] [address] Discharge Disposition: Discharge to home or self [...] a day 90 tablet 11/26/2020 1 rizatriptan MANAGER TECHNICAL SERVICES (MAXALT-MANAGER TECHNICAL SERVICES) 10 mg disintegrating tabletIndications:Mi graine Take 1 [...] Procedure Name Priority Date/Time Associated Diagnosis Comments BREAST IMAGING OUTSIDE REFERENCE Schedule Routine, Read Routine (OP Routine) 03/05/2021 1:41 PM CDT Other screening mammogram documented in this encounter Results * Breast Imaging Outside Reference (03/05/2021 1:41 PM CDT) Impressions [facility]_M[facility]MO[facility] - 03/05/2021 1:41 PM CDT These images are for Reference purposes only and have not been reviewed by [facility] Radiology. ??There will be no report generated by a [facility] Radiologist. Narrative [facility]_MAMMO[facility] - 03/05/2021 1:41 PM CDT EXAMINATION: ??Images For Reference Purposes Only us Self Referral IMG MAMMO PROCEDURES Final Resul t [facility] documented in this encounter Visit Diagnoses Not on filedocumented in this encounter Care Teams Training Manager Relationship Specialty Start Date End Date Gigi Cronin MD [address] [place] [address] PCP - General Internal Medicine 09/17/20 documented as of this encounter
--- OUTSIDE RECORDS SUMMARY | 2024-11-27 15:43 | XMS_ITS | Encounter Summary ---
Author Organization [facility] Address [address] [place] [address] Care Team Providers Care Field Marketing Specialist Name Role Phone Gigi Cronin MD Primary Care Provider [phone] Encounter Details Date Type Department Care Team (Late st Contact Info) Description 08/19/2023 [facility] [address] [facility] [address] [facility] [place] [id number] Alannah Jules, CAD ENGINEER [address] [facility] [address] [place] [address] Social History Tobacco Use Types [...] Refills Last Filled Start Date End Date ergocalciferol (VITAMIN D) 50,000 unit capsule Take 1 capsule (50,000 Units total) by mouth once a week 13 capsule 3 08/19/2023 4 documented in this encounter Plan of Treatment Scheduled Procedures Name Priority Associated Diagnoses Date/Ti or COLONOSCOPY Encounter for screening colonoscopy documented as of this encounter Visit Diagnoses Not on filedocumented in this encounter Care Teams Field Marketing Specialist Relationship Specialty Start Date End Date Gigi Cronin MD [address] [address] PCP - General Internal Medicine 09/17/20 documented as of this encounter
--- OUTSIDE RECORDS SUMMARY | 2024-11-27 15:43 | XMS_ITS | Encounter Summary ---
Author Organization [facility] Healthcare Address [address] [place] [address] Care Team Providers Care Scientist Propagator Name Role Phone Gigi Cronin MD Primary Care Provider [phone] Encounter Details Date Type Department Care Team (Late st Contact Info) Description 03/26/2021 Telephone [facility] Advanced Medicine Breast Imaging [facility] ([facility]) [address] [place] [address] Deana Padgett RT Social History Tobacco Use Types Packs/Day Years [...] encounter Miscellaneous Notes * Telephone Encounter - Deana Padgett RT - 03/26/2021 1:16 PM CDT Spoke with patient about COVID 19 guidelines and appt - sxf documented in this encounter Plan of Treatment Scheduled Procedures Name Priority Associated Diagnoses Date/Ti me COLONOSCOPY Encounter for screening colonoscopy documented as of this encounter Visit Diagnoses Not on filedocumented in this encounter Care Teams Scientist Propagator Relationship Specialty Start Date End Date Gigi Cronin MD [facility] [address] [place] [address] PCP - General Internal Medicine 09/17/20 documented as of this encounter
--- OUTSIDE RECORDS SUMMARY | 2024-11-27 15:43 | XMS_ITS | Encounter Summary ---
Author Organization [facility] Address [address] [place] [address] Phone Care Team Providers Care Laborer Pipelines Name Role Phone Gigi Cronin MD Primary Care Provider [phone] Encounter Details Date Type Department Care Team (Late st Contact Info) Description 08/07/2021 Orders Only [facility] Surgery [address] [facility] Advanced Medicine 5th [place] [address] [place] [address] Paige Goodrich, RECEIVER SETTER [address] [place] [address] Abnormal mammogram (Primary Dx) Social History Tobacco [...] unspecified documented in this encounter Care Teams Laborer Pipelines Relationship Specialty Start Date End Date Gigi Cronin MD [address] [address] PCP - General Internal Medicine 09/17/20 documented as of this encounter
--- OUTSIDE RECORDS SUMMARY | 2024-11-27 15:43 | XMS_ITS | Encounter Summary ---
Author Organization [facility] Healthcare Address [address] [place] [address] Care Team Providers Care Melter Caster Name Role Phone Gigi Cronin MD Primary Care Provider [phone] Reason for Referral * Diagnostic Imaging (Routine) - Closed Specialty Diagnoses / Procedures Referred By Rose saleh Referred To Contact Diagnoses Abnormal mammography Procedures US Breast Left Limited Paige Goodrich NP Phone: tel: fax: [address] [address] Referral ID Status Reason Start Date Expiration Date Visits Re quested Visits Authorized [id number] Closed 05/10/2021 06/09/2022 1 1 Reason for Visit * Diagnostic Imaging (Routine) - Closed Specialty Diagnoses / Procedures Referred By Rose saleh Referred To Contact Diagnoses Abnormal mammography Procedures US Breast Left Limited Paige Goodrich NP Phone: tel: fax: [address] [address] Referral ID Status Reason Start Date Expiration Date Visits Re quested Visits Authorized [id number] Closed 05/10/2021 06/09/2022 1 1 Encounter Details Date Type Department Care Team (Late st Contact Info) Description 08/07/2021 9:56 AM CDT - 08/07/2021 11:59 PM CDT Hospital Encounter [facility] [place] [address] Paige Goodrich NP [address] [place] [address] Abnormal mammography Discharge Disposition: Discharge to home or self [...] 3 (three) times a day 90 tablet 08/02/2021 1 rizatriptan CORK INSULATOR (MAXALT-CORK INSULATOR) 10 mg disintegrating tabletIndications:Mi graine Take 1 tablet (10 mg total) by mouth once as needed for migraine May repeat in 2 hours if unresolved. Do not exceed 30 mg in 24 hours. 9 tablet 1 06/20/2021 2 documented as of this encounter Discharge Disposition Disposition Code Departure Means Destination Discharge to home or self care documented in this encounter Plan of Treatment Scheduled Procedures Name Priority Associated Diagnoses Date/Ti me COLONOSCOPY Encounter for screening colonoscopy documented as of this encounter Procedures Procedure Name Priority Date/Time Associated Diagnosis Comments US BREAST LEFT LIMITED Schedule Routine, Read Routine (OP Routine) 08/07/2021 10:36 AM CDT Abnormal mammography documented in this encounter Results * US Breast Left Limited (08/07/2021 10:36 AM CDT) Anatomical Region Laterality Modality Breast Left Ultrasound 08/07/2021 10:3 7 AM CDT Impressions 08/07/2021 10:37 AM CDT Cluster of microcysts in the 7 o'clock position of the left breast is probably benign. ??Recommend follow-up and on ultrasound in February 2022. OVERALL FINAL ASSESSMENT: BI-RADS Category 3: Probably Benign. RECOMMENDATION: Recommend follow-up ultrasound and mammogram in February 2022. Electronically signed by: Paradise Lynch M.D. Narrative 08/07/2021 10:37 AM CDT EXAMINATION: LEFT BREAST ULTRASOUND HISTORY: Short-term interval follow-up COMPARISON: 02/27/2021, 03/27/2021 TECHNIQUE: Directed ultrasound evaluation of the LEFT breast was performed. ULTRASOUND FINDINGS: At the 7 o'clock position of the left breast, 3 cm from the nipple, there is a cluster of microcysts measuring 7 x 4 x 5 mm. ??This is unchanged from prior exam and is probably benign. Procedure Note Paradise Lynch MD - 08/07/2021 EXAMINATION: LEFT BREAST ULTRASOUND HISTORY: Short-term interval follow-up COMPARISON: 02/27/2021, 03/27/2021 TECHNIQUE: Directed ultrasound evaluation of the LEFT breast was performed. ULTRASOUND FINDINGS: At the 7 o'clock position of the left breast, 3 cm from the nipple, there is a cluster of microcysts measuring 7 x 4 x 5 mm. This is unchanged from prior exam and is probably benign. IMPRESSION: Cluster of microcysts in the 7 o'clock position of the left breast is probably benign. Recommend follow-up and on ultrasound in February 2022. OVERALL FINAL ASSESSMENT: BI-RADS Category 3: Probably Benign. RECOMMENDATION: Recommend follow-up ultrasound and mammogram in February 2022. Electronically signed by: Paradise Lynch M.D. Paige Goodrich NP IMG MAMMO PROCEDURES Fin al Result documented in this encounter Visit Diagnoses Diagnosis Abnormal mammography Abnormal mammogram, unspecified documented in this encounter Care Teams Melter Caster Relationship Specialty Start Date End Date Gigi Cronin MD [address] [facility] [address] [place] [address] PCP - General Internal Medicine 09/17/20 documented as of this encounter
--- OUTSIDE RECORDS SUMMARY | 2024-11-27 15:43 | XMS_ITS | Encounter Summary ---
Author Organization [facility] Address [address] [place] [address] Phone Care Team Providers Care Color Worker Name Role Phone Gigi Cronin MD Primary Care Provider [phone] Reason for Visit * Consultation (Routine) - Closed Specialty Diagnoses / Procedures Referred By Rose saleh Referred To Contact Surgical Oncology Diagnoses Abnormal mammogram Gigi Cronin MD [address] [place] [address] Phone: tel: fax: [facility] (All Locations) Referral ID Status Reason Start Date Expiration Date V isits Requested Visits Authorized [id number] Closed Specialty Services Required 08/07/2021 09/06/2022 1 1 Encounter Details Date Type Department Care Team (Late st Contact Info) Description 05/06/2022 1:45 PM CDT Office Visit [facility] Surgery [address] [facility] 5th [place] [address] [place] [id number] Kerri Moyer MD [address] [place] [address] Abnormal mammogram (Primary Dx) Social History Tobacco [...] - - Weight 81.6 kg (180 lb) 05/06/2022 1:40 PM CDT Height 175.3 cm (5' 9 ) 05/06/2022 1:40 PM CDT Body Mass Index 26.58 05/06/2022 1:40 PM CDT documented in this encounter Progress Notes * Kerri Moyer MD - 05/06/2022 1:45 PM CDT Kerri Moyer M.D., [facility] ?? Department of Surgery [address] [place] [address] ?? [place] [address] ? 05/06/22 CHIEF COMPLAINT: Follow-up for left abnormal mammogram. HISTORY OF PRESENT ILLNESS: Yesika Mccullough is a 57 y.o. woman who presented to our nurse practitioner last fall for evaluation of a left abnormal mammogram. The patient was undergoing her routine mammogram when she was alerted to an abnormality in the left breast. She underwent additional imaging and ultimately was given a category 3 designation. She presented to our institution for another opinion regarding this. We did agree with the category 3 designation and recommended short interval follow-up. She presents today for that purpose and states that she has been well since she was seen last.The patient states that she herself had not noticed any abnormal masses in either breast. She denies any change in the appearance of her breasts or the skin of her breasts. She denies bilateral nipple discharge. She has no other systemic complaints and otherwise feels well today. Past Medical History: Diagnosis Date ??? Headache Past Surgical History: Procedure Laterality Date ??? 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 Marital status: Spouse name: Not on file ??? Number of children: Not on file ??? Years of education: Not on file ??? Highest education level: Not on file Occupational History ??? Not on file Tobacco Use ??? Smoking status: Current Every Day Smoker Packs/day: 1.00 Types: Cigarettes ??? Smokeless tobacco: Not on file Substance and Sexual Activity ??? Alcohol use: Yes ??? Drug use: Not on file ??? Sexual activity: Not on file Other Topics Concern ??? Not on file Social History Narrative ??? Not on file Social Determinants of Health Financial Resource Strain: Not on file Food Insecurity: Not on file Transportation Needs: Not on file Physical Activity: Not on file Stress: Not on file Social Connections: Not on file Intimate Partner Violence: Not on file Housing Stability: Not on file Family History Problem Relation Age of Onset ??? Heart disease Father The patient's review of systems were reviewed as per the chart today and no other findings were noted. PHYSICAL EXAMINATION: GENERAL: She is a well-developed, [...] personally reviewed all of the imaging performed. Today, she underwent bilateral diagnostic mammograms and a left breast ultrasound. The right breast was given a category 1 and the left breast was given a category 2. This was due to a cluster of microcysts at the 7 o'clock position. Theyhave decreased in size over time. IMPRESSION/RECOMMENDATION: Yesika Mccullough is a 57 y.o. woman who presents today for a follow-up regarding her left abnormal mammogram. I reviewed the clinical and imaging findings with her today. I reassured her that there is no need for any further intervention or biopsy at this time. In fact, we have downgraded her to a benign status. She was certainly quite pleased. I encouraged her to simply resume self examinations on a monthly basis and alert her physician of any changes. I also recommended that she resume yearly screening mammograms. I answered all of her questions thoroughly, and she does seem pleased with this plan of approach. I encouraged her to contact me in the future if any new questions or concerns arise. Kerri Moyer MD documented in this encounter Plan of Treatment Scheduled Procedures Name Priority Associated Diagnoses Date/Ti me COLONOSCOPY Encounter for screening colonoscopy documented as of this encounter Visit Diagnoses Diagnosis Abnormal mammogram- Primary Abnormal mammogram, unspecified documented in this encounter Orders Outpatient Referral Count Last Ordered Date Fir st Ordered Date AMB REFERRAL TO SURGICAL ONCOLOGY 1 022 documented in this encounter Care Teams Color Worker Relationship Specialty Start Date End Date Gigi Cronin MD [address] [address] PCP - General Internal Medicine 09/17/20 documented as of this encounter
--- OUTSIDE RECORDS SUMMARY | 2024-11-27 15:43 | XMS_ITS | Encounter Summary ---
Author Organization [facility] Address [address] [place] [address] Care Team Providers Care Button Cutting Machine Operator Name Role Phone Gigi Cronin MD Primary Care Provider [phone] Encounter Details Date Type Department Care Team (Late st Contact Info) Description 07/17/2023 Orders [facility] [address] [facility] [address] [place] [id number] Danielle Quiros, [place] [address] [place] [address] Social History Tobacco Use Types Packs/Day Years [...] mg) daily for 4 days. 6 tablet 07/17/2023 07/22/2023 documented in this encounter Plan of Treatment Scheduled Procedures Name Priority Associated Diagnoses Date/Ti ar COLONOSCOPY Encounter for screening colonoscopy documented as of this encounter Visit Diagnoses Not on filedocumented in this encounter Care Teams Button Cutting Machine Operator Relationship Specialty Start Date End Date Gigi Cronin MD [address] [place] [address] PCP - General Internal Medicine 09/17/20 documented as of this encounter
--- OUTSIDE RECORDS SUMMARY | 2024-11-27 15:43 | XMS_ITS | Encounter Summary ---
Author Organization [facility] Address [address] [place] [address] Care Team Providers Care Cost Specialist Name Role Phone Gigi Cronin MD Primary Care Provider [phone] Encounter Details Date Type Department Care Team (Late st Contact Info) Description 09/24/2020 [facility] [address] [facility] [address] [place] [address] Gigi Cronin MD [address] [facility] [address] [place] [address] Social History Tobacco Use Types [...] * Telephone Encounter - Danielle Quiros - 09/24/2020 4:59 PM CST lmom to call office Y TENDER * Telephone Encounter - Danielle Quiros - 09/24/2020 4:59 PM CST ----- Message from Gigi Cronin MD sent at 09/22/2020 9:06 AM CDT ----- Labs show mildly elevated wbc, etiology unclear, please repeat in 1 month, along with lft to assessstability of alk phos Y TENDER documented in this encounter Plan of Treatment Scheduled Procedures Name Priority Associated Diagnoses Date/Ti me COLONOSCOPY Encounter for screening colonoscopy documented as of this encounter Visit Diagnoses Not on filedocumented in this encounter Care Teams Cost Specialist Relationship Specialty Start Date End Date Gigi Cronin MD [address] [place] [address] PCP - General Internal Medicine 09/17/20 documented as of this encounter
--- OUTSIDE RECORDS SUMMARY | 2024-11-27 15:43 | XMS_ITS | Encounter Summary ---
Author Organization [facility] Address [address] [place] [address] Care Team Providers Care College Or University Faculty Member Name Role Phone Gigi Cronin MD Primary Care Provider [phone] Encounter Details Date Type Department Care Team (Late st Contact Info) Description 03/08/2021 [facility] [address] [facility] [address] [place] [address] Gigi Cronin MD [address] [facility] [address] [place] [address] Social History Tobacco Use Types [...] Telephone Encounter - Bernice Moran MA - 03/08/2021 12:42 PM CDT PATIENT IS SCHEDULED FOR 03-27-2021 FOR ULTRASOUND * Telephone Encounter - Bernice Moran MA - 03/08/2021 12:42 PM CDT ----- Message from Gigi Cronin MD sent at 03/07/2021 7:33 AM CDT ----- Patient is aware. Make sure us done (see note from patient) documented in this encounter Plan of Treatment Scheduled Procedures Name Priority Associated Diagnoses Date/Ti me COLONOSCOPY Encounter for screening colonoscopy documented as of this encounter Visit Diagnoses Not on filedocumented in this encounter Care Teams College Or University Faculty Member Relationship Specialty Start Date End Date Gigi Cronin MD [address] [facility] [address] [place] [address] PCP - General Internal Medicine 09/17/20 documented as of this encounter
--- OUTSIDE RECORDS SUMMARY | 2024-11-27 15:43 | XMS_ITS | Encounter Summary ---
Author Organization [facility] Address [address] [place] [address] Phone Care Team Providers Care Employment Agency Manager Name Role Phone Gigi Cronin MD Primary Care Provider [phone] Reason for Referral * Diagnostic Imaging (Routine) - Closed Specialty Diagnoses / Procedures Referred By Rose saleh Referred To Contact Diagnoses Abnormal mammography Procedures US Breast Left Limited Paige Goodrich NP Phone: tel: fax: [address] [address] Referral ID Status Reason Start Date Expiration Date Visits Re quested Visits Authorized [id number] Closed 05/10/2021 06/09/2022 1 1 Encounter Details Date Type Department Care Team (Late st Contact Info) Description 05/10/2021 Orders Only [facility] Surgery [address] [facility] 5th [place] [address] [place] [address] Paige Goodrich NP [address] [place] [address] Abnormal mammography (Primary Dx) Social History Tobacco Use Types [...] Scheduled Procedures Name Priority Associated Diagnoses Date/Ti de COLONOSCOPY Encounter for screening colonoscopy documented as of this encounter Results * US Breast Left [...] in this encounter Visit Diagnoses Diagnosis Abnormal mammography- Primary Abnormal mammogram, unspecified Abnormal mammography Abnormal mammogram, unspecified documented in this encounter Care Teams Employment Agency Manager Relationship Specialty Start Date End Date Gigi Cronin MD [address] [address] PCP - General Internal Medicine 09/17/20 documented as of this encounter
--- OUTSIDE RECORDS SUMMARY | 2024-11-27 15:43 | XMS_ITS | Encounter Summary ---
Author Organization [facility] Address [address] [place] [address] Care Team Providers Care Bank Guard Name Role Phone Gigi Cronin MD Primary Care Provider [phone] Encounter Details Date Type Department Care Team (Late st Contact Info) Description 02/26/2021 Telephone [facility] Advanced Medicine Breast Imaging [facility] Advanced Medicine ([facility]) [address] [place] [address] Kathleen Encinas RT Social History Tobacco Use Types Packs/Day [...] encounter Miscellaneous Notes * Telephone Encounter - Kathleen Encinas RT - 02/26/2021 9:09 AM CDT Screened/LNR documented in this encounter Plan of Treatment Scheduled Procedures Name Priority Associated Diagnoses Date/Ti me COLONOSCOPY Encounter for screening colonoscopy documented as of this encounter Visit Diagnoses Not on filedocumented in this encounter Care Teams Bank Guard Relationship Specialty Start Date End Date Gigi Cronin MD [address] [facility] [address] [place], [place] [id number] PCP - General Internal Medicine 09/17/20 documented as of this encounter
--- OUTSIDE RECORDS SUMMARY | 2024-11-27 15:43 | XMS_ITS | Encounter Summary ---
Author Organization [facility] Address [address] [place] [address] Care Team Providers Care Dynamometer Tuner Name Role Phone Gigi Cronin MD Primary Care Provider Reason for Referral * Diagnostic Imaging (Routine) - Closed Specialty Diagnoses / Procedures Referred By Contac t Referred To Contact Diagnoses Encounter for screening mammogram for malignant neoplasm of breast Procedures Screening Mammogram Bilateral W Alannah Garner NP [address] [facility] [address] [place] [address] Phone: tel: fax: [address] [phone] Referral ID Status Reason Start Date Expiration Date Visits Re quested Visits Authorized [id number] Closed 08/18/2023 09/16/2024 1 1 Reason for Visit * Reason Comments Preventative Care Encounter Details Date Type Department Care Team (Late st Contact Info) Description 08/18/2023 10:30 AM CDT Office Visit [facility] [address] [facility] [address] [facility] [facility] [place] [id number] Alannah Jules NP [address] [facility] [address] [place] [address] Hyperlipidemia, unspecified hyperlipidemia type (Primary Dx); IFG (impaired fasting glucose); Encounter for screening mammogram for malignant neoplasm of breast; Vitamin D deficiency; Routine general medical examination at a health care facility; Colon cancer screening; Personal history of colonic polyps Social History Tobacco Use Types Packs/Day Years [...] Sign Reading Time Taken Comments Blood Pressure 120/78 08/18/2023 10:28 AM CDT Pulse 61 08/18/2023 10:28 AM CDT Temperature - - Respiratory Rate - - Oxygen Saturation 98% 08/18/2023 10:28 AM CDT Inhaled Oxygen Concentration - - Weight 88.5 kg (195 lb) 08/18/2023 10:28 AM CDT Height 172.7 cm (5' 8 ) 08/18/2023 10:28 AM CDT Body Mass Index 29.65 08/18/2023 10:28 AM CDT documented in this encounter Patient Instructions * Patient Instructions* Alannah Jules NP - 08/18/2023 10:30 AM CDT Needs: Shingrix PCV20 Tdap documented in this encounter Ordered Prescriptions Prescription Sig Dispense Quantity Refills Last Filled Start Date End Date rosuvastatin (CRESTOR) 10 mg tablet Take 1 tablet (10 mg total) by mouth nightly 90 tablet 1 08/18/2023 escitalopram (LEXAPRO) 10 mg tablet Take 1 tablet (10 mg total) by mouth daily 90 tablet 1 08/18/2023 documented in this encounter Progress Notes * Alannah Jules, ELIESER - 08/18/2023 10:30 AM CDT Office Visit Yesika Mccullough is a 58 y.o. female here for Preventative Care HPI 58F with tobacco dependence and migraines. MMG 04/2022, due for repeat COLO- saw Dr. Morris ~4 years ago, coming due LDCT- needs Presents today for AWV Histories reviewed and updated as pertinent Has lifeline screen 01/2023 with mild carotid artery disease and no AAA. 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 Rare migraines, 2 x yearly. Aborted with Maxalt. MDD is worsening, mainly over loss of husbands mobility (paraplegic following AAA rupture). Sleeps ok Current Medications Current Outpatient Medications: rizatriptan SPRAY PAINTER HELPER (MAXALT-SPRAY PAINTER HELPER) 10 mg disintegrating tablet, Take 1 tablet (10 mg total) by mouth onceas needed for migraine May repeat in 2 hours if unresolved. Do not exceed 30 mg in 24 hours., Disp:9 tablet, Rfl: 0 escitalopram (LEXAPRO) 10 mg tablet, Take 1 tablet (10 mg total) by mouth daily, Disp: 90 tablet, Rfl: 1 rosuvastatin (CRESTOR) 10 mg tablet, Take 1 tablet (10 mg total) by mouth nightly, Disp: 90 tablet,Rfl: 1 Allergies No Known Allergies Past Medical and Surgical History: Patient Active Problem List Diagnosis Routine general medical examination at a health care facility Past Medical History: Diagnosis Date Headache Past Surgical History: Procedure Laterality Date APPENDECTOMY BREAST BIOPSY Left Benign COLECTOMY Family History: Family History Problem Relation Age of Onset Heart disease Mother Heart attack Mother 82 Heart disease Father Abdominal Aortic Aneurysm Father No Known Problems Brother Stroke Maternal Grandmother Social History: Social History Tobacco Use Smoking status: Former Packs/day: 1 Types: Cigarettes Quit date: 05/11/2023 Years since quittin.2 Smokeless tobacco: None Substance and Sexual Activity Drug use: None Sexual activity: None Alcohol Use: Unknown (08/07/2021) AUDIT-C Frequency of Alcohol Consumption: Monthly or less Average Number of Drinks: Not on file Frequency of Binge Drinking: Not on file Social History Social History Narrative Not on file There is no immunization history on file for this patient. Assessment/Plan Review of Systems Review of Systems See HPI Physical Exam Physical Exam Constitutional: Appearance: Normal appearance. She is normal weight. She is not ill-appearing. HENT: Head: Normocephalic. Right Ear: External ear normal. Left Ear: External ear normal. Nose: Nose normal. Mouth/Throat: Mouth: Mucous membranes are moist. Pharynx: Oropharynx is clear. Eyes: Pupils: Pupils are equal, round, and reactive to light. Cardiovascular: Rate and Rhythm: Normal rate and regular rhythm. Pulses: Normal pulses. Heart sounds: Normal heart sounds. Pulmonary: Effort: Pulmonary effort is normal. Breath sounds: Normal breath sounds. Abdominal: General: Bowel sounds are normal. Palpations: Abdomen is soft. Tenderness: There is no abdominal tenderness. There is no guarding. Musculoskeletal: General: Normal range of motion. Cervical back: Normal range of motion. Skin: General: Skin is warm and dry. Capillary Refill: Capillary refill takes less than 2 seconds. Findings: No lesion or rash. Neurological: General: No focal deficit present. Mental Status: She is alert and oriented to person, place, and time. Cranial Nerves: No cranial nerve deficit. Gait: Gait normal. Psychiatric: Mood and Affect: Mood normal. Behavior: Behavior normal. Thought Content: Thought content normal. Judgment: Judgment normal. Vitals BP 120/78 (BP Location: Left arm, Patient Position: Sitting) Pulse 61 Ht 172.7 cm (5' 8 ) Wt 88.5 kg (195 lb) SpO2 98% BMI 29.65 kg/m?? Wt Readings from Last 3 Encounters: 08/18/23 88.5 kg (195 lb) 05/06/22 81.6 kg (180 lb) 08/07/21 81.6 kg (180 lb) Body mass index is 29.65 kg/m??. Assessment and Plan Diagnoses and all orders for this visit: Hyperlipidemia, unspecified hyperlipidemia type (Primary) - POCT lipid panel - POCT glucose - POCT hemoglobin A1c - CBC with auto differential; Future - Comprehensive metabolic panel; Future - Urinalysis reflex to microscopic; Future - TSH reflex to free T4; Future IFG (impaired fasting glucose) - POCT glucose - POCT hemoglobin A1c Encounter for screening mammogram for malignant neoplasm of breast - Screening Mammogram Bilateral W [place]; Future Vitamin D deficiency - Vitamin D 25 hydroxy; Future Routine general medical examination at a health care facility Assessment & Plan: MMG referral entered, due 04/2023 DEXA @ age 61 COLO- due, discussed cologuard v colonoscopy Needs Tdap, PCV20 (+tobacco use hx) and Shingrix Has had AAA screen by [employer], reviewed under media Goal of 150 min/weekly of moderate intensity activity Start Crestor 10mg HS after starting Lexapro Start Lexapro 10mg HS for MDD Other orders - escitalopram (LEXAPRO) 10 mg tablet; Take 1 tablet (10 mg total) by mouth daily - rosuvastatin (CRESTOR) 10 mg tablet; Take 1 tablet (10 mg total) by mouth nightly Recommendations and Follow up Return in about 6 months (around 02/16/2024). Alannah Jules NP Cosigned by Gigi Cronin MD at 08/31/2023 11:34 AM CDT documented in this encounter Miscellaneous Notes * Assessment & Plan Note - Alannah Jules NP - 08/18/2023 12:10 PM CDT Associated Problem(s): Routine general medical examination at a health care facility MMG referral entered, due 04/2023 DEXA @ age 61 COLO- due, discussed cologuard v colonoscopy Needs Tdap, PCV20 (+tobacco use hx) and Shingrix Has had AAA screen by [employer], reviewed under media Goal of 150 min/weekly of moderate intensity activity Start Crestor 10mg HS after starting Lexapro Start Lexapro 10mg HS for MDD * Addendum Note - Sumaya Alvarez MA - 08/18/2023 10:30 AM CDTAddended by: SUMAYA ALVAREZ on: 08/19/2023 12:45 PM Modules accepted: Orders * Addendum Note - Sumaya Alvarez MA - 08/18/2023 10:30 AM CDTAddended by: SUMAYA ALVAREZ on: 08/21/2023 02:09 PM Modules accepted: Orders documented in this encounter Plan of Treatment Scheduled Procedures Name Priority Associated Diagnoses Date/Ti me COLONOSCOPY Encounter for screening colonoscopy documented as of this encounter Procedures Procedure Name Priority Date/Time Associated Diagnosis Comments MICROSCOPIC EXAMINATION Routine 08/18/2023 11:45 AM CDT THYROID FUNCTION CASCADE Routine 08/18/2023 11:45 AM CDT Hyperlipidemia, unspecified hyperlipidemia type URINALYSIS AND REFLEX TO MICROSCOPIC Routine 08/18/2023 11:45 AM CDT Hyperlipidemia, unspecified hyperlipidemia type CBC WITH AUTO DIFFERENTIAL Routine 08/18/2023 11:45 AM CDT Hyperlipidemia, unspecified hyperlipidemia type VITAMIN D 25 HYDROXY Routine 08/18/2023 11:45 AM CDT Vitamin D deficiency COMPREHENSIVE METABOLIC PANEL Routine 08/18/2023 11:45 AM CDT Hyperlipidemia, unspecified hyperlipidemia type POCT LIPID PANEL Routine 08/18/2023 10:5 6 AM CDT Hyperlipidemia, unspecified hyperlipidemia type POCT GLUCOSE 47045 Routine 08/18/2023 10 :55 AM CDT Hyperlipidemia, unspecified hyperlipidemia type IFG (impaired fasting glucose) POCT HEMOGLOBIN A1C Routine 08/18/2023 1 0:55 AM CDT Hyperlipidemia, unspecified hyperlipidemia type IFG (impaired fasting glucose) documented in this encounter Results * Screening [...] compared to prior imaging studies performed at [facility]. ??[facility] on 12/10/2011, and at [facility] on 02/27/2021 and 05/06/2022. [...] compared to prior imaging studies performed at [facility]. [facility] on 12/10/2011, andat [facility] on 02/27/2021 and 05/06/2022. [...] FINAL ASSESSMENT: BI-RADS CATEGORY 2: Benign. Alannah Samantha Dhara LADIES ATTENDANT IMG MAMMO PROCEDURES Fin al Result * (ABNORMAL) Microscopic Examination (08/18/2023 11:45 AM CDT) WBC, ur 0-5 0 - 5 /hpf [facility] - 01 RBC, ur None seen 0 - 2 /hpf [facility] - 01 Epithelial cells, non-renal, ur 0-10 0 - 10 /hpf [facility] - 01 Casts None seen None seen /lpf [facility] - 01 Crystals, ur Present(A) N/A [facility] - 01 Crystals, type Calcium Oxalate N/A [facility] - 01 Bacteria, ur Few None seen/Few [facility] - 01 08/18/2023 11:4 5 AM CDT 08/18/2023 Narrative [facility] - 08/19/2023 11:12 AM CDT Performed at: ??[address] ??[id number] Certified Master Locksmith: Too Peraza PhD, Phone: ??[phone] Alannah Jules LADIES ATTENDANT LAB BLOOD ORDERABLES Fin al Result Performing Organization Address [facility] Co de Phone Number [facility] - 01 * TSH reflex to free T4 (08/18/2023 11:45 AM CDT) TSH 0.568 0.450 - 4.500 uIU/mL [facility] - 01 Comment: No apparent thyroid disorder. Additional testing not indicated. In rare instances, Secondary Hypothyroidism as well as Subclinical Hypothyroidism have been reported in some patients with normal TSH values. Blood 08/18/2023 11:4 5 AM CDT 08/18/2023 Narrative [facility] - 08/19/2023 11:12 AM CDT Performed at: ??01 - [address] ??[id number] Certified Master Locksmith: Too Peraza PhD, Phone: ??[phone] Alannah Jules NP LAB BLOOD ORDERABLES Fin al Result Performing Organization Address [facility] de Phone Number [facility] - 01 * (ABNORMAL) Vitamin D 25 hydroxy (08/18/2023 11:45 AM CDT) Vitamin D, 25-Hydroxy 23.0(L) 30.0 - 100.0 ng/mL [facility] - 01 Comment: Vitamin D deficiency has been defined by the [place] of Medicine and an Endocrine Society practice guideline as a level of serum 25-OH vitamin D less than 20 ng/mL (1,2). The Endocrine Society went on to further define vitamin D insufficiency as a level between 21 and 29 ng/mL (2). 1. IOM ([place] of Medicine). 2010. Dietary reference ?? intakes for calcium and D. [place]: The ?? [employer]. 2. Alem MF, Savannah SNYDER, Ibrahima PINK, et al. ?? Evaluation, treatment, and prevention of vitamin D ?? deficiency: an Endocrine Society clinical practice ?? guideline. JCEM. 2010; 96(7):1911-30. Blood 08/18/2023 11:4 5 AM CDT 08/18/2023 Narrative [facility] - 08/19/2023 11:12 AM CDT Performed at: ??01 - [facility] [address] ??[id number] Certified Master Locksmith: Too Peraza PhD, Phone: ??[phone] Alannah Jules NP LAB BLOOD ORDERABLES Fin al Result Performing Organization Address [facility] Co de Phone Number [facility] - 01 * (ABNORMAL) Urinalysis reflex to microscopic (08/18/2023 11:45 AM CDT) Pathologist [facility] Specific [place] >=1.030(A) 1.005 - 1.030 [facility] - 01 pH, ur 5.0 5.0 - 7.5 [facility] - 01 Color, ur Yellow Yellow [facility] - 01 Appearance, ur Clear Clear [facility] - 01 Leukocyte esterase, ur 1+(A) Negative [facility] - 01 Protein, ur Trace Negative/Tra ce [facility] - 01 Glucose, ur Negative Negative [facility] - 01 Ketones, ur Negative Negative [facility] - 01 Blood, ur Negative Negative [facility] - 01 Bilirubin, ur Negative Negative [facility] - 01 Urobilinogen, quant, ur 0.2 0.2 - 1.0 mg/dL [facility] - 01 Nitrites, ur Negative Negative [facility] - 01 Urinalysis, microscopic exam See below: [facility] - 01 Comment:Microscopic was luis cated and was performed. Urine 08/18/2023 11:4 5 AM CDT 08/18/2023 Narrative [facility] - 08/19/2023 11:12 AM CDT Performed at: ??01 - [address] ??[id number] Certified Master Locksmith: Too Peraza PhD, Phone: ??[phone] us Alannah Jules LADIES ATTENDANT LAB URINE ORDERABLES [facility] al Result [facility] - 01 * Comprehensive metabolic panel (08/18/2023 11:45 AM CDT) Glucose 93 70 - 99 mg/dL [facility] - 01 BUN 18 6 - 24 mg/dL [facility] - 01 Creatinine, Serum 0.77 0.57 - 1.00 mg/dL [facility] - 01 eGFR 90 >59 mL/min/1.73 [facility] - 01 BUN/creat ratio 23 9 - 23 [facility] - 01 Sodium 143 134 - 144 mmol/L [facility] - 01 Potassium, sr 4.3 3.5 - 5.2 mmol/L [facility] - 01 Chloride 105 96 - 106 mmol/L [facility] - 01 CO2 23 20 - 29 mmol/L [facility] - 01 Calcium 10.0 8.7 - 10.2 mg/dL [facility] - 01 Protein, sr 6.9 6.0 - 8.5 g/dL [facility] - 01 Albumin 4.6 3.8 - 4.9 g/dL [facility] - 01 Globulin, Total 2.3 1.5 - 4.5 g/dL [facility] - 01 A/G Ratio 2.0 1.2 - 2.2 [facility] - 01 Bilirubin, Total 0.6 0.0 - 1.2 mg/dL [facility] - 01 Alk phos 91 44 - 121 IU/L [facility] - 01 AST 16 0 - 40 IU/L [facility] - 01 ALT 20 0 - 32 IU/L [facility] - 01 Blood 08/18/2023 11:4 5 AM CDT 08/18/2023 Narrative [facility] - 08/19/2023 11:12 AM CDT Performed at: ?? - [facility] [address] ??[id number] Certified Master Locksmith: Too Peraza PhD, Phone: ??[phone] us Alannah Jules LADIES ATTENDANT LAB BLOOD ORDERABLES Fin al Result [facility] - 01 * (ABNORMAL) CBC with auto differential (08/18/2023 11:45 AM CDT) WBC 9.3 3.4 - 10.8 x10E3/uL [facility] - 01 RBC 4.20 3.77 - 5.28 x10E6/uL [facility] - 01 Hgb 14.5 11.1 - 15.9 g/dL [facility] - 01 Hct 41.5 34.0 - 46.6 % [facility] - 01 MCV 99(H) 79 - 97 fL [facility] - 01 MCH 34.5(H) 26.6 - 33.0 pg [facility] - 01 MCHC 34.9 31.5 - 35.7 g/dL [facility] - 01 Rdw 12.7 11.7 - 15.4 % [facility] - 01 Platelets 229 150 - 450 x10E3/uL [facility] - 01 Neutrophils pct 67 Not Estab. % [facility] - 01 Lymphs pct 24 Not Estab. % [facility] - 01 Monocytes pct 7 Not Estab. % [facility] - 01 Eosinophils pct 2 Not Estab. % [facility] - 01 Basophil pct 0 Not Estab. % [facility] - 01 Neutrophil abs 6.2 1.4 - 7.0 x10E3/uL [facility] - 01 Lymphs (Absolute) 2.3 0.7 - 3.1 x10E3/uL [facility] - 01 Monocyte abs 0.6 0.1 - 0.9 x10E3/uL [facility] - 01 Eosinophils, abs 0.1 0.0 - 0.4 x10E3/uL [facility] - 01 Basophils, abs 0.0 0.0 - 0.2 x10E3/uL [facility] - 01 Immature Granulocytes 0 Not Estab. % [facility] - 01 Immature Grans (Abs) 0.0 0.0 - 0.1 x10E3/uL [facility] - 01 Blood 08/18/2023 11:4 5 AM CDT 08/18/2023 Narrative [facility] - 08/19/2023 11:12 AM CDT Performed at: ??01 - [facility] [address] ??[id number] Certified Master Locksmith: Too Peraza PhD, Phone: ??[phone] Alannah Jules LADIES ATTENDANT LAB BLOOD ORDERABLES Fin al Result [facility] - 01 * POCT lipid panel (08/18/2023 10:56 AM CDT) HDL, POC 45 mg/dL Triglycerides, POC 66 mg/dL LDL Cholesterol POC 160 mg/dL Chol/HDL Ratio, POC 4.8 Non-HDL Cholesterol, POC 173 mg/dL Cholesterol Total, POC 218 mg/dL Capillary blood 08/18/2023 1 0:56 AM CDT Alannah Jules LADIES ATTENDANT POINT OF CARE TEST ORDER ANASTASIA Final Result * POCT hemoglobin A1c (08/18/2023 10:55 AM CDT) Hemoglobin A1C, POC 5.1 % Blood 08/18/2023 10:5 5 AM CDT Alannah Jules NP POINT OF CARE TEST ORDER ANASTASIA Final Result * POCT glucose (08/18/2023 10:55 AM CDT) Glucose Blood, POC 98 mg/dL Blood 08/18/2023 10:5 5 AM CDT Alannah Jules NP POINT OF CARE TEST ORDER ANASTASIA Final Result documented in this encounter Visit Diagnoses Diagnosis Hyperlipidemia, unspecified hyperlipidemia type- Primary IFG (impaired fasting glucose) Encounter for screening mammogram for malignant neoplasm of breast Vitamin D deficiency Routine general medical examination at a health care facility Colon cancer screening Special screening for malignant neoplasms, colon Personal history of colonic polyps Encounter for screening mammogram for malignant neoplasm of breast documented in this encounter Discontinued Medications Medication Sig Discontinue Reason Start Date End Da te ALPRAZolam (XANAX) 0.25 mg tablet Take 1 tablet (0.25 mg total) by mouth 3 (three) times a day 01/12/2023 08/18/2023 documented as of this encounter Care Teams Dynamometer Tuner Relationship Specialty Start Date End Date Gigi Cronin MD [address] [address] PCP - General Internal Medicine 09/17/20 documented as of this encounter
--- OUTSIDE RECORDS SUMMARY | 2024-11-27 20:02 | XMS_ITS | Encounter Summary ---
Author Organization [facility] Address [address] [place] [address] Care Team Providers Care Meteorological Technician Name Role Phone Gigi Cronin MD Primary Care Provider [phone] Reason for Referral * Diagnostic Imaging (Routine) - Closed Specialty Diagnoses / Procedures Referred By Contac t Referred To Contact Diagnoses Encounter for screening mammogram for malignant neoplasm of breast Procedures Screening Mammogram Bilateral W Alannah Garner NP [address] [facility] [address] [place] [address] Phone: tel: fax: [address] [address] Referral ID Status Reason Start Date Expiration Date Visits Re quested Visits Authorized [id number] Closed 08/18/2023 09/16/2024 1 1 Reason for Visit * Reason Comments Preventative Care Encounter Details Date Type Department Care Team (Late st Contact Info) Description 08/18/2023 10:30 AM CDT Office Visit [facility] [address] [facility] [address] [place] [id number] Alannah Jules NP [address] [facility] [address] [place] [address] Hyperlipidemia, unspecified hyperlipidemia type (Primary [...] 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 Rare migraines, 2 x yearly. Aborted with Maxalt. MDD is worsening, mainly over loss of husbands mobility (paraplegic following AAA rupture). Sleeps ok Current Medications Current Outpatient Medications: rizatriptan TEST TECH (MAXALT-TEST TECH) 10 mg disintegrating tablet, Take 1 tablet [...] and Shingrix Has had AAA screen by [employer], reviewed under media Goal of 150 min/weekly [...] and Shingrix Has had AAA screen by [employer], reviewed under media Goal of 150 min/weekly [...] CDT Hyperlipidemia, unspecified hyperlipidemia type POCT GLUCOSE [id number] Routine 08/18/2023 10 :55 AM CDT Hyperlipidemia, [...] compared to prior imaging studies performed at [facility]. ??[facility] on 12/10/2011, and at [facility] on 02/27/2021 and 05/06/2022. The breasts are [...] compared to prior imaging studies performed at [facility]. [facility] on 12/10/2011, andat [facility] on 02/27/2021 and 05/06/2022. The breasts are [...] BI-RADS CATEGORY 2: Benign. Alannah Samantha Dhara CLINICAL PRACTITIONER IMG MAMMO PROCEDURES Fin al Result * [...] 08/19/2023 11:12 AM CDT Performed at: ??[address] ??[id number] Preparer Making Department: Too Peraza PhD, Phone: ??[phone] Alannah Jules CLINICAL PRACTITIONER LAB BLOOD ORDERABLES Fin al Result Performing Organization Address [facility] Co de Phone Number [facility] - [...] AM CDT Performed at: ??01 - [address] ??[id number] Preparer Making Department: Too Peraza PhD, Phone: ??[phone] Alannah Jules NP LAB BLOOD ORDERABLES Fin al Result Performing Organization Address [facility] de Phone Number [facility] - 01 * (ABNORMAL) Vitamin D 25 hydroxy (08/18/2023 11:45 AM CDT) Vitamin D, 25-Hydroxy 23.0(L) 30.0 - 100.0 ng/mL [facility] - 01 Comment: Vitamin D deficiency has been defined by the [place] of Medicine and an Endocrine Society practice guideline as a level of serum 25-OH vitamin D less than 20 ng/mL (1,2). The Endocrine Society went on to further define vitamin D insufficiency as a level between 21 and 29 ng/mL (2). 1. IOM ([place] of [employer]). 2010. Dietary reference ?? intakes for calcium and D. [place]: The ?? National [employer]. 2. Alem MF, Savannah SNYDER, Ibrahima PINK, et al. ?? Evaluation, treatment, and prevention of vitamin D ?? deficiency: an Endocrine Society clinical practice ?? guideline. JCEM. 2010; 96(7):1911-30. Blood 08/18/2023 11:4 5 AM CDT 08/18/2023 Narrative [facility] - 08/19/2023 11:12 AM CDT Performed at: ??01 - [facility] [address] ??[id number] Preparer Making Department: Too Peraza PhD, Phone: ??[phone] Alannah Jules NP LAB BLOOD ORDERABLES Fin al Result Performing Organization Address [facility] Co de Phone Number [facility] - 01 * (ABNORMAL) Urinalysis reflex to microscopic (08/18/2023 11:45 AM CDT) Pathologist [facility] Specific [place] >=1.030(A) 1.005 - 1.030 [facility] - 01 [...] 11:12 AM CDT Performed at: ??01 - [address] ??[id number] Preparer Making Department: Too Peraza PhD, Phone: ??[phone] us Alannah Jules CLINICAL PRACTITIONER LAB URINE ORDERABLES [facility] al Result [facility] - 01 [...] AM CDT Performed at: ?? - [facility] [address] ??[id number] Preparer Making Department: Too Peraza PhD, Phone: ??[phone] us Alannah Jules CLINICAL PRACTITIONER LAB BLOOD ORDERABLES Fin al Result [facility] [...] AM CDT Performed at: ??01 - [facility] [address] ??[id number] Preparer Making Department: Too Peraza PhD, Phone: ??[phone] Alannah Jules CLINICAL PRACTITIONER LAB BLOOD ORDERABLES Fin al Result [facility] - 01 * POCT lipid panel (08/18/2023 10:56 AM CDT) HDL, POC 45 mg/dL Triglycerides, POC 66 mg/dL LDL Cholesterol POC 160 mg/dL Chol/HDL Ratio, POC 4.8 Non-HDL Cholesterol, POC 173 mg/dL Cholesterol Total, POC 218 mg/dL Capillary blood 08/18/2023 1 0:56 AM CDT Alannah Jules CLINICAL PRACTITIONER POINT OF CARE TEST ORDER ANASTASIA Final [...] documented as of this encounter Care Teams Meteorological Technician Relationship Specialty Start Date End Date Gigi Cronin MD [address] [address] PCP - General Internal Medicine 09/17/20 documented as of this encounter
--- OUTSIDE RECORDS SUMMARY | 2024-11-27 20:02 | XMS_ITS | Encounter Summary ---
Author Organization [facility] Address [address] [place] [address] Care Team Providers Care Mysql Developer Name Role Phone Gigi Cronin MD Primary Care Provider [phone] Encounter Details Date Type Department Care Team (Late st Contact Info) Description 09/30/2023 [facility] [address] [facility] [address] [place] [address] Gigi Cronin MD [address] [facility] [address] [place] [address] Social History Tobacco Use Types [...] CST Lm for patient and order entered. APIN FISHER * Telephone Encounter - Alannah Jules NP - 09/30/2023 1:04 PM TERRAPIN FISHER Ok to do as long as she understands if it is positive she will need actual colonoscopy and that will then be diagnostic which will have a larger cost than as a screening APIN FISHER * Telephone Encounter - Bernice Moran MA - 09/30/2023 10:08 AM CST Pt changed her mind about having a colonoscopy and prefers to have Cologuard and asking if you willorder . She states she did have abnormal colonoscopy and had Colectomy APIN FISHER documented in this encounter Plan of Treatment Scheduled Procedures Name Priority Associated Diagnoses Date/Ti me COLONOSCOPY Encounter for screening colonoscopy documented as of this encounter Procedures Procedure Name Priority Date/Time Associated Diagnosis Comments STOOL DNA ? COLOGUARD Routine 10/20/2023 6:00 AM TERRAPIN FISHER Colon cancer screening documented in this encounter Results * Stool DNA - Cologuard (10/20/2023 6:00 AM TERRAPIN FISHER) Stool DNA - Cologuard Negative Negative [employer] (CLIA #:[id number]) Comment: NEGATIVE TEST RESULT. A negative Cologuard [...] cancer. ??Following a negative Cologuard result, the [place] Cancer Society and U.S. Multi-Society Task Force screening guidelines recommend a Cologuard re-screening interval of 3 years. References: [place] Cancer Society Guideline for Colorectal Cancer Screening: https://www.cancer.org/cancer/qipjl-ncuscq-sozbko/jlkyhcpue-ftogbedyq-ixnnucc/ac s-rec ommendations.html.; Eliecer SAMUELS, Jorge A GUSMAN, Al ButlerK, Colorectal Cancer Screening: Recommendations for Physicians and Patients from the U.S. Multi-Society Task Force on Colorectal Cancer Screening , Am J Gastroenterology 2017; 112:6772-8668. TEST DESCRIPTION: Composite algorithmic analysis of stool [...] Grace et al, N Engl J Med 2014;370(14):9139-8230.) Cologuard may produce a false negative or false positive result (no colorectal cancer or precancerous polyp present at colonoscopy follow up). A negative Cologuard test result does not guarantee the absence of CRC or advanced adenoma (pre-cancer). The current Cologuard screening interval is every 3 years. ([place] Cancer Society and U.S. Multi-Society Task Force). Cologuard performance data in a 10,000 patient pivotal study using colonoscopy as the reference method can be accessed at the following location: www.imo.im.[employer]PI[employer]/results. Additional description of the Cologuard test process, warnings and precautions can be found at www.FarfetchogNumerifyrd.com. Stool 10/20/2023 6:00 AM TERRAPIN FISHER 11/06/2023 6:44 PM TERRAPIN FISHER us Alannah Jules GREENHOUSE STAFF LAB BODY FLUIDS AND STOO LS ORDERABLES Final Result [employer] (CLIA #:[id number]) Vivian [place] [address] documented in this encounter Visit Diagnoses Diagnosis Colon cancer screening- Primary Special screening for malignant neoplasms, colon documented in this encounter Care Teams Mysql Developer Relationship Specialty Start Date End Date Gigi Cronin MD [address] [place] [address] PCP - General Internal Medicine 09/17/20 documented as of this encounter
--- OUTSIDE RECORDS SUMMARY | 2024-11-27 20:02 | XMS_ITS | Clinical Summary ---
Author Organization [facility] [address] Address [address] [place] [address] Care Team Providers Care Corn Cutter Name Role Phone Gigi Cronin MD Primary Care Provider [phone] Allergies No known active allergies Medications escitalopram (LEXAPRO) 10 mg tablet Take 1 tablet (10 mg total) by mouth daily 90 tablet 1 3 Active rosuvastatin (CRESTOR) 10 mg tablet Take 1 tablet (10 mg total) by mouth nightly 90 tablet 1 3 Active rizatriptan SHIPPING AGENT (MAXALT-SHIPPING AGENT) 10 mg disintegrating tabletIndications: Migraine Take 1 [...] and Shingrix Has had AAA screen by [employer], reviewed under media Goal of 150 min/weekly of moderate intensity activity Start Crestor 10mg HS after starting Lexapro Start Lexapro 10mg HS for MDD Resolved Problems Problem Noted Date Diagnosed Date Resolved Date Abnormal mammogram 05/06/2022 3 Encounters Date Type Department Care Team Description 11/20/2024 Orders Only [facility] [address] [place] for [facility] [place] [address] Gigi Cronin MD from Last 3 Months [...] Comments SCAN - LABS 11/20/2024 10:14 PM MANAGER RESPIRATORY CARE SCREENING MAMMOGRAM BILATERAL W POLO Schedule Routine, Read Routine (OP Routine) 02/16/2024 12:17 PM CDT Encounter for screening mammogram for malignant neoplasm of breast STOOL DNA ? COLOGUARD Routine 10/20/2023 6:00 AM MANAGER RESPIRATORY CARE Colon cancer screening from Last 3 Months or Most Recently Relevant to Health Maintenance Results * SCAN - LABS (11/20/2024 10:14 PM MANAGER RESPIRATORY CARE) us Gigi Cronin MD Final Result * [...] compared to prior imaging studies performed at [facility]. ??[facility] on 12/10/2011, and at [facility] on 02/27/2021 and 05/06/2022. The breasts are [...] compared to prior imaging studies performed at [facility]. [facility] on [facility], [facility] and 05/06/2022. The breasts [...] Stool DNA - Cologuard (10/20/2023 6:00 AM MANAGER RESPIRATORY CARE) Stool DNA - Cologuard Negative Negative [employer] (AppfricaIA #:[id number]) Comment: NEGATIVE TEST RESULT. A negative Cologuard [...] cancer. ??Following a negative Cologuard result, the [place] Cancer Society and U.S. Multi-Society Task Force screening guidelines recommend a Cologuard re-screening interval of 3 years. References: [place] Cancer Society Guideline for Colorectal Cancer Screening: https://www.cancer.org/cancer/ghpid-tpduej-fmywjo/bbrxdycsy-ceirkfiis-gfznzst/ac s-rec ommendations.html.; Eliecer DK, Jorge A CR, Al ButlerK, Colorectal Cancer Screening: Recommendations for Physicians and Patients from the U.S. Multi-Society Task Force on Colorectal Cancer Screening , Am J Gastroenterology 2017; 112:0018-4049. TEST DESCRIPTION: Composite algorithmic analysis of stool [...] (Pj Lopez al, N Engl J Med 2014;370(14):7917-7492.) Cologuard may produce a false negative or false positive result (no colorectal cancer or precancerous polyp present at colonoscopy follow up). A negative Cologuard test result does not guarantee the absence of CRC or advanced adenoma (pre-cancer). The current Cologuard screening interval is every 3 years. ([place] Cancer Society and U.S. Multi-Society Task Force). Cologuard performance data in a 10,000 patient pivotal study using colonoscopy as the reference method can be accessed at the following location: www.[employer]ipe.[employer]ensions/results. Additional description of the Cologuard test process, warnings and precautions can be found at www.Zeenshare.Cardiac Dimensions. Stool 10/20/2023 6:00 AM MANAGER RESPIRATORY CARE 11/06/2023 6:44 PM MANAGER RESPIRATORY CARE us Alannah Jules WEB MASTER LAB BODY FLUIDS AND STOO LS ORDERABLES Final Result [facility] (CLIA #:[id number]) [place] [address] from Last 3 Months or Most Recently Relevant to [place] [address] [facility] [address] [place] [address] [facility] [place] [address] Care Teams Corn Cutter Relationship Specialty Start Date End Date Gigi Cronin MD [address] [address] PCP - General Internal Medicine 09/17/20
--- OUTSIDE RECORDS SUMMARY | 2024-11-27 20:02 | XMS_ITS | Encounter Summary ---
Author Organization [facility] Address [address] [place] [address] Care Team Providers Care Product Support Sales Representative Name Role Phone Gigi Cronin MD Primary Care Provider [phone] Encounter Details Date Type Department Care Team (Late st Contact Info) Description 05/07/2022 Orders [facility] [address] [facility] [address] [place] [address] Gigi Cronin MD [address] [facility] [address] [place] [address] Social History Tobacco Use Types [...] on filedocumented in this encounter Care Teams Product Support Sales Representative Relationship Specialty Start Date End Date Gigi Cronin MD [address] [facility] [address] [place] [address] PCP - General Internal Medicine 09/17/20 documented as of this encounter
--- OUTSIDE RECORDS SUMMARY | 2024-11-27 20:02 | XMS_ITS | Encounter Summary ---
Author Organization [facility] Address [address] [place] [address] Care Team Providers Care Rug Designer Name Role Phone Gigi Cronin MD Primary Care Provider [phone] Encounter Details Date Type Department Care Team (Late st Contact Info) Description 08/19/2023 [facility] [address] [facility] [address] [place] [address] Alannah Jules, NONPROFIT DIRECTOR [address] [facility] [address] [place] [address] Social History Tobacco Use Types [...] AM CDT [facility] and [facility] aware * Telephone Encounter [...] Scheduled Procedures Name Priority Associated Diagnoses Date/Ti il COLONOSCOPY Encounter for screening colonoscopy documented as of this encounter Visit Diagnoses Not on filedocumented in this encounter Care Teams Rug Designer Relationship Specialty Start Date End Date Gigi Cronin MD [address] [place] [address] PCP - General Internal Medicine 09/17/20 documented as of this encounter
--- OUTSIDE RECORDS SUMMARY | 2024-11-27 20:02 | XMS_ITS | Referral Summary ---
Author Organization [facility] [address] Address [address] [place] [address] Care Team Providers Care Guest Experience Representative Name Role Phone Gigi Cronin MD Primary Care Provider [phone] Encounters Date Type Department Care Team Description 11/20/2024 Orders Only [facility] [address] [facility] [address] [facility] [place] [address] Gigi Cronin MD from Last 3 Months Allergies No known active allergies Medications escitalopram (LEXAPRO) 10 mg tablet Take 1 tablet (10 mg total) by mouth daily 90 tablet 1 3 Active rosuvastatin (CRESTOR) 10 mg tablet Take 1 tablet (10 mg total) by mouth nightly 90 tablet 1 3 Active rizatriptan ARCHITECTURE DEPARTMENT CHAIR (MAXALT-ARCHITECTURE DEPARTMENT CHAIR) 10 mg disintegrating tabletIndications: Migraine Take 1 [...] and Shingrix Has had AAA screen by [employer], reviewed under media Goal of 150 min/weekly [...] Comments SCAN - LABS 11/20/2024 10:14 PM FLOUR DISTRIBUTOR SCREENING MAMMOGRAM BILATERAL W POLO Schedule Routine, Read Routine (OP Routine) 02/16/2024 12:17 PM CDT Encounter for screening mammogram for malignant neoplasm of breast STOOL DNA ? COLOGUARD Routine 10/20/2023 6:00 AM FLOUR DISTRIBUTOR Colon cancer screening from Last 3 Months or Most Recently Relevant to Health Maintenance Results * SCAN - LABS (11/20/2024 10:14 PM FLOUR DISTRIBUTOR) us Gigi Cronin MD Final Result * [...] compared to prior imaging studies performed at [facility]. [facility] on 12/10/2011, and at [facility] on 02/27/2021 and 05/06/2022. The breasts are [...] compared to prior imaging studies performed at [facility]. [facility] on 12/10/2011, andat [facility] on 02/27/2021 and 05/06/2022. The breasts are [...] Stool DNA - Cologuard (10/20/2023 6:00 AM FLOUR DISTRIBUTOR) Stool DNA - Cologuard Negative Negative [employer] (EtactsIA #:[id number]) Comment: NEGATIVE TEST RESULT. A negative Cologuard [...] cancer. ??Following a negative Cologuard result, the [place] Cancer Society and U.S. Multi-Society Task Force screening guidelines recommend a Cologuard re-screening interval of 3 years. References: [place] Cancer Society Guideline for Colorectal Cancer Screening: https://www.cancer.org/cancer/ifakc-ylkrdh-gjytrb/utszvjqib-pxdyhccgo-rsegyud/ac s-rec ommendations.html.; Eliecer DK, Jorge A GUSMAN, Al ButlerK, Colorectal Cancer Screening: Recommendations for Physicians and Patients from the U.S. Multi-Society Task Force on Colorectal Cancer Screening , Am J Gastroenterology 2017; 112:3517-2099. TEST DESCRIPTION: Composite algorithmic analysis of stool [...] (Pj Lopez al, N Engl J Med 2014;370(14):5151-7224.) Cologuard may produce a false negative or false positive result (no colorectal cancer or precancerous polyp present at colonoscopy follow up). A negative Cologuard test result does not guarantee the absence of CRC or advanced adenoma (pre-cancer). The current Cologuard screening interval is every 3 years. ([place] Cancer Society and U.S. Multi-Society Task Force). Cologuard performance data in a 10,000 patient pivotal study using colonoscopy as the reference method can be accessed at the following location: www.[employer]ers.mgMEDIA/results. Additional description of the Cologuard test process, warnings and precautions can be found at www.cologuard.com. Stool 10/20/2023 6:00 AM FLOUR DISTRIBUTOR 11/06/2023 6:44 PM FLOUR DISTRIBUTOR Alannah Jules STITCHER AROUND LAB BODY FLUIDS AND STOO LS ORDERABLES Final Result [facility] (CLIA #:[id number]) [place] [address] from Last 3 Months or Most Recently Relevant to Health [place] [address] [facility] [address] [place] [address] [facility] [address] [place] [address] Care Teams Guest Experience Representative Relationship Specialty Start Date End Date Gigi Cronin MD [address] [facility] [address] [place] [address] PCP - General Internal Medicine 09/17/20
--- OUTSIDE RECORDS SUMMARY | 2024-11-27 20:02 | XMS_ITS | Encounter Summary ---
Author Organization [facility] Address [address] [place] [address] Care Team Providers Care Director Medical Affairs Name Role Phone Gigi Cronin MD Primary Care Provider [phone] Encounter Details Date Type Department Care Team (Late st Contact Info) Description 08/19/2023 [facility] [address] [facility] [address] [facility] [place] [address] Alannah Jules, SENIOR ANIMAL TRAINER [address] [facility] [address] [place] [address] Social History Tobacco Use Types [...] Scheduled Procedures Name Priority Associated Diagnoses Date/Ti ak COLONOSCOPY Encounter for screening colonoscopy documented as of this encounter Visit Diagnoses Not on filedocumented in this encounter Care Teams Director Medical Affairs Relationship Specialty Start Date End Date Gigi Cronin MD [address] [address] PCP - General Internal Medicine 09/17/20 documented as of this encounter
--- OUTSIDE RECORDS SUMMARY | 2024-11-27 20:02 | XMS_ITS | Encounter Summary ---
Author Organization [facility] Address [address] [place] [address] Care Team Providers Care Production Worker Name Role Phone Gigi Cronin MD Primary Care Provider [phone] Encounter Details Date Type Department Care Team (Late st Contact Info) Description 10/27/2023 [facility] [address] [facility] [address] [place] [address] Alannah Jules, FERMENTATION MANAGER [address] [facility] [address] [place] [address] Social History Tobacco Use Types [...] - 10/27/2023 9:29 AM CST Pt aware CHLORIDE OPERATOR * Telephone Encounter - Sumaya Haji MA - 10/27/2023 9:12 AM CST LM to call ofc CHLORIDE OPERATOR * Telephone Encounter - Sumaya Haji MA - 10/27/2023 9:11 AM CST ----- Message from Alannah Jules NP sent at 10/27/2023 8:56 AM ZINC CHLORIDE OPERATOR ----- Unfortunately will need to repeat cologuard, it was not able to be processed. They should be reaching out. CHLORIDE OPERATOR documented in this encounter Plan of Treatment Scheduled Procedures Name Priority Associated Diagnoses Date/Ti me COLONOSCOPY Encounter for screening colonoscopy documented as of this encounter Visit Diagnoses Not on filedocumented in this encounter Care Teams Production Worker Relationship Specialty Start Date End Date Gigi Cronin MD [address] [place] [address] PCP - General Internal Medicine 09/17/20 documented as of this encounter
--- OUTSIDE RECORDS SUMMARY | 2024-11-27 20:02 | XMS_ITS | Encounter Summary ---
Author Organization [facility] Address [address] [place] [address] Care Team Providers Care Instructional Designer Name Role Phone Gigi Cronin MD Primary Care Provider [phone] Reason for Visit * Reason Comments Hyperlipidemia Headache Anxiety Encounter Details Date Type Department Care Team (Late st Contact Info) Description 02/16/2024 11:30 AM CDT Office Visit [facility] [address] [facility] [address] [place] [address] Gigi Cronin MD [address] [facility] [facility] [address] [place] [address] Mixed hyperlipidemia (Primary Dx); Anxiety; [...] (10 mg total) by mouth daily rizatriptan MIDDLE SCHOOL FRENCH TEACHER (MAXALT-MIDDLE SCHOOL FRENCH TEACHER) 10 mg disintegrating tablet Take 1 tablet [...] Scheduled Procedures Name Priority Associated Diagnoses Date/Ti nh COLONOSCOPY Encounter for screening colonoscopy documented as of this encounter Visit Diagnoses Diagnosis Mixed hyperlipidemia- Primary Anxiety Anxiety state, unspecified Vitamin D deficiency documented in this encounter Care Teams Instructional Designer Relationship Specialty Start Date End Date Gigi Cronin MD [address] [address] PCP - General Internal Medicine 09/17/20 documented as of this encounter
--- OUTSIDE RECORDS SUMMARY | 2024-11-27 20:02 | XMS_ITS | Encounter Summary ---
Author Organization [facility] Address [address] [place] [address] Care Team Providers Care Billing Manager Name Role Phone Gigi Cronin MD Primary Care Provider [phone] Encounter Details Date Type Department Care Team (Late st Contact Info) Description 07/17/2023 Orders [facility] [address] [facility] [address] [place] [facility] [place] [address] Danielle Quiros, MA [address] [place] [address] Social History Tobacco Use Types Packs/Day Years [...] Scheduled Procedures Name Priority Associated Diagnoses Date/Ti nc COLONOSCOPY Encounter for screening colonoscopy documented as of this encounter Visit Diagnoses Not on filedocumented in this encounter Care Teams Billing Manager Relationship Specialty Start Date End Date Gigi Cronin MD [address] [place] [address] PCP - General Internal Medicine 09/17/20 documented as of this encounter
--- OUTSIDE RECORDS SUMMARY | 2024-11-27 20:02 | XMS_ITS | Encounter Summary ---
Author Organization [facility] Address [address] [place] [address] Care Team Providers Care Framing Mechanic Name Role Phone Gigi Cronin MD Primary Care Provider [phone] Reason for Referral * Diagnostic Imaging (Routine) - Closed Specialty Diagnoses / Procedures Referred By Rose saleh Referred To Contact Diagnoses Encounter for screening mammogram for malignant neoplasm of breast Procedures Screening Mammogram Bilateral W Alannah Garner NP [address] [address] Phone: tel: fax: [address] [address] Referral ID Status Reason Start Date Expiration Date Visits Re quested Visits Authorized [id number] Closed 08/18/2023 09/16/2024 1 1 Reason for Visit * Diagnostic Imaging (Routine) - Closed Specialty Diagnoses / Procedures Referred By Rose saleh Referred To Contact Diagnoses Encounter for screening mammogram for malignant neoplasm of breast Procedures Screening Mammogram Bilateral W Alannah Garner NP [address] [address] Phone: tel: fax: [address] [address] Referral ID Status Reason Start Date Expiration Date Visits Re quested Visits Authorized [id number] Closed 08/18/2023 09/16/2024 1 1 Encounter Details Date Type Department Care Team (Latest Contact Info) Description 02/16/2024 11:58 AM CDT - 02/16/2024 11:59 PM CDT Hospital Encounter [facility] [address] [place] [address] Encounter for screening mammogram for malignant neoplasm [...] week 13 capsule 3 08/19/2023 4 rizatriptan MARKING CLERK (MAXALT-MARKING CLERK) 10 mg disintegrating tabletIndications:Mi graine Take 1 [...] compared to prior imaging studies performed at [facility]. [facility] [place] on 12/10/2011, and at [facility] on 02/27/2021 and 05/06/2022. The [...] compared to prior imaging studies performed at [facility]. [facility], [facility]06[facility]20[facility]. The breasts are [...] breast documented in this encounter Care Teams Framing Mechanic Relationship Specialty Start Date End Date Gigi Cronin MD [address] [address] PCP - General Internal Medicine 09/17/20 documented as of this encounter
--- OUTSIDE RECORDS SUMMARY | 2024-11-27 20:03 | XMS_ITS | Encounter Summary ---
Author Organization [facility] Address [address] [place] [address] Care Team Providers Care Rock Climbing Instructor Name Role Phone Gigi Cronin MD Primary Care Provider [phone] Encounter Details Date Type Department Care Team (Late st Contact Info) Description 01/15/2022 Orders [facility] [address] [facility] [address] [place] [address] Gigi Cronin MD [address] [facility] [address] [place] [address] Social History Tobacco Use Types [...] Scheduled Procedures Name Priority Associated Diagnoses Date/Ti mn COLONOSCOPY Encounter for screening colonoscopy documented as of this encounter Visit Diagnoses Not on filedocumented in this encounter Care Teams Rock Climbing Instructor Relationship Specialty Start Date End Date Gigi Cronin MD [address] [facility] [address] [place] [address] PCP - General Internal Medicine 09/17/20 documented as of this encounter
--- OUTSIDE RECORDS SUMMARY | 2024-11-27 20:03 | XMS_ITS | Encounter Summary ---
Author Organization [facility] Address [address] [place] [address] Care Team Providers Care Irrigation Engineer Name Role Phone Gigi Cronin MD Primary Care Provider [phone] Encounter Details Date Type Department Care Team (Late st Contact Info) Description 03/28/2021 [facility] [address] [facility] [address] [place] [address] Gigi Cronin MD [address] [facility] [address] [place] [address] Social History Tobacco Use Types [...] on filedocumented in this encounter Care Teams Irrigation Engineer Relationship Specialty Start Date End Date Gigi Cronin MD [address] [place] [address] PCP - General Internal Medicine 09/17/20 documented as of this encounter
--- OUTSIDE RECORDS SUMMARY | 2024-11-27 20:03 | XMS_ITS | Encounter Summary ---
Author Organization [facility] Address [address] [place] [address] Care Team Providers Care Vp Of Marketing Name Role Phone Gigi Cronin MD Primary Care Provider Encounter Details Date Type Department Care Team (Late st Contact Info) Description 09/26/2020 [facility] [address] [facility] [address] [place] [address] Gigi Cronin MD [address] [facility] [address] [place] [address] Social History Tobacco Use Types [...] Last Filled Start Date End Date rizatriptan MARKETING DEVELOPMENT MANAGER (MAXALT-MARKETING DEVELOPMENT MANAGER) 10 mg disintegrating tabletIndications:Mi graine Take 1 [...] get back to us with what labs MY RN * Telephone Encounter - Danielle Quiros. - 09/26/2020 10:59 AM CST ----- Message from Gigi Cronin MD sent at 09/22/2020 9:06 AM CDT ----- Labs show mildly elevated wbc, etiology unclear, please repeat in 1 month, along with lft to assessstability of alk phos MY RN documented in this encounter Plan of Treatment Scheduled Procedures Name Priority Associated Diagnoses Date/Ti ut COLONOSCOPY Encounter for screening colonoscopy documented as of this encounter Visit Diagnoses Not on filedocumented in this encounter Discontinued Medications Medication Sig Discontinue Reason Start Date End Da te rizatriptan MARKETING DEVELOPMENT MANAGER (MAXALT-MARKETING DEVELOPMENT MANAGER) 10 mg disintegrating tabletIndications:Migrain e Take 10 mg by mouth once as needed for migraine May repeat in 2 hours if unresolved. Do not exceed 30 mg in 24 hours. Reorder 09/26/2020 documented as of this encounter Care Teams Vp Of Marketing Relationship Specialty Start Date End Date Gigi Cronin MD [address] [address] PCP - General Internal Medicine 09/17/20 documented as of this encounter
--- OUTSIDE RECORDS SUMMARY | 2024-11-27 20:03 | XMS_ITS | Encounter Summary ---
Author Organization [facility] Address [address] [place] [address] Phone Care Team Providers Care Transit Authority Police Officer Name Role Phone Gigi Cronin MD Primary Care Provider [phone] Encounter Details Date Type Department Care Team (Late st Contact Info) Description 08/07/2021 Orders Only [facility] Surgery [address] [facility] Advanced Medicine 5th [place] [address] [place] [address] Paige Goodrich, CHIP MACHINE OPERATOR [address] [place] [address] Abnormal mammogram (Primary Dx) Social History Tobacco [...] unspecified documented in this encounter Care Teams Transit Authority Police Officer Relationship Specialty Start Date End Date Gigi Cronin MD [address] [address] PCP - General Internal Medicine 09/17/20 documented as of this encounter
--- OUTSIDE RECORDS SUMMARY | 2024-11-27 20:03 | XMS_ITS | Encounter Summary ---
Author Organization [facility] Healthcare Address [address] [place] [address] Care Team Providers Care Family Services Manager Name Role Phone Gigi Cronin MD Primary Care Provider [phone] Encounter Details Date Type Department Care Team (Late st Contact Info) Description 02/26/2021 Telephone [facility] Advanced Medicine Breast Imaging [facility] Advanced Medicine ([facility]) [address] [place] [address] [address] Social History Tobacco Use [...] on filedocumented in this encounter Care Teams Family Services Manager Relationship Specialty Start Date End Date Gigi Cronin MD [address] [facility] [address] [place], [place] [id number] PCP - General Internal Medicine 09/17/20 documented as of this encounter
--- OUTSIDE RECORDS SUMMARY | 2024-11-27 20:03 | XMS_ITS | Encounter Summary ---
Author Organization [facility] Healthcare Address [address] [place] [address] Care Team Providers Care Sewer Line Photo Inspector Name Role Phone Gigi Cronin MD Primary Care Provider [phone] Reason for Referral * Diagnostic Imaging (Routine) - Closed Specialty Diagnoses / Procedures Referred By Rose saleh Referred To Contact Diagnoses Abnormal mammogram Procedures Diagnostic Mammogram Bilateral W Polo Diagnostic Mammogram Left W Kerri Kolb MD [address] [address] Phone: tel: fax: [address] [address] Referral ID Status Reason Start Date Expiration Date Visits Re quested Visits Authorized [id number] Closed 05/01/2022 05/31/2023 1 1 Reason for Visit * Diagnostic Imaging (Routine) - Closed Specialty Diagnoses / Procedures Referred By Rose saleh Referred To Contact Diagnoses Abnormal mammogram Procedures Diagnostic Mammogram Bilateral W Polo Diagnostic Mammogram Left W Kerri Kolb MD [address] [address] Phone: tel: fax: [address] [address] Referral ID Status Reason Start Date Expiration Date Visits Re quested Visits Authorized [id number] Closed 05/01/2022 05/31/2023 1 1 Encounter Details Date Type Department Care Team (Latest Contact Info) Description 05/06/2022 1:49 PM CDT - 05/06/2022 11:59 PM CDT Hospital Encounter [facility] Advanced Medicine [facility] ([facility]) [address] [place] [address] Abnormal mammogram Discharge Disposition: Discharge to home [...] a day 90 tablet 02/19/2022 2 rizatriptan MANAGER TECHNICAL SERVICES (MAXALT-MANAGER TECHNICAL SERVICES) [...] unspecified documented in this encounter Care Teams Sewer Line Photo Inspector Relationship Specialty Start Date End Date Gigi Cronin MD [address] [facility] [address] [place] [address] PCP - General Internal Medicine 09/17/20 documented as of this encounter
--- OUTSIDE RECORDS SUMMARY | 2024-11-27 20:03 | XMS_ITS | Encounter Summary ---
Author Organization [facility] Address [address] [place] [address] Care Team Providers Care Staple Cutter Name Role Phone Gigi Cronin MD Primary Care Provider [phone] Encounter Details Date Type Department Care Team (Late st Contact Info) Description 03/08/2021 [facility] [address] [facility] [address] [place] [address] Gigi Cronin MD [address] [facility] [address] [place] [address] Social History Tobacco Use Types [...] on filedocumented in this encounter Care Teams Staple Cutter Relationship Specialty Start Date End Date Gigi Cronin MD [address] [facility] [address] [place] [address] PCP - General Internal Medicine 09/17/20 documented as of this encounter
--- OUTSIDE RECORDS SUMMARY | 2024-11-27 20:03 | XMS_ITS | Encounter Summary ---
Author Organization [facility] Healthcare Address [address] [place] [address] Care Team Providers Care Deputy General Counsel Name Role Phone Gigi Cronin MD Primary Care Provider [phone] Encounter Details Date Type Department Care Team (Latest Contact Info) Description 03/05/2021 1:41 PM CDT - 03/05/2021 11:59 PM CDT Hospital Encounter [facility]) [address] [place] [address] Discharge Disposition: Discharge to home or self [...] a day 90 tablet 11/26/2020 1 rizatriptan FOOD SERVICE SUPERVISOR (MAXALT-FOOD SERVICE SUPERVISOR) 10 mg disintegrating tabletIndications:Mi graine Take 1 [...] only and have not been reviewed by [facility] Radiology. ??There will be no report generated by a [facility] Radiologist. Narrative [facility]_M[facility]MO[facility] - 03/05/2021 1:41 PM CDT EXAMINATION: ??Images For Reference Purposes Only us Self Referral IMG MAMMO PROCEDURES Final Resul t [facility] documented in this encounter Visit Diagnoses Not on filedocumented in this encounter Care Teams Deputy General Counsel Relationship Specialty Start Date End Date Gigi Cronin MD [address] [place] [address] PCP - General Internal Medicine 09/17/20 documented as of this encounter
--- OUTSIDE RECORDS SUMMARY | 2024-11-27 20:03 | XMS_ITS | Encounter Summary ---
Author Organization [facility] Address [address] [place] [address] Care Team Providers Care Complaint Supervisor Name Role Phone Gigi Cronin MD Primary Care Provider [phone] Encounter Details Date Type Department Care Team (Late st Contact Info) Description 04/09/2021 [facility] [address] [facility] [address] [place] [address] Gigi Cronin MD [address] [facility] [address] [place] [address] Social History Tobacco Use Types [...] Scheduled Procedures Name Priority Associated Diagnoses Date/Ti ct COLONOSCOPY Encounter for screening colonoscopy documented as of this encounter Visit Diagnoses Not on filedocumented in this encounter Care Teams Complaint Supervisor Relationship Specialty Start Date End Date Gigi Cronin MD [address] [address] PCP - General Internal Medicine 09/17/20 documented as of this encounter
--- OUTSIDE RECORDS SUMMARY | 2024-11-27 20:03 | XMS_ITS | Encounter Summary ---
Author Organization [facility] Healthcare Address [address] [place] [address] Care Team Providers Care Dental Prosthetist Name Role Phone Gigi Cronin MD Primary Care Provider [phone] Reason for Referral * Diagnostic Imaging (Routine) - Closed Specialty Diagnoses / Procedures Referred By Rose saleh Referred To Contact Diagnoses Other screening mammogram Procedures Screening Mammogram Bilateral W Gigi Price MD [address] [address] Phone: tel: fax: [address] [address] Referral ID Status Reason Start Date Expiration Date Visits Re quested Visits Authorized [id number] Closed 09/19/2020 10/19/2021 1 1 Reason for Visit * Diagnostic Imaging (Routine) - Closed Specialty Diagnoses / Procedures Referred By Rose saleh Referred To Contact Diagnoses Other screening mammogram Procedures Screening Mammogram Bilateral W Gigi Price MD [address] [address] Phone: tel: fax: [address] [address] Referral ID Status Reason Start Date Expiration Date Visits Re quested Visits Authorized [id number] Closed 09/19/2020 10/19/2021 1 1 Encounter Details Date Type Department Care Team (Latest Contact Info) Description 02/27/2021 10:00 AM CDT - 02/27/2021 11:59 PM CDT Hospital Encounter [facility] Breast [facility]) [address] [place] [address] [address]igi Cronin MD [address] [facility] [address] [place] [address] Other screening mammogram Discharge Disposition: Discharge to [...] a day 90 tablet 11/26/2020 1 rizatriptan GLASS BLOCK BENDER (MAXALT-GLASS BLOCK BENDER) 10 mg disintegrating tabletIndications:Mi graine Take 1 [...] to a prior imaging study performed at [facility]. [facility] on 12/10/2011. The breasts are heterogeneously dense, [...] to a prior imaging study performed at [facility]. [facility] on 12/10/2011. The breasts are heterogeneously dense, [...] mammogram documented in this encounter Care Teams Dental Prosthetist Relationship Specialty Start Date End Date Gigi Cronin MD [address] [place] [address] PCP - General Internal Medicine 09/17/20 documented as of this encounter
--- OUTSIDE RECORDS SUMMARY | 2024-11-27 20:03 | XMS_ITS | Encounter Summary ---
Author Organization [facility] Address [address] [place] [address] Care Team Providers Care Pharmacy Affairs Assistant Name Role Phone Gigi Cronin MD Primary Care Provider [phone] Encounter Details Date Type Department Care Team (Late st Contact Info) Description 01/21/2021 Orders [facility] [address] [address] Gigi Cronin MD [address] [facility] [address] [place] [address] Social History Tobacco Use Types [...] on filedocumented in this encounter Care Teams Pharmacy Affairs Assistant Relationship Specialty Start Date End Date Gigi Cronin MD [address] [facility] [address], [place] [address] PCP - General Internal Medicine 09/17/20 documented as of this encounter
--- OUTSIDE RECORDS SUMMARY | 2024-11-27 20:03 | XMS_ITS | Encounter Summary ---
Author Organization [facility] Healthcare Address [address] [place] [address] Care Team Providers Care Seam Closer Name Role Phone Gigi Cronin MD Primary Care Provider [phone] Reason for Visit * Diagnostic Imaging (Routine) - Closed Specialty Diagnoses / Procedures Referred By Contac t Referred To Contact Diagnoses Abnormal mammogram Procedures US Breast Left Limited US Breast Left Complete Kerri Moyer MD [address] [place] [address] Phone: tel: fax: [address] [address] Referral ID Status Reason Start Date Expiration Date Visits Re quested Visits Authorized [id number] Closed 05/01/2022 05/31/2023 1 1 Encounter Details Date Type Department Care Team (Latest Contact Info) Description 05/06/2022 1:49 PM CDT - 05/06/2022 11:59 PM CDT Hospital Encounter [facility] Breast [facility]) [address] [place] [address] Abnormal mammogram Discharge Disposition: Discharge to [...] a day 90 tablet 02/19/2022 2 rizatriptan DANCE DIRECTOR (MAXALT-DANCE DIRECTOR) 10 mg disintegrating tabletIndications:Mi graine Take 1 [...] unspecified documented in this encounter Care Teams Seam Closer Relationship Specialty Start Date End Date Gigi Cronin MD [address] [address] PCP - General Internal Medicine 09/17/20 documented as of this encounter
--- OUTSIDE RECORDS SUMMARY | 2024-11-27 20:03 | XMS_ITS | Encounter Summary ---
Author Organization [facility] Address [address] [place] [address] Phone Care Team Providers Care Flume Tender Name Role Phone Gigi Cronin MD Primary Care Provider Reason for Referral * Diagnostic Imaging (Routine) - Closed Specialty Diagnoses / Procedures Referred By Rose saleh Referred To Contact Diagnoses Abnormal mammogram Procedures Diagnostic Mammogram Bilateral W Polo Diagnostic Mammogram Left W Polo Kerri Moyer MD [address] [address] Phone: tel: fax: [address] [address] Referral ID Status Reason Start Date Expiration Date Visits Re quested Visits Authorized [id number] Closed 05/01/2022 05/31/2023 1 1 Encounter Details Date Type Department Care Team (Late st Contact Info) Description 05/01/2022 Orders Only [facility] Surgery [address] [facility] 5th [place] [address] [place] [address] Kerri Moyer MD [address] [id number] Abnormal mammogram (Primary Dx) Social History Tobacco [...] unspecified documented in this encounter Care Teams Flume Tender Relationship Specialty Start Date End Date Gigi Cronin MD [address] [facility] [address] [place] [address] PCP - General Internal Medicine 09/17/20 documented as of this encounter
--- OUTSIDE RECORDS SUMMARY | 2024-11-27 20:03 | XMS_ITS | Encounter Summary ---
Author Organization [facility] Healthcare Address [address] [place] [address] Care Team Providers Care Foreign Correspondent Name Role Phone Gigi Cronin MD Primary Care Provider [phone] Reason for Referral * Diagnostic Imaging (Routine) - Closed Specialty Diagnoses / Procedures Referred By Rose saleh Referred To Contact Diagnoses Abnormal mammography Procedures US Breast Left Limited Paige Goodrich NP Phone: tel: fax: [address] [address] Referral ID Status Reason Start Date Expiration Date Visits Re quested Visits Authorized [id number] Closed 05/10/2021 06/09/2022 1 1 Reason for Visit * Diagnostic Imaging (Routine) - Closed Specialty Diagnoses / Procedures Referred By Rose saleh Referred To Contact Diagnoses Abnormal mammography Procedures US Breast Left Limited Paige Goodrich NP Phone: tel: fax: [address] [address] Referral ID Status Reason Start Date Expiration Date Visits Re quested Visits Authorized [id number] Closed 05/10/2021 06/09/2022 1 1 Encounter Details Date Type Department Care Team (Late st Contact Info) Description 08/07/2021 9:56 AM CDT - 08/07/2021 11:59 PM CDT Hospital Encounter [facility] Breast [facility]) [facility] [place] [address] Paige Goodrich NP [address] [place] [address] Abnormal mammography Discharge Disposition: Discharge to home [...] a day 90 tablet 08/02/2021 1 rizatriptan CENTRIFUGAL SPINNER (MAXALT-CENTRIFUGAL SPINNER) 10 mg disintegrating tabletIndications:Mi graine Take 1 [...] unspecified documented in this encounter Care Teams Foreign Correspondent Relationship Specialty Start Date End Date Gigi Cronin MD [address] [facility] [address] [place] [address] PCP - General Internal Medicine 09/17/20 documented as of this encounter
--- OUTSIDE RECORDS SUMMARY | 2024-11-27 20:03 | XMS_ITS | Encounter Summary ---
Author Organization [facility] Healthcare Address [address] [place] [address] Care Team Providers Care Stratigrapher Name Role Phone Gigi Cronin MD Primary Care Provider [phone] Reason for Visit * Reason Onset Date Comments elective colonoscopy 10/26/2020 Encounter Details Date Type Department Care Team (Late st Contact Info) Description 10/26/2020 Telephone [facility] Specialty Services [address] [place] [address] Malou Gee, RN elective colonoscopy Social History [...] voicemail to call back to schedule colonoscopy. COUNCIL MEMBER * Telephone Encounter - Malou Gee RN - 10/26/2020 8:40 AM CITY COUNCIL MEMBER Please contact the patient regarding scheduling their [...] be scheduled with sedation provided by the lance crewmember. This is called concious sedation and is [...] prep choice:Nulytely split prep ??? Language preference: citizen of [place] Is an certified maintenance welder needed: no ??? Implanted Device no ??? Special Instructions (i.e. needs to be scheduled with an interventionalist) no Thank you so much! Malou Gee RN COUNCIL MEMBER documented in this encounter Plan of Treatment Scheduled Procedures Name Priority Associated Diagnoses Date/Ti me COLONOSCOPY Encounter for screening colonoscopy documented as of this encounter Visit Diagnoses Not on filedocumented in this encounter Care Teams Stratigrapher Relationship Specialty Start Date End Date Gigi Cronin MD [address] [address] PCP - General Internal Medicine 09/17/20 documented as of this encounter
--- OUTSIDE RECORDS SUMMARY | 2024-11-27 20:03 | XMS_ITS | Encounter Summary ---
Author Organization [facility] Address [address] [place] [address] Care Team Providers Care Electrician Supervisor Substation Name Role Phone Gigi Cronin MD Primary Care Provider Encounter Details Date Type Department Care Team (Late st Contact Info) Description 09/24/2020 [facility] [address] [facility] [address] [place] [address] Gigi Cronin MD [address] [facility] [address] [place] [address] Social History Tobacco Use Types [...] 4:59 PM CST lmom to call office NTER MACHINE * Telephone Encounter - Danielle Quiros - 09/24/2020 4:59 PM CST ----- Message from Gigi Cronin MD sent at 09/22/2020 9:06 AM CDT ----- Labs show mildly elevated wbc, etiology unclear, please repeat in 1 month, along with lft to assessstability of alk phos NTER MACHINE documented in this encounter Plan of Treatment Scheduled Procedures Name Priority Associated Diagnoses Date/Ti me COLONOSCOPY Encounter for screening colonoscopy documented as of this encounter Visit Diagnoses Not on filedocumented in this encounter Care Teams Electrician Supervisor Substation Relationship Specialty Start Date End Date Gigi Cronin MD [address] [place] [address] PCP - General Internal Medicine 09/17/20 documented as of this encounter
--- OUTSIDE RECORDS SUMMARY | 2024-11-27 20:03 | XMS_ITS | Encounter Summary ---
Author Organization [facility] Address [address] [place] [address] Phone Care Team Providers Care Housekeeping Worker Name Role Phone Gigi Cronin MD Primary Care Provider [phone] Reason for Referral * Diagnostic Imaging (Routine) - Closed Specialty Diagnoses / Procedures Referred By Rose saleh Referred To Contact Diagnoses Abnormal mammography Procedures US Breast Left Limited Paige Goodrich NP Phone: tel: fax: [address] [address] Referral ID Status Reason Start Date Expiration Date Visits Re quested Visits Authorized [id number] Closed 05/10/2021 06/09/2022 1 1 Encounter Details Date Type Department Care Team (Late st Contact Info) Description 05/10/2021 Orders Only [facility] Surgery [address] [facility] Advanced Medicine 5th [place] [address] [place] [address] Paige Goodrich NP [address] [place] [address] Abnormal mammography (Primary Dx) Social [...] unspecified documented in this encounter Care Teams Housekeeping Worker Relationship Specialty Start Date End Date Gigi Cronin MD [address] [address] PCP - General Internal Medicine 09/17/20 documented as of this encounter
--- OUTSIDE RECORDS SUMMARY | 2024-11-27 20:03 | XMS_ITS | Encounter Summary ---
Author Organization [facility] Healthcare Address [address] [place] [address] Care Team Providers Care Shipping Track Supervisor Name Role Phone Gigi Cronin MD Primary Care Provider [phone] Reason for Referral * Diagnostic Imaging (Routine) - Closed Specialty Diagnoses / Procedures Referred By Rose saleh Referred To Contact Diagnoses Abnormal mammogram Procedures US Breast Left Limited Gigi Cronin MD [address] [employer] [address] [address] Phone: tel: fax: [address] [address] Referral ID Status Reason Start Date Expiration Date Visits Re quested Visits Authorized [id number] Closed 03/06/2021 04/05/2022 1 1 Reason for Visit * Diagnostic Imaging (Routine) - Closed Specialty Diagnoses / Procedures Referred By Rose saleh Referred To Contact Diagnoses Abnormal mammogram Procedures US Breast Left Limited Gigi Cronin MD [address] [employer] [address] [address] Phone: tel: fax: [address] [address] Referral ID Status Reason Start Date Expiration Date Visits Re quested Visits Authorized [id number] Closed 03/06/2021 04/05/2022 1 1 Encounter Details Date Type Department Care Team (Latest Contact Info) Description 03/27/2021 1:45 PM CDT - 03/27/2021 11:59 PM CDT Hospital Encounter [facility] [address] [place] [address] Gigi Cronin MD [address] [facility] [address] [place] [address] Abnormal mammogram Discharge Disposition: Discharge to home [...] a day 90 tablet 11/26/2020 1 rizatriptan ACCOUNTS PAYABLE OR RECEIVABLE CLERK (MAXALT-ACCOUNTS PAYABLE OR RECEIVABLE CLERK) 10 mg disintegrating tabletIndications:Mi graine Take [...] Scheduled Procedures Name Priority Associated Diagnoses Date/Ti vt COLONOSCOPY Encounter for screening colonoscopy documented as [...] unspecified documented in this encounter Care Teams Shipping Track Supervisor Relationship Specialty Start Date End Date Gigi Cronin MD [address] [address] PCP - General Internal Medicine 09/17/20 documented as of this encounter
--- OUTSIDE RECORDS SUMMARY | 2024-11-27 20:03 | XMS_ITS | Encounter Summary ---
Author Organization [facility] Healthcare Address [address] [place] [address] Care Team Providers Care Housekeeping Associate Name Role Phone Gigi Cronin MD Primary Care Provider [phone] Encounter Details Date Type Department Care Team (Late st Contact Info) Description 03/26/2021 Telephone [facility] Breast Imaging [facility] ([facility]) [address] [place] [address] Deana Padgett RT Social History Tobacco Use [...] on filedocumented in this encounter Care Teams Housekeeping Associate Relationship Specialty Start Date End Date Gigi Cronin MD [facility] [address] [place] [address] PCP - General Internal Medicine 09/17/20 documented as of this encounter
--- OUTSIDE RECORDS SUMMARY | 2024-11-27 20:03 | XMS_ITS | Encounter Summary ---
Author Organization [facility] Address [address] [place] [address] Care Team Providers Care Recovery Manager Name Role Phone Gigi Cronin MD Primary Care Provider [phone] Encounter Details Date Type Department Care Team (Late st Contact Info) Description 09/27/2020 Orders [facility] [address] [facility] [address] [place] [id number] Scanning, Provider Social History Tobacco Use Types [...] SCAN - OTHER ORDERS 09/27/2020 7:47 AM TURRET LATHE MACHINIST documented in this encounter Results * SCAN - OTHER ORDERS (09/27/2020 7:47 AM TURRET LATHE MACHINIST) us Provider Scanning Final Result documented in this encounter Visit Diagnoses Not on filedocumented in this encounter Care Teams Recovery Manager Relationship Specialty Start Date End Date Gigi Cronin MD [address] [facility] [address] [place], [place] [id number] PCP - General Internal Medicine 09/17/20 documented as of this encounter
--- OUTSIDE RECORDS SUMMARY | 2024-11-27 20:03 | XMS_ITS | Encounter Summary ---
Author Organization [facility] Address [address] [place] [address] Phone Care Team Providers Care Stoneworker Name Role Phone Gigi Cronin MD Primary Care Provider [phone] Reason for Visit * Reason Comments Initial Consult * Consultation (Routine) - Closed Specialty Diagnoses / Procedures Referred By Rose saleh Referred To Contact Surgery / Breast Surgery Diagnoses Abnormal mammogram Gigi Cronin MD [address] [facility] [address] [place] [address] Phone: tel: fax: Kerri Moyer MD [facility] [address] [place] [address] Phone: tel: fax: Referral ID Status Reason Start Date Expiration Date V isits Requested Visits Authorized [id number] Closed Specialty Services Required 04/08/2021 05/08/2022 99 99 Encounter Details Date Type Department Care Team (Late st Contact Info) Description 08/07/2021 9:30 AM CDT Office Visit [facility] Surgery [address] [place] [address] 5th [place] [address] [place] [id number] Paige Goodrich NP [address] [place] [address] Abnormal mammogram (Primary Dx) Social History Tobacco [...] Mccullough : 1965 DATE: 08/07/2021 REFERRING MD: Gigi Cronin MD CHIEF COMPLAINT: Evaluation of left [...] : ALPRAZolam (XANAX) 0.25 mg tablet rizatriptan ICE CREAM MAN (MAXALT-ICE CREAM MAN) 10 mg disintegrating tablet No Known [...] and Family: Not on file ??? Attends [employer]: Not on file ??? Active Member [...] Portions of this note were dictated using [employer] Direct speech recognition software. Please excuse any bag loader machine operator errors. documented in this encounter Plan of Treatment Scheduled Procedures Name Priority Associated Diagnoses Date/Ti me COLONOSCOPY Encounter for screening colonoscopy Scheduled Referrals Name Type Priority Associated Diagnoses Order Schedule Ambulatory referral to Breast Surgery Outpatient Referral Routine Abnormal mammogram Ordered: 04/08/2021 documented as of this encounter Visit Diagnoses Diagnosis Abnormal mammogram- Primary Abnormal mammogram, unspecified documented in this encounter Care Teams Stoneworker Relationship Specialty Start Date End Date Gigi Cronin MD [address] [address] PCP - General Internal Medicine 09/17/20 documented as of this encounter
--- OUTSIDE RECORDS SUMMARY | 2024-11-27 20:03 | XMS_ITS | Encounter Summary ---
Author Organization [facility] Address [address] [place] [address] Phone Care Team Providers Care Architectural Design Professor Name Role Phone Gigi Cronin MD Primary Care Provider [phone] Reason for Visit * Consultation (Routine) - Closed Specialty Diagnoses / Procedures Referred By Rose saleh Referred To Contact Surgical Oncology Diagnoses Abnormal mammogram Gigi Cronin MD [address] [facility] [address] [place] [address] Phone: tel: fax: [facility] (All Locations) Referral ID Status Reason Start Date Expiration Date V isits Requested Visits Authorized [id number] Closed Specialty Services Required 08/07/2021 09/06/2022 1 1 Encounter Details Date Type Department Care Team (Late st Contact Info) Description 05/06/2022 1:45 PM CDT Office Visit [facility] Surgery [address] [facility] 5th [place] [address] [place] [phone] Kerri Moyer MD [address] [facility] [address] [place] [address] Abnormal mammogram (Primary Dx) Social [...] 05/06/2022 1:45 PM CDT Kerri Moyer M.D., [facility] ?? Department of Surgery [address] [place] [address] ?? [place] [address] ? 05/06/22 CHIEF COMPLAINT: Follow-up for left [...] : ALPRAZolam (XANAX) 0.25 mg tablet rizatriptan MANAGER OF COMPLIANCE (MAXALT-MANAGER OF COMPLIANCE) 10 mg disintegrating tablet No Known Allergies [...] 022 documented in this encounter Care Teams Architectural Design Professor Relationship Specialty Start Date End Date Gigi Cronin MD [address] [address] PCP - General Internal Medicine 09/17/20 documented as of this encounter
--- OUTSIDE RECORDS SUMMARY | 2024-11-27 20:03 | XMS_ITS | Encounter Summary ---
Author Organization [facility] Address [address] [place] [address] Care Team Providers Care Talent Analyst Name Role Phone Gigi Cronin MD Primary Care Provider [phone] Reason for Referral * Diagnostic Imaging (Routine) - Closed Specialty Diagnoses / Procedures Referred By Contac t Referred To Contact Diagnoses Other screening mammogram Procedures Screening Mammogram Bilateral W Gigi Price MD [address] [facility] [address] [address] Phone: tel: fax: [address] [address] Referral ID Status Reason Start Date Expiration Date Visits Re quested Visits Authorized [id number] Closed 09/19/2020 10/19/2021 1 1 Reason for Visit * Reason Comments New Patient Encounter Details Date Type Department Care Team (Late st Contact Info) Description 09/19/2020 12:15 PM CDT Office Visit [facility] [address] [facility] [address] [place] [facility] [place] [phone] Gigi Cronin MD [address] [facility] [address] [place] [address] Other screening mammogram (Primary Dx); [...] Current Outpatient Medications Medication Sig ??? rizatriptan BOOKING AGENT (MAXALT-BOOKING AGENT) 10 mg disintegrating tablet Take 10 mg [...] Scheduled Procedures Name Priority Associated Diagnoses Date/Ti nd COLONOSCOPY Encounter for screening colonoscopy documented as [...] to a prior imaging study performed at [facility]. [facility] on 12/10/2011. The breasts are heterogeneously dense, [...] to a prior imaging study performed at [facility] on 12/10/2011. The breasts are heterogeneously dense, [...] 7:08 AM CDT Performed at: ?? - [address] ??[id number] Slitter Service And Setter: Too Peraza PhD, Phone: ??[phone] Gigi Cronin MD LAB BLOOD ORDERABLES Final Re sult Performing Organization Address [facility] de Phone Number [facility] * TSH (09/19/2020 1:02 PM CDT) TSH 0.911 0.450 - 4.500 uIU/mL [facility] - 01 Blood specimen (specimen) 09/19/2020 1:02 PM CDT 09/19/2020 Narrative [facility] - 09/20/2020 7:08 AM CDT Performed at: ?? [address] ??[id number] Slitter Service And Setter: Too Peraza PhD, Phone: ??[phone] us Gigi Cronin MD LAB BLOOD ORDERABLES Final Re sult Performing Organization Address [facility] de Phone Number [facility] - * (ABNORMAL) Urinalysis reflex to microscopic and culture Urine (09/19/2020 1:02 PM CDT) Pathologist [facility] Specific [place] 1.027 1.005 - 1.030 [facility] - 01 [...] AM CDT Performed at: ??01 - [facility] [address] ??[id number] Slitter Service And Setter: Too Peraza PhD, Phone: ??[phone] us Gigi Cronin MD LAB MICROBIOLOGY - GENERAL OR DERABLES Final Result [facility] - 01 * (ABNORMAL) Comprehensive metabolic panel (09/19/2020 1:02 PM CDT) Pathologist [facility] Glucose 90 65 - 99 mg/dL [facility] [...] AM CDT Performed at: ??01 - [facility] [address] ??[id number] Slitter Service And Setter: Too Peraza PhD, Phone: ??[phone] us Gigi Cronin MD LAB BLOOD ORDERABLES [...] AM CDT Performed at: ??01 - [facility] [address] ??[id number] Slitter Service And Setter: Too Peraza PhD, Phone: ??[phone] us Gigi Cronin MD LAB BLOOD ORDERABLES [...] reflect changes made after this encounter. rizatriptan BOOKING AGENT (MAXALT-BOOKING AGENT) 10 mg disintegrating tabletIndications:Mi graine Take 10 [...] 09/19/2020 documented in this encounter Care Teams Talent Analyst Relationship Specialty Start Date End Date Gigi Cronin MD [address] [place] [address] PCP - General Internal Medicine 09/17/20 documented as of this encounter
--- OUTSIDE RECORDS SUMMARY | 2024-11-27 20:03 | XMS_ITS | Encounter Summary ---
Author Organization [facility] Address [address] [place] [address] Care Team Providers Care Manager Human Capital Name Role Phone Gigi Cronin MD Primary Care Provider [phone] Reason for Referral * Consultation (Routine) - Closed Specialty Diagnoses / Procedures Referred By Contac t Referred To Contact Surgery / Breast Surgery Diagnoses [place] [address] [place], [place] [id number] Phone: tel: fax: Eleazar Moyer MD [address] [place], [place] [address] Phone: tel: fax: Referral ID Status Reason Start Date Expiration Date V isits Requested Visits Authorized [id number] Closed Specialty Services Required 04/08/2021 05/08/2022 99 99 Question Answer Is this referral for Breast [facility]? No Please select the performing region: [facility] (All Locations) [167] To provider: ELEAZAR MOYER [[id number]] # of visits: 1 Comments Abnormal ultrasound Encounter Details Date Type Department Care Team (Late st Contact Info) Description 04/08/2021 Orders Only [facility] [address] [facility] [address] [place] [address] Gigi Cronin MD [address] [address] Abnormal mammogram (Primary Dx) Social History Tobacco [...] Date/Ti nh COLONOSCOPY Encounter for screening colonoscopy Scheduled Referrals Name Type Priority Associated Diagnoses Order Schedule Ambulatory referral to Breast Surgery Outpatient Referral Routine Abnormal mammogram Ordered: 04/08/2021 documented as of this encounter Visit Diagnoses Diagnosis Abnormal mammogram- Primary Abnormal mammogram, unspecified documented in this encounter Care Teams Manager Human Capital Relationship Specialty Start Date End Date Gigi Cronin MD [address] [address] PCP - General Internal Medicine 09/17/20 documented as of this encounter
== END 2024-11-20 19:47 | disposition home or self-care (01) ==
PROVIDERS: Emergency Medicine; Emergency Provider Physician Assistant
DX: J43.9 Emphysema, unspecified (principal); Z20.822 Contact with and (suspected) exposure to COVID-19
CPT/HCPCS: 36415; 71046; 71275; 80053; 83880; 84484; 85025; 85380; 85610; 85730; 87637; 93005; 94640; 96361; 96374; 99284; J2919; J7030; Q9967